=== PATIENT | female | born 1980 | race Caucasian/White ===

== ENCOUNTER 2016-12-28 05:33 | Inpatient (IN) | payer MEDICARE ==
[~2016-12-28] VITALS: Ht 167.6 cm; Wt 65.8 kg
[~2016-12-28 05:33] MED LIST: AMOX500C2 PO; ATOR10TA66 PO; ATOR40TA70 PO; B12 SC; B12 SQ; CINN500C7 PO; FENO134C PO; FENO134C2 PO; FERR-57 PO; FERR-65 PO; FURO40TA4 PO; GMFB600T PO; HDR4T PO; INSU100I14 SC; INSU100I17 SQ; INSU100V SQ; INSU100V16 SQ; INSU100V5 SQ; KCL20TCR PO; LEVE1U SQ; LEVO500T69 PO; LEVO750T6 PO; LIPA1CAP2 PO; LISI10TA2 PO; LISI5TAB PO; MAGN400C PO; MAGN400T6 PO; METF-478 PO; METF-479 PO; METF500T4 PO; METF500T8 PO; METR500T PO; MTF500T PO; OMG1KC PO; ONDA-42 SL; OXYC5TAB71 PO; PROM25SU10 PR; SULF1TAB35 PO; VITAMIN; [UNRECOGNIZED DRUG - CODE] MC; [UNRECOGNIZED DRUG - OTHER]
[2016-12-28] MEDS ORDERED: NS IV 1000 ML 1,000 ML IV ONE (05:36)
--- OUTSIDE RECORDS SUMMARY | 2016-12-28 05:38 | XMS REPORT | Continuity of Care Document ---
Author Author [facility] Organization [facility] Address Unknown Phone Unavailable Care Team Providers Care Parking Cashier Name Role Phone PCP Unavailable Source Comments Some departments are not documenting in the electronic medical record. If you do not see the information that you expected, contact Release of Information in the Health Information Management department at [phone] for further assistance in locating additional records.[facility] Active Allergies and Adverse Reactions Not on File Current Medications Not on file Active Problems Not on file Social History Tobacco Use Types Packs/Day Years Used Date Never Assessed Plan of Care Health Maintenance Due Date Last Done Comments Physical (Comprehensive) 1988 Exam Pertussis Vaccine 1992 Tetanus Vaccine 1998 Cervical Cancer Screening 2002 Influenza Vaccine 07/31/2016 Results from Last 3 Months Not on file
[2016-12-28] MEDS ORDERED: fentaNYL INJECTION 100 MCG/2 ML AMP IVP ONE ×2 (05:45→06:15)
[2016-12-28] MEDS ORDERED: ONDANSETRON 4 MG/2 ML (SDV) Z0FRAN IVP ONE (05:45)
[2016-12-28] MEDS ORDERED: FAMOTIDINE 20MG/2ML IV (PEPCID) IVP ONE (05:45)
[2016-12-28] MEDS ORDERED: inSUlin (REGULAR) HUMAN 1 UNIT/0.01 ML (CHARGE PER UNIT) IV ONE ×2 (05:45→08:15)
[2016-12-28 05:51] LABS: BASOPHILS % (AUTO) 0 % (0-10); EOSINOPHILS # (AUTO) 0.1 10^3/uL (0.0-0.3); EOSINOPHILS % (AUTO) 1 % (0-10); LYMPHOCYTES # (AUTO) 0.9 X 10^3 (1.0-4.0); LYMPHOCYTES % (AUTO) 14 % (12-44); MEAN CORPUSCULAR HEMOGLOBIN 31 PG (25-34); MEAN CORPUSCULAR HGB CONC 38 G/DL (32-36); MEAN CORPUSCULAR VOLUME 82 FL (80-99); MEAN PLATELET VOLUME 10.6 FL (7.4-10.4); MONOCYTES # (AUTO) 1.8 X 10^3 (0.0-1.0); MONOCYTES % (AUTO) 28 % (0-12); NEUTROPHILS # (AUTO) 3.6 X 10^3 (1.8-7.8); NEUTROPHILS % (AUTO) 57 % (42-75); PLATELET COUNT 262 10^3/uL (130-400); RED BLOOD COUNT 4.24 10^6/uL (4.35-5.85); RED CELL DISTRIBUTION WIDTH 14.5 % (10.0-14.5); WHITE BLOOD COUNT 6.4 10^3/uL (4.3-11.0)
--- NOTE | 2016-12-28 06:03 | ED Abdominal Pain ---
General Chief Complaint: Abdominal/GI Problems Stated Complaint: ABD PAIN, N/V Nursing Triage Note: Patient reports having epigastric pain starting about 0430 with N/V starting at 0500. patient reports pain is similar to previous pancreatitis Sepsis Screen: Possible Sepsis Risk Source of Information: Patient, Old Records Exam Limitations: No Limitations (SUZANNA HUNT MD) History of Present Illness Time Seen By Provider: 05:38 Initial Comments This 36-year-old woman presents to the emergency room with complaints of fairly abrupt onset of upper abdominal pain, nausea, and vomiting starting about one hour prior to arrival. She has extensive history of numerous admissions for abdominal pain and pancreatitis. She has insulin-dependent diabetes and has not taken her insulin in the last 24 hours citing reasons of social problems related to her mother's and family arguments. Fingerstick blood sugar was 402. (SUZANNA HUNT MD) Allergies and Home Medications Allergies Coded Allergies: hydromorphone (Unverified Allergy, Intermediate, 08/18/16) Itching Home Medications Insulin Aspart 100 Unit/1 Ml Susp #1 15 UNIT SQ TIDAC Prescribed by: GREER JOHN on 09/30/16 1437 Insulin Determir 1,000 Units/10 Ml Soln #1 25 UNITS SQ BID Prescribed by: GREER JOHN on 09/30/16 1437 Review of Systems Constitutional: no symptoms reported EENTM: No Symptoms Reported Respiratory: No Symptoms Reported Cardiovascular: No Symptoms Reported Gastrointestinal: See HPI Genitourinary: No Symptoms Reported Musculoskeletal: no symptoms reported Skin: no symptoms reported Psychiatric/Neurological: No Symptoms Reported Endocrine: See HPI Hematologic/Lymphatic: No Symptoms Reported (SUZANNA HUNT MD) Past Uqydiih-Ottxcm-Anbjfw Hx Patient Social History Alcohol Use: Denies Use Recreational Drug Use: No Smoking Status: Never a Smoker Recent Foreign Travel: No Contact w/Someone Who Travel: No Recent Infectious Disease Expo: No Recent Hopitalizations: No Physical Abuse Screen: No Sexual Abuse: No (SUZANNA HUNT MD) Immunizations Up To Date Tetanus Booster (TDap): Unknown PED Vaccines UTD: No Date of Pneumonia Vaccine: Oct 21, 2013 Date of Influenza Vaccine: Aug 30, 2016 (SUZANNA HUNT MD) Seasonal Allergies Seasonal Allergies: No (SUZANNA HUNT MD) Surgeries HX Surgeries: Yes (DENTAL SURGERY) Surgeries: Tubal Ligation (SUZANNA HUNT MD) Respiratory Hx Respiratory Disorders: No (SUZANNA HUNT MD) Cardiovascular Hx Cardiac Disorders: Yes Cardiac Disorders: High Cholesterol (SUZANNA HUNT MD) Neurological Hx Neurological Disorders: No (SUZANNA HUNT MD) 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 System Hx 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 Disorders: No Sexually Transmitted Disease: No HIV/AIDS: No Female 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 Disorders: Denies MANAGER UNDERWRITING History: Tubal Ligation (SUZANNA HUNT MD) Genitourinary Hx Genitourinary Disorders: Yes Genitourinary Disorders: Bladder Infection (SUZANNA HUNT MD) Gastrointestinal Hx Gastrointestinal Disorders: Yes Gastrointestinal Disorders: Pancreatitis (SUZANNA HUNT MD) Musculoskeletal Hx Musculoskeletal Disorders: No (SUZANNA HUNT MD) Endocrine Hx Endocrine Disorders: Yes Endocrine Disorders: Diabetes, Insulin dep (SUZANNA HUNT MD) HEENT HX ENT Disorders: No Loss of Vision: Denies Hearing Impairment: Denies (SUZANNA HUNT MD) Cancer Hx Cancer: No (SUZANNA HUNT MD) Psychosocial Hx Psychiatric Problems: No (SUZANNA HUNT MD) Integumentary HX Skin/Integumentary Disorder: Yes (rash/warts to elbows, knees, feet) Skin/Integumentary Disorders: Recent Skin Changes (SUZANNA HUNT MD) Blood Transfusions Hx Blood Disorders: No Adverse Reaction to a Blood Tr: No (SUZANNA HUNT MD) Family Medical History Significant Family History: Heart Disease, CAD Under 55 Years Old, Diabetes, GI Disease, Hypertension Family Medial History: Cancer 03 MOTHER 09 BROTHER GRANDMOTHER Family history: Arthritis 03 MOTHER Family history: Breast disease 03 MOTHER Family history: Cardiovascular disease 03 MOTHER Family history: Diabetes mellitus 03 MOTHER 09 BROTHER GRANDMOTHER (SUZANNA HUNT MD) Family Medial History: Cancer 03 MOTHER 09 BROTHER GRANDMOTHER Family history: Arthritis 03 MOTHER Family history: Breast disease 03 MOTHER Family history: Cardiovascular disease 03 MOTHER Family history: Diabetes mellitus 03 MOTHER 09 BROTHER GRANDMOTHER (KIAN AKERS MD) Physical Exam Vital Signs VS - Last 72 Hours, by Label 12/28/16 12/28/16 05:39 05:49 Temp 97.3 97.3 Pulse 117 Resp 24 B/P 162/103 Pulse Ox 99 (KIAN AKERS MD) Vital Signs Capillary Refill : Less Than 3 Seconds (SUZANNA HUNT MD) General Appearance: moderate distress HEENT: PERRL/EOMI normal ENT inspection pharynx normal Neck: normal inspection Respiratory: lungs clear normal breath sounds no respiratory distress no accessory muscle use Cardiovascular: no edema no murmur tachycardia Gastrointestinal: normal bowel sounds soft tenderness (diffuse but more concentrated in the epigastrium) Extremities: normal inspection no pedal edema 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 no motor/sensory deficits alert normal mood/affect oriented x 3 Skin: normal color warm/dry (SUZANNA HUNT MD) Progress/Results/Core Measures Results/Orders Lab Results Laboratory Tests Test 12/28/16 05:44 12/28/16 05:45 12/28/16 06:37 12/28/16 07:01 Range/Units Glucometer 402 *H 285 H 70-110 MG/DL Alanine Aminotransferase (ALT/SGPT) 0-55 U/L Albumin 4.1 3.2-4.5 G/DL Alkaline Phosphatase 57 40-136 U/L Anion Gap 27 H 5-14 MMOL/L Aspartate Amino Transf (AST/SGOT) 5-34 U/L BUN/Creatinine Ratio 8 Basophils # (Auto) 0.0 0.0-0.1 10^3/uL Basophils (%) (Auto) 0 0-10 % Blood Urea Nitrogen 7 7-18 MG/DL Calcium Level 9.4 8.5-10.1 MG/DL Carbon Dioxide Level < 10 *L 21-32 MMOL/L Chloride Level 88 L 98-107 MMOL/L Creatinine 0.87 0.60-1.30 MG/DL Eosinophils # (Auto) 0.1 0.0-0.3 10^3/uL Eosinophils (%) (Auto) 1 0-10 % Estimat Glomerular Filtration Rate > 60 Glucose Level 352 H 70-105 MG/DL Hematocrit 35 35-52 % Hemoglobin 13.1 11.5-16.0 G/DL Lipase 320 H 8-78 U/L Lymphocytes # (Auto) 0.9 L 1.0-4.0 X 10^3 Lymphocytes (%) (Auto) 14 12-44 % Mean Corpuscular Hemoglobin 31 25-34 PG Mean Corpuscular Hemoglobin Concent 38 H 32-36 G/DL Mean Corpuscular Volume 82 80-99 FL Mean Platelet Volume 10.6 H 7.4-10.4 FL Monocytes # (Auto) 1.8 H 0.0-1.0 X 10^3 Monocytes (%) (Auto) 28 H 0-12 % Neutrophils # (Auto) 3.6 1.8-7.8 X 10^3 Neutrophils (%) (Auto) 57 42-75 % Platelet Count 262 130-400 10^3/uL Potassium Level 3.2 L 3.6-5.0 MMOL/L Red Blood Count 4.24 L 4.35-5.85 10^6/uL Red Cell Distribution Width 14.5 10.0-14.5 % Sodium Level 125 *L 135-145 MMOL/L Total Bilirubin 0.2 0.1-1.0 MG/DL Total Protein 12.2 H 6.4-8.2 G/DL Triglycerides Level 7540 H <150 MG/DL White Blood Count 6.4 4.3-11.0 10^3/uL Urine Bacteria NEGATIVE /HPF Urine Bilirubin NEGATIVE NEGATIVE Urine Casts NONE /LPF Urine Clarity CLEAR Urine Color YELLOW Urine Crystals NONE /LPF Urine Culture Indicated NO Urine Glucose (UA) 4+ H NEGATIVE Urine Ketones 4+ H NEGATIVE Urine Leukocyte Esterase NEGATIVE NEGATIVE Urine Mucus NEGATIVE /LPF Urine Nitrite NEGATIVE NEGATIVE Urine Protein 3+ H NEGATIVE Urine RBC NONE /HPF Urine RBC (Auto) 1+ H NEGATIVE Urine Specific [place] 1.020 1.016-1.022 Urine Squamous Epithelial Cells 10-25 H /HPF Urine Urobilinogen NORMAL NORMAL MG/DL Urine WBC 0-2 /HPF Urine pH 6 5-9 (KIAN AKERS MD) My Orders Orders-KIAN AKERS MD Triglycerides (12/28/16 06:55) (KIAN AKERS MD) Medications Given in ED Current Medications Medications Dose Ordered Sig/Faheem Route Start Time Stop Time Status Last Admin Dose Admin Famotidine 20 mg ONCE ONCE IVP 12/28/16 05:45 12/28/16 05:46 DC 12/28/16 05:48 20 MG Fentanyl Citrate 100 mcg ONCE ONCE IVP 12/28/16 05:45 12/28/16 05:46 DC 12/28/16 05:49 100 MCG Fentanyl Citrate 100 mcg ONCE ONCE IVP 12/28/16 06:15 12/28/16 06:16 DC 12/28/16 06:09 100 MCG Insulin Human Regular 10 unit ONCE ONCE IV 12/28/16 05:45 12/28/16 05:46 DC 12/28/16 05:49 10 UNIT Ondansetron HCl 8 mg ONCE ONCE IVP 12/28/16 05:45 12/28/16 05:46 DC 12/28/16 05:48 8 MG Sodium Chloride 1,000 ml @ 0 mls/hr Q0M ONCE IV 12/28/16 05:36 12/28/16 05:39 DC 12/28/16 05:48 0 MLS/HR (KIAN AKERS MD) Vital Signs/I&O Vital Sign - Last 12Hours 12/28/16 12/28/16 05:39 05:49 Temp 97.3 97.3 Pulse 117 Resp 24 B/P 162/103 Pulse Ox 99 (KIAN AKERS MD) Blood Pressure Mean: 122 Progress Note : Time: 06:03 Progress Note Labs were ordered. Patient was given fentanyl, Pepcid, and Zofran for initial treatment of symptoms. IV fluids were initiated. Fingerstick blood sugar was found to be 402. 10 units of insulin was added to her liter of normal saline. (SUZANNA HUNT MD) Departure Communication Progress Notes Patient care was transferred [place] by Dr. Sanchez at 0600 hours. The patient is a 36-year-old white female diabetic who has had multiple ER contacts and admissions for pancreatitis, hypertriglyceridemia, and on occasion diabetic ketoacidosis. Her compliance with medical regimen has been poor. She reports that she didn't take her insulin yesterday because of stress. Physical exam: She has been very whiny and tearful. She has taken goodly amounts of fentanyl and frequently requests more. Lungs are clear to auscultation. CV is regular without murmur. The abdomen is tender to palpation. The patient was discussed with Dr. Chan and will be admitted and placed on the diabetic/ hypertriglyceridemia insulin drip protocol. (KIAN AKERS MD) Impression Impression: Primary Impression: pancreatitis Disposition: ADMITTED INPATIENT Condition: Improved Decision to Admit Reason: Admit from ER (General) Decision to Admit/Date: Dec 28, 2016 Time/Decision to Admit Time: 07:29 (KIAN AKERS MD) Departure-Patient Inst. Referrals: [facility] ROSS MD (PCP/Family) Primary Care Physician SUZANNA HUNT MD Dec 28, 2016 06:03 KIAN AKERS MD Dec 28, 2016 07:29
[2016-12-28 06:10] LABS: ALBUMIN 4.1 G/DL (3.2-4.5); BILIRUBIN,TOTAL 0.2 MG/DL (0.1-1.0); BLOOD UREA NITROGEN 7 MG/DL (7-18); BUN/CREATININE RATIO 8; CALCIUM 9.4 MG/DL (8.5-10.1); CHLORIDE 88 MMOL/L (98-107); CREATININE SERUM 0.87 MG/DL (0.60-1.30); GFR ESTIMATED > 60; LIPASE 320 U/L (8-78); POTASSIUM 3.2 MMOL/L (3.6-5.0); TOTAL PROTEIN 12.2 G/DL (6.4-8.2)
[2016-12-28 06:16] LABS: SODIUM 125 MMOL/L (135-145)
[2016-12-28 06:33] LABS: GLUCOSE 352 MG/DL (70-105)
[2016-12-28 06:36] LABS: ANION GAP 27 MMOL/L (5-14)
[2016-12-28 06:37] LABS: CARBON DIOXIDE < 10 MMOL/L (21-32)
[2016-12-28 07:06] LABS: BILIRUBIN,URINE NEGATIVE (NEGATIVE); KETONES,URINE 4+ (NEGATIVE); LEUKOCYTE ESTERASE ,URINE NEGATIVE (NEGATIVE); NITRITE,URINE NEGATIVE (NEGATIVE); PH,URINE 6 (5-9); PROTEIN,URINE 3+ (NEGATIVE); UROBILINOGEN,URINE NORMAL (NORMAL)
[2016-12-28 07:18] LABS: WBC,URINE 0-2 /HPF
[2016-12-28] MEDS ORDERED: NS IV 1000 ML 1,000 ML IV SCH (07:30)
[2016-12-28 08:00] VITALS: BP 141/99
[2016-12-28] MEDS: fentaNYL INJECTION 100 MCG/2 ML AMP IVP PRN ×7 (08:24→22:32)
[2016-12-28] MEDS ORDERED: CATHETER FLUSH 10 ML SYR IV PRN (08:30)
[2016-12-28] MEDS ORDERED: ONDANSETRON 4 MG/2 ML (SDV) Z0FRAN IVP PRN (08:30)
[2016-12-28 08:55] LABS: MAGNESIUM 2.8 MG/DL (1.8-2.4)
[2016-12-28] MEDS: NS IV 1000 ML 1,000 ML IV SCH ×4 (09:02→22:20)
[2016-12-28] MEDS: inSUlin REGULAR TPN/DRIP ONLY 250 UNITS in NORMAL SALINE 250 ML IV SCH (09:06)
[2016-12-28] MEDS: D5 NS 1000 ML IV SOLUTION 1,000 ML IV SCH ×5 (09:07→23:35)
[2016-12-28 11:21] VITALS: BP 134/84
[2016-12-28 12:31] VITALS: BP 134/84
[2016-12-28 15:16] VITALS: BP 133/88
--- NOTE | 2016-12-28 17:20 | History & Physicial (CHS) ---
HPI History of Present Illness: This is a 36 yo female well know to this service with hx of multiple recurrent admissions for severe hypertriglyceridemia resulting in pancreatitis. Pt reports Dr. Sandhu as her PCP however she has no showed her appointments in Sep , Aug and Dec and has not been seen in the clinic since 12/2014. She has not been filling meds through [facility] and per her VC ext med hx the only prescriptions she has filled was 1 vial each of Levemir and Novolog from her last hospitalization 09/30/16. Pt reports she has been taking Levemir 80 units daily and Novolog 44 units with meals and reports she was taking this until 2 days ago but her refill history does substantiate this. Pt reports she has been under severe stress due to the recent of her mother. She reports over the past day she began having abdominal pain and nausea c/w with her prior episodes of pancreatitis. Pt has been hospitalized multiple times requiring insulin drip to bring down her triglycerides. Pt has been non-compliant with medications, follow-up appointments and recommendation for referral to for her severe hypertriglyceridemia. Source: patient Exam Limitations: no limitations Date seen by provider: Dec 28, 2016 Time seen by provider: 10:30 Attending Physician Mariluz Chan DO PCP Aguila Sandhu MD Consult Date of Admission Dec 28, 2016 at 07:24 Home Medications Home Medications Reviewed patient Home Medication Reconciliation Form Allergies Coded Allergies: hydromorphone (Unverified Allergy, Intermediate, 08/18/16) Itching YEK-Kmtwzq-Ydsgmh Hx Patient Social History Alcohol Use: Denies Use Recreational Drug Use: No Smoking Status: Never a Smoker Recent Foreign Travel: No Contact w/other who traveled: No Recent Hopitalizations: No Recent Infectious Disease Expo: No Physical Abuse Screen: No Sexual Abuse: No Immunizations Up To Date Tetanus Booster (TDap): Unknown Date of Pneumonia Vaccine: Oct 21, 2013 Date of Influenza Vaccine: Aug 30, 2016 Past Medical History Past Medical History 1. 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 Acute on Chronic Pancreatitis (admitted >10 times ) 3. HTG- suggestive of familial hypertriglyceridemia- requires IV insulin drip with NPO during admisison to decrease with non-compliance with medications and diet 4. Poly Cystic Ovarian Syndrome 5. Iron Deficiency Anemia 6. Vit B12 Deficiency 7. Anemia requiring transfusions 8. Pseudohyponatremia due to severe hypertriglyceridemia. 9. Non-compliance with medicaitons and diet Past Surgical History 1. Tubal Ligation Family Medical History Significant Family History: Heart Disease, CAD Under 55 Years Old, Diabetes, GI Disease, Hypertension Family History: Cancer 03 MOTHER 09 BROTHER GRANDMOTHER Family history: Arthritis 03 MOTHER Family history: Breast disease 03 MOTHER Family history: Cardiovascular disease 03 MOTHER Family history: Diabetes mellitus 03 MOTHER 09 BROTHER GRANDMOTHER Review of Systems (CHC) Constitutional: see HPI All Other Systems Reviewed Negative Unless Noted: Yes Reviewed Test Results Reviewed Test Results Lab Laboratory Tests 12/28/16 05:44: Glucometer 402*H 12/28/16 05:45: Alanine Aminotransferase (ALT/SGPT) , Albumin 4.1, Alkaline Phosphatase 57, Anion Gap 27H, Aspartate Amino Transf (AST/SGOT) , BUN/Creatinine Ratio 8, Basophils # (Auto) 0.0, Basophils (%) (Auto) 0, Blood Urea Nitrogen 7, Calcium Level 9.4, Carbon Dioxide Level < 10*L, Chloride Level 88L, Creatinine 0.87, Eosinophils # (Auto) 0.1, Eosinophils (%) (Auto) 1, Estimat Glomerular Filtration Rate > 60, Glucose Level 352H, Hematocrit 35, Hemoglobin 13.1, Lipase 320H, Lymphocytes # (Auto) 0.9L, Lymphocytes (%) (Auto) 14, Mean Corpuscular Hemoglobin 31, Mean Corpuscular Hemoglobin Concent 38H, Mean Corpuscular Volume 82, Mean Platelet Volume 10.6H, Monocytes # (Auto) 1.8H, Monocytes (%) (Auto) 28H, Neutrophils # (Auto) 3.6, Neutrophils (%) (Auto) 57, Platelet Count 262, Potassium Level 3.2L, Red Blood Count 4.24L, Red Cell Distribution Width 14.5, Sodium Level 125*L, Total Bilirubin 0.2, Total Protein 12.2H, Triglycerides Level 7540H, White Blood Count 6.4 12/28/16 06:37: Glucometer 285H 12/28/16 07:01: Urine Bacteria NEGATIVE, Urine Bilirubin NEGATIVE, Urine Casts NONE, Urine Clarity CLEAR, Urine Color YELLOW, Urine Crystals NONE, Urine Culture Indicated NO, Urine Glucose (UA) 4+H, Urine Ketones 4+H, Urine Leukocyte Esterase NEGATIVE , Urine Mucus NEGATIVE, Urine Nitrite NEGATIVE, Urine Protein 3+H, Urine RBC NONE, Urine RBC (Auto) 1+H, Urine Specific [place] 1.020, Urine Squamous Epithelial Cells 10-25H, Urine Urobilinogen NORMAL, Urine WBC 0-2, Urine pH 6 12/28/16 08:23: Glucometer 341H 12/28/16 08:25: Lipase 282H, Magnesium Level 2.8H 12/28/16 10:20: Glucometer 281H 12/28/16 11:19: Glucometer 256H 12/28/16 12:16: Glucometer 213H 12/28/16 13:27: Glucometer 198H 12/28/16 14:24: Glucometer 173H 12/28/16 15:18: Glucometer 151H 12/28/16 16:30: Glucometer 130H Physical Exam-(CHC) Physical Exam Vital Signs VS - Last 72 Hours, by Label 12/28/16 12/28/16 12/28/16 12/28/16 05:39 05:49 07:25 08:00 Temp 97.3 97.3 Pulse 117 101 Resp 24 18 B/P 162/103 Pulse Ox 99 98 97 O2 Delivery Room Air Room Air 12/28/16 12/28/16 12/28/16 12/28/16 08:00 11:21 12:31 13:00 Temp 96.6 97.7 97.7 Pulse 102 93 93 120 Resp 20 20 20 B/P 141/99 134/84 134/84 Pulse Ox 96 97 97 O2 Delivery Room Air Room Air Room Air 12/28/16 15:16 Temp 97.3 Pulse 112 Resp 18 B/P 133/88 Pulse Ox 95 O2 Delivery Room Air Capillary Refill : Less Than 3 Seconds General Appearance: WD/WN no apparent distress HEENT: PERRL/EOMI Respiratory: lungs clear normal breath sounds no respiratory distress Cardiovascular: regular rate, rhythm Gastrointestinal: soft Neurologic/Psychiatric: alert normal mood/affect oriented x 3 Skin: normal color warm/dry Assessment/Plan Assessment/Plan Admission Dx 1. Severe hypertriglyceridemia 2. Pancreatitis secondary to #1 3. DM Type 2, uncontrolled w/ hyperglycemia 4. Pseudohyponatremia 5. Non-compliance with medical therapy Plan 1. Severe hypertriglyceridemia ADM 12/28 - admitted to ICU for insulin drip per severe hypertriglyceridemia order set. - will keep npo/ice chips only and insulin drip until Trig decrease significantly 2. Pancreatitis secondary to #1 ADM - keep npo, control pain/nausea 3. DM Type 2, uncontrolled w/ hyperglycemia ADM - CO2 <10 w/ AG 27 and urine ketone - metabolic acidosis likely secondary to ketosis but also has been felt to be inaccurate secondary to severe hypertriglyceridemia which improves but historically does not complete resolve until trig normalize 4. Pseudohyponatremia secondary to severe hypertriglyceridemia 5. Non-compliance with medical therapy ADM - Program Associate consulted but has been extensively involved in patients case in the past due to ongoing non-compliance leading to preventable hospitalizations. - Pt does not keep appointments and has not been seen at [facility] since 12/2014; not obtaining prescriptions other than at hospital discharge. Diagnosis/Problems: Clinical Quality Measures DVT/VTE Risk/Contraindication: Risk Factor Score Per Nursin RFS Level Per Nursing on Admit: 3=High Risk Score Comment: MARILUZ Delaney DO Dec 28, 2016 17:20
[2016-12-28 20:00] VITALS: BP 108/78
[2016-12-28] MEDS: ENOXAPARIN 40 MG/0.4 ML (LOVENOX) SYR SQ SCH (22:21)
[2016-12-29] VITALS: BP 98/68
[2016-12-29] MEDS: NS IV 1000 ML 1,000 ML IV SCH ×4 (00:05→12:00)
[2016-12-29] MEDS: fentaNYL INJECTION 100 MCG/2 ML AMP IVP PRN ×5 (00:32→08:43)
[2016-12-29] MEDS: D5 NS 1000 ML IV SOLUTION 1,000 ML IV SCH ×2 (03:40→07:45)
[2016-12-29 04:00] VITALS: BP 95/63
[2016-12-29 04:49] LABS: ALANINE AMINOTRANSFERASE 11 U/L (0-55); ALBUMIN 3.2 G/DL (3.2-4.5); ANION GAP 11 MMOL/L (5-14); ASPARTATE AMINO TRANSFERASE 36 U/L (5-34); BILIRUBIN,TOTAL 0.2 MG/DL (0.1-1.0); BLOOD UREA NITROGEN 3 MG/DL (7-18); BUN/CREATININE RATIO 5; CALCIUM 7.6 MG/DL (8.5-10.1); CARBON DIOXIDE 19 MMOL/L (21-32); CHLORIDE 109 MMOL/L (98-107); CREATININE SERUM 0.57 MG/DL (0.60-1.30); GFR ESTIMATED > 60; GLUCOSE 71 MG/DL (70-105); LIPASE 232 U/L (8-78); POTASSIUM 3.9 MMOL/L (3.6-5.0); SODIUM 139 MMOL/L (135-145); TRIGLYCERIDES 1476 MG/DL (<150)
[2016-12-29 08:00] VITALS: BP 88/57
[2016-12-29] MEDS: inSUlin REGULAR TPN/DRIP ONLY 250 UNITS in NORMAL SALINE 250 ML IV SCH (08:14)
--- NOTE | 2016-12-29 11:24 | Progress Note (SOAP) ---
Subjective Subjective/Events-last exam States that her pain is much improved and she would like to try and eat. Denies any nausea or vomiting overnight. Denies any bowel movements overnight. No chest pain or shortness of breath Date seen by provider: Dec 29, 2016 Objective Exam Last Set of Vital Signs Vital Signs Date Time Temp Pulse Resp B/P Pulse Ox O2 Delivery O2 Flow Rate FiO2 12/29/16 08:09 97 Room Air 12/29/16 08:00 96.7 92 20 88/57 Capillary Refill : Less Than 3 Seconds I&O Bad tableGeneral: Alert, Oriented X3, Cooperative, No Acute Distress Lungs: Clear to Auscultation, Normal Air Movement Heart: Regular Rate, Normal S1, Normal S2, No Murmurs Abdomen: Normal Bowel Sounds, Soft, Other (Mild epigastric ttp) Extremities: No Edema, No Tenderness/Swelling Neuro: Normal Speech Psych/Mental Status: Mental Status NL, Mood NL Results/Procedures Lab Laboratory Tests 12/28/16 12:16: Glucometer 213H 12/28/16 13:27: Glucometer 198H 12/28/16 14:24: Glucometer 173H 12/28/16 15:18: Glucometer 151H 12/28/16 16:30: Glucometer 130H 12/28/16 17:28: Glucometer 117H 12/28/16 18:31: Glucometer 95 12/28/16 19:34: Glucometer 88 12/28/16 20:26: Glucometer 121H 12/28/16 21:37: Glucometer 134H 12/28/16 22:35: Glucometer 136H 12/28/16 23:33: Glucometer 139H 12/29/16 00:29: Glucometer 133H 12/29/16 01:37: Glucometer 130H 12/29/16 02:33: Glucometer 121H 12/29/16 03:43: Glucometer 104 12/29/16 04:00: Alanine Aminotransferase (ALT/SGPT) 11, Albumin 3.2, Alkaline Phosphatase 34L, Anion Gap 11, Aspartate Amino Transf (AST/SGOT) 36H, BUN/Creatinine Ratio 5, Blood Urea Nitrogen 3L, Calcium Level 7.6L, Carbon Dioxide Level 19L, Chloride Level 109H, Creatinine 0.57L, Estimat Glomerular Filtration Rate > 60, Glucose Level 71, Lipase 232H, Potassium Level 3.9, Sodium Level 139, Total Bilirubin 0.2, Total Protein 7.0, Triglycerides Level 1476H 12/29/16 05:30: Glucometer 91 12/29/16 06:35: Glucometer 87 12/29/16 07:41: Glucometer 86 12/29/16 08:38: Glucometer 88 12/29/16 09:38: Glucometer 87 12/29/16 10:35: Glucometer 87 Assessment/Plan Assessment/Plan Admission Dx 1. Severe hypertriglyceridemia 2. Pancreatitis secondary to #1 3. DM Type 2, uncontrolled w/ hyperglycemia 4. Pseudohyponatremia 5. Non-compliance with medical therapy Plan 1. Severe hypertriglyceridemia ADM 12/28 - admitted to ICU for insulin drip per severe hypertriglyceridemia order set. 12/29- TG improved, advance diet as tolerated 2. Pancreatitis secondary to #1 ADM - keep npo, control pain/nausea 12/29 Advance diet 3. DM Type 2, uncontrolled w/ hyperglycemia ADM - CO2 <10 w/ AG 27 and urine ketone - metabolic acidosis likely secondary to ketosis but also has been felt to be inaccurate secondary to severe hypertriglyceridemia which improves but historically does not complete resolve until trig normalize 12/29- Transition to Sub Cut Insulin, A1c/TSH pending 4. Pseudohyponatremia secondary to severe hypertriglyceridemia 12/29- Resolved 5. Non-compliance with medical therapy ADM - Document Coordinator consulted but has been extensively involved in patients case in the past due to ongoing non-compliance leading to preventable hospitalizations. - Pt does not keep appointments and has not been seen at [facility] since 12/2014; not obtaining prescriptions other than at hospital discharge. 12/29- Discussed the importance of follow up with primary care doctor Diagnosis/Problems: Clinical Quality Measures DVT/VTE Risk/Contraindication: Risk Factor Score Per Nursin RFS Level Per Nursing on Admit: 3=High Risk Score Comment: MONICA Sam MD Dec 29, 2016 11:24
[2016-12-29] MEDS: HYDROcodone/APAP 5 MG/325 MG (LORTAB) TAB PO PRN ×2 (12:00→21:08)
[2016-12-29] MEDS: inSUlin ASPART (NovoLOG) 1 UNIT/0.01 ML (CHARGE PER UNIT) SC SCH ×3 (12:03→21:03)
[2016-12-29 12:23] VITALS: BP 103/66
[2016-12-29] MEDS: ENOXAPARIN 40 MG/0.4 ML (LOVENOX) SYR SQ SCH (16:55)
[2016-12-29 20:52] VITALS: BP 113/66
[2016-12-29] MEDS ORDERED: inSUlin DETERMIR 1 UNIT/0.01 ML (LEVEMIR) CHARGE PER UNIT SQ SCH (21:00)
[2016-12-30 00:20] VITALS: BP 111/61
[2016-12-30] MEDS: HYDROcodone/APAP 5 MG/325 MG (LORTAB) TAB PO PRN (03:39)
[2016-12-30 04:00] VITALS: BP 124/64
[2016-12-30] MEDS: inSUlin ASPART (NovoLOG) 1 UNIT/0.01 ML (CHARGE PER UNIT) SC SCH (06:13)
[2016-12-30 07:07] LABS: ALANINE AMINOTRANSFERASE 58 U/L (0-55); ANION GAP 9 MMOL/L (5-14); ASPARTATE AMINO TRANSFERASE 80 U/L (5-34); BILIRUBIN,TOTAL 0.2 MG/DL (0.1-1.0); BLOOD UREA NITROGEN 6 MG/DL (7-18); BUN/CREATININE RATIO 10; CALCIUM 7.9 MG/DL (8.5-10.1); CARBON DIOXIDE 21 MMOL/L (21-32); CHLORIDE 107 MMOL/L (98-107); CREATININE SERUM 0.59 MG/DL (0.60-1.30); GFR ESTIMATED > 60; GLUCOSE 203 MG/DL (70-105); LIPASE 123 U/L (8-78); POTASSIUM 3.4 MMOL/L (3.6-5.0); SODIUM 137 MMOL/L (135-145); TOTAL PROTEIN 6.2 G/DL (6.4-8.2); TRIGLYCERIDES 1399 MG/DL (<150)
[2016-12-30 07:27] LABS: THYROID STIMULATING HORMONE 0.89 UIU/ML (0.35-4.94)
[2016-12-30 08:00] VITALS: BP 108/62
[2016-12-30] MEDS ORDERED: INSU100I14 SQ (08:13)
[2016-12-30] MEDS ORDERED: INSU100V5 SQ (08:13)
[2016-12-30] MEDS ORDERED: KCL 20 MEQ TAB (K-DUR) PO NR (08:15)
--- NOTE | 2016-12-30 08:28 | Discharge Instructions ---
Discharge Inst-[facility] Discharge Medications New, Converted or Re-Newed RX: Other ([facility]) New Medications: Insulin Aspart (Novolog Flexpen) 300 Units/3 Ml Solution 20 UNITS SQ AC Days 30 EA Insulin Determir (Levemir) 1,000 Units/10 Ml Soln 40 UNIT SQ HS Days 30 EA Patient Instructions Goal/Follow Up Appt: You have a follow up appt at [facility] on Jan 06 @ 2pm Patient Instructions: - Your diabetes is very uncontrolled, it is very important that you take your insulin everyday and make your follow up appts at [facility] Return to The Hospital For: Increased abdominal pain Uncontrolled blood sugars Unable to tolerate food Activity & Diet Discharge Diet: ADA Diet Activity as Tolerated: Yes Copy Copies To 1: [facility] ROSS MD, HOLLY R MD Dec 30, 2016 08:28
--- NOTE | 2016-12-30 08:29 | Discharge Summary ---
Diagnosis/Chief Complaint Date of Admission Dec 28, 2016 at 07:24 Date of Discharge 12/30/2016 Admission Diagnosis Admission Diagnosis 1. Severe hypertriglyceridemia 2. Pancreatitis secondary to #1 3. DM Type 2, uncontrolled w/ hyperglycemia 4. Pseudohyponatremia 5. Non-compliance with medical therapy Discharge Diagnosis See Above Chief Complaint/HPI Chief Complaint/HPI This is a 36 yo female well know to this service with hx of multiple recurrent admissions for severe hypertriglyceridemia resulting in pancreatitis. Pt reports Dr. Ross as her PCP however she has no showed her appointments in Sep , Aug and Dec of 2015 and has not been seen in the clinic since 12/2014. She has not been filling meds through [facility] and per her VC ext med hx the only prescriptions she has filled was 1 vial each of Levemir and Novolog from her last hospitalization 09/30/16. Pt reports she has been taking Levemir 80 units daily and Novolog 44 units with meals and reports she was taking this until 2 days ago but her refill history does substantiate this. Pt reports she has been under severe stress due to the recent of her mother. She reports over the past day she began having abdominal pain and nausea c/w with her prior episodes of pancreatitis. Pt has been hospitalized multiple times requiring insulin drip to bring down her triglycerides. Pt has been non-compliant with medications, follow-up appointments and recommendation for referral to for her severe hypertriglyceridemia. Discharge Summary-Simple/Stand Procedures None Consultations None Discharge Physical Examination Allergies: Coded Allergies: hydromorphone (Unverified Allergy, Intermediate, 08/18/16) Itching Vitals & I&Os Vital Sign - Last 12Hours Date Time Temp Pulse Resp B/P Pulse Ox O2 Delivery O2 Flow Rate FiO2 12/30/16 07:00 89 12/30/16 04:00 98.4 20 124/64 97 Nasal Cannula 2.00 Intake and Output 12/30/16 00:00 Intake Total 1370 ml Output Total 1100 ml Balance 270 ml General Appearance: Alert, Oriented X3, Cooperative, No Acute Distress HEENT: Atraumatic, PERRLA, EOMI, Mucous Memb Moist/[employer] Respiratory: Clear to Auscultation, Normal Air Movement Cardiovascular: Regular Rate, Normal S1, Normal S2, No Murmurs Abdominal: Normal Bowel Sounds, Soft, No Hepatosplenomegaly, No Masses, Other ( mild ttp epigastric region, much improved since admission) Extremities: No Clubbing, No Cyanosis, No Edema, Normal Pulses, No Tenderness/ Swelling Skin: No Rashes, No Breakdown, No Significant Lesion Neuro: Normal Gait, Normal Speech, Strength at 5/5 X4 Ext, Sensation Intact, Cranial Nerves 3-12 NL Psych/Mental Status: Mental Status NL, Mood NL Hospital Course See final discharge diagnosis. Labs A1c 10.4 Pending Labs None pending Discussion & Recommendations 36 yo with multiple admissions for similar complaints of abdominal pain with pancreatitis elevated triglycerides and uncontrolled sugars. Patient states that she has been taking insulin however there is no record of any recent fills on her insulin. Pain much improved during admission and she was able to tolerate PO diet. Triglyceride and lipase trended down. Patient was restarted on home insulin and Novolog samples were set up for patient to machine records units supervisor from clinic. Levemir was set up to be vouchered for patient to machine records units supervisor from [facility]. Close follow up with Dr Ross the patients PCP was set up. Discharge Condition at discharge Stable Instructions to patient/family Please see electonic discharge instructions given to patient. Discharge Medications Reviewed and agree with Discharge Medication list on patient's Discharge Instruction sheet Clinical Quality Measures DVT/VTE Risk/Contraindication: Risk Factor Score Per Nursin RFS Level Per Nursing on Admit: 3=High Risk Score Comment: Ladarius ordered Copy Copies To 1: MC ROSS MD, HOLLY R MD Dec 30, 2016 08:29
== END 2016-12-30 09:20 | disposition home or self-care (01) | DRG 642 ==
LOC: EDUNIT# 05:33 → ER 05:35 → ICU 07:24 → 4TH 12-29 14:44
PROVIDERS: ADMIT Family Medicine; ATTEND Family Medicine
DX: E78.1 Pure hyperglyceridemia (principal); K85.90 Acute pancreatitis without necrosis or infection, unspecified; E87.1 Hypo-osmolality and hyponatremia; E87.2 Acidosis; E11.65 Type 2 diabetes mellitus with hyperglycemia; Z79.4 Long term (current) use of insulin; Z91.11 Patient's noncompliance with dietary regimen; Z91.14 Patient's other noncompliance with medication regimen
CPT/HCPCS: 36415; 80053; 81000; 82962; 83036; 83690; 83735; 84443; 84478; 85025; 96361; 96374; 96375

== ENCOUNTER 2017-01-27 14:34 | Inpatient (IN) | payer MEDICARE ==
[~2017-01-27] VITALS: Ht 165.1 cm; Wt 74.0 kg
[~2017-01-27 14:34] MED LIST changes: +INSU100I14 SQ
[2017-01-27] MEDS ORDERED: fentaNYL INJECTION 100 MCG/2 ML AMP IVP ONE ×2 (15:00→16:15)
[2017-01-27] MEDS ORDERED: NS IV 1000 ML 1,000 ML IV SCH (15:00)
[2017-01-27] MEDS ORDERED: ONDANSETRON 4 MG/2 ML (SDV) Z0FRAN IVP ONE (15:00)
--- NOTE | 2017-01-27 15:01 | ED Abdominal Pain ---
General Chief Complaint: Abdominal/GI Problems Stated Complaint: ABD PAIN, NAUSEA Source of Information: Patient Exam Limitations: No Limitations History of Present Illness Time Seen By Provider: 14:59 Initial Comments To ER with reports of abdominal pain and nausea. She has a history of pancreatitis secondary to elevated triglycerides. She also is a diabetic. She states that she has not taken her insulin since Thursday, 01/24 because she ran out of it. She also states that she has not been taking her cholesterol medications and has instead been "watching her diet". Abdominal pain started this morning, nausea started last night. Timing/Duration: 1-2 Days Severity/Quality: Moderate Location: Epigastric Radiation: No Radiation Activities at Onset: None Associated Symptoms: Nausea/Vomiting Allergies and Home Medications Allergies Coded Allergies: hydromorphone (Unverified Allergy, Intermediate, 08/18/16) Itching Home Medications Insulin Aspart 300 Units/3 Ml Solution 30Days 20 UNITS SQ AC Prescribed by: MONICA ZHENG on 12/30/16812 Insulin Determir 1,000 Units/10 Ml Soln 30Days 40 UNIT SQ HS Prescribed by: MONICA ZHENG on 12/30/16812 Review of Systems Constitutional: see HPI EENTM: No Symptoms Reported Respiratory: No Symptoms Reported Cardiovascular: No Symptoms Reported Gastrointestinal: See HPI Abdominal PainDenies Constipated, Denies Diarrhea, NauseaDenies Vomiting Genitourinary: No Symptoms Reported Musculoskeletal: no symptoms reported Skin: no symptoms reported Psychiatric/Neurological: No Symptoms Reported Endocrine: No Symptoms Reported Hematologic/Lymphatic: No Symptoms Reported Past Kxpnhbf-Exwzil-Hxafut Hx Patient Social History Recent Foreign Travel: No Contact w/Someone Who Travel: No Recent Hopitalizations: No Immunizations Up To Date Tetanus Booster (TDap): Unknown PED Vaccines UTD: No Date of Pneumonia Vaccine: Oct 21, 2013 Date of Influenza Vaccine: Aug 30, 2016 Seasonal Allergies Seasonal Allergies: No Surgeries HX Surgeries: Yes (DENTAL SURGERY) Surgeries: Tubal Ligation Respiratory Hx Respiratory Disorders: No Cardiovascular Hx Cardiac Disorders: Yes Cardiac Disorders: High Cholesterol Neurological Hx Neurological Disorders: No 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 System Hx 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 Disorders: No Sexually Transmitted Disease: No HIV/AIDS: No Female 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 Disorders: Denies 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: Tubal 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 Genitourinary Hx Genitourinary Disorders: Yes Genitourinary Disorders: Bladder Infection Gastrointestinal Hx Gastrointestinal Disorders: Yes Gastrointestinal Disorders: Pancreatitis Musculoskeletal Hx Musculoskeletal Disorders: No Endocrine Hx Endocrine Disorders: Yes Endocrine Disorders: Diabetes, Insulin dep HEENT HX ENT Disorders: No Loss of Vision: Denies Hearing Impairment: Denies Cancer Hx Cancer: No Psychosocial Hx Psychiatric Problems: No Integumentary HX Skin/Integumentary Disorder: Yes (rash/warts to elbows, knees, feet) Skin/Integumentary Disorders: Recent Skin Changes Blood Transfusions Hx Blood Disorders: No Adverse Reaction to a Blood Tr: No Family Medical History Significant Family History: Heart Disease, CAD Under 55 Years Old, Diabetes, GI Disease, Hypertension Family Medial History: Cancer 03 MOTHER 09 BROTHER GRANDMOTHER Family history: Arthritis 03 MOTHER Family history: Breast disease 03 MOTHER Family history: Cardiovascular disease 03 MOTHER Family history: Diabetes mellitus 03 MOTHER 09 BROTHER GRANDMOTHER Physical Exam Vital Signs VS - Last 72 Hours, by Label 01/27/17 01/27/17 01/27/17 14:53 15:15 16:25 Temp 98.1 98.1 98.1 Pulse 115 Resp 20 B/P 146/98 Pulse Ox 98 O2 Delivery Room Air Capillary Refill : General Appearance: WD/WN no apparent distress HEENT: PERRL/EOMI normal ENT inspection Neck: non-tender full range of motion Respiratory: no respiratory distress no accessory muscle use Cardiovascular: regular rate, rhythm no murmur Gastrointestinal: normal bowel sounds soft tenderness Extremities: normal range of motion non-tender Neurologic/Psychiatric: alert normal mood/affect oriented x 3 Skin: normal color warm/dry Progress/Results/Core Measures Results/Orders Lab Results Laboratory Tests Test 01/27/17 15:00 01/27/17 15:03 01/27/17 15:50 01/27/17 15:55 Range/Units Alanine Aminotransferase (ALT/SGPT) < 60 H 0-55 U/L Albumin 4.0 3.2-4.5 G/DL Alkaline Phosphatase < 50 40-136 U/L Amylase Level 48 25-125 U/L Anion Gap -17 L 5-14 MMOL/L Aspartate Amino Transf (AST/SGOT) < 30 5-34 U/L BUN/Creatinine Ratio 10 Band Neutrophils 2 % Basophils # (Auto) 0.0 0.0-0.1 10^3/uL Basophils % (Manual) 0 % Basophils (%) (Auto) 0 0-10 % Blood Morphology Comment NORMAL Blood Urea Nitrogen < 20 H 7-18 MG/DL Calcium Level 9.3 8.5-10.1 MG/DL Carbon Dioxide Level < 50 *H 21-32 MMOL/L Chloride Level 88 L 98-107 MMOL/L Cholesterol Level 1152 H < 200 MG/DL Creatinine < 2.00 H 0.60-1.30 MG/DL Eosinophils # (Auto) 0.0 0.0-0.3 10^3/uL Eosinophils % (Manual) 0 % Eosinophils (%) (Auto) 0 0-10 % Estimat Glomerular Filtration Rate 28 Glucose Level 361 H 70-105 MG/DL HDL Cholesterol 21 L 40-60 MG/DL Hematocrit 32 L 35-52 % Hemoglobin 14.1 11.5-16.0 G/DL LDL Cholesterol Direct 261 H 1-129 MG/DL Lipase 110 H 8-78 U/L Lymphocytes # (Auto) 0.7 L 1.0-4.0 X 10^3 Lymphocytes % (Manual) 22 % Lymphocytes (%) (Auto) 9 L 12-44 % Mean Corpuscular Hemoglobin 36 H 25-34 PG Mean Corpuscular Hemoglobin Concent 44 H 32-36 G/DL Mean Corpuscular Volume 81 80-99 FL Mean Platelet Volume 11.2 H 7.4-10.4 FL Monocytes # (Auto) 1.7 H 0.0-1.0 X 10^3 Monocytes % (Manual) 2 % Monocytes (%) (Auto) 22 H 0-12 % Neutrophils # (Auto) 5.2 1.8-7.8 X 10^3 Neutrophils % (Manual) 74 % Neutrophils (%) (Auto) 69 42-75 % Platelet Count 208 130-400 10^3/uL Potassium Level 3.7 3.6-5.0 MMOL/L Red Blood Count 3.92 L 4.35-5.85 10^6/uL Red Cell Distribution Width 14.9 H 10.0-14.5 % Sodium Level 121 *L 135-145 MMOL/L Total Bilirubin 0.2 0.1-1.0 MG/DL Total Protein 14.2 H 6.4-8.2 G/DL Triglycerides Level 9346 H <150 MG/DL VLDL Cholesterol 1869 H 5-40 MG/DL White Blood Count 7.6 4.3-11.0 10^3/uL Glucometer 398 H 70-110 MG/DL Urine Bacteria NONE /HPF Urine Bilirubin NEGATIVE NEGATIVE Urine Casts NONE /LPF Urine Clarity CLEAR Urine Color YELLOW Urine Crystals NONE /LPF Urine Culture Indicated NO Urine Glucose (UA) 4+ H NEGATIVE Urine Ketones 3+ H NEGATIVE Urine Leukocyte Esterase 1+ H NEGATIVE Urine Mucus NEGATIVE /LPF Urine Nitrite NEGATIVE NEGATIVE Urine Protein 3+ H NEGATIVE Urine RBC 2-5 H /HPF Urine RBC (Auto) 3+ H NEGATIVE Urine Specific [place] 1.010 L 1.016-1.022 Urine Squamous Epithelial Cells 10-25 H /HPF Urine Urobilinogen NORMAL NORMAL MG/DL Urine WBC 0-2 /HPF Urine pH 6 5-9 Urine Test NEGATIVE NEGATIVE My Orders Orders-COURTNEY NUÑEZ APRN Accucheck Stat ONCE (01/27/17 14:57) Ondansetron Injection (Zofran Injectio (01/27/17 15:00) Fentanyl Injection (Sublimaze Injection (01/27/17 15:00) Ns Iv 1000 Ml (Sodium Chloride 0.9%) (01/27/17 15:00) Hcg,Qualitative Urine (01/27/17 15:57) Fentanyl Injection (Sublimaze Injection (01/27/17 16:15) Insulin (Regular) Human (Humulin R (Per (01/27/17 16:30) Medications Given in ED Current Medications Medications Dose Ordered Sig/Faheem Route Start Time Stop Time Status Last Admin Dose Admin Fentanyl Citrate 50 mcg ONCE ONCE IVP 01/27/17 15:00 01/27/17 15:01 DC 01/27/17 15:15 50 MCG Fentanyl Citrate 50 mcg ONCE ONCE IVP 01/27/17 16:15 01/27/17 16:16 DC 01/27/17 16:25 50 MCG Ondansetron HCl 4 mg ONCE ONCE IVP 01/27/17 15:00 01/27/17 15:01 DC 01/27/17 15:15 4 MG Vital Signs/I&O Vital Sign - Last 12Hours 01/27/17 01/27/17 01/27/17 14:53 15:15 16:25 Temp 98.1 98.1 98.1 Pulse 115 Resp 20 B/P 146/98 Pulse Ox 98 O2 Delivery Room Air Departure Communication Time/Spoke to Admitting Phy: 16:34 Communication Discussed the case with Dr. Zheng. We will admit for subcutaneous insulin, IV fluids, clear liquids, pain control. Impression Impression: Primary Impression: Acute pancreatitis Additional Impressions: pseudohyponatremia Diabetes mellitus Disposition: ADMITTED INPATIENT Condition: Stable Decision to Admit Reason: Admit from ER (General) Departure-Patient Inst. Referrals: MC ROSS MD (PCP/Family) Primary Care Physician COURTNEY NUÑEZ APRN Jan 27, 2017 15:01
[2017-01-27 15:12] LABS: BASOPHILS % (AUTO) 0 % (0-10); EOSINOPHILS % (AUTO) 0 % (0-10); LYMPHOCYTES # (AUTO) 0.7 X 10^3 (1.0-4.0); LYMPHOCYTES % (AUTO) 9 % (12-44); MEAN CORPUSCULAR HEMOGLOBIN 36 PG (25-34); MEAN CORPUSCULAR HGB CONC 44 G/DL (32-36); MEAN CORPUSCULAR VOLUME 81 FL (80-99); MEAN PLATELET VOLUME 11.2 FL (7.4-10.4); MONOCYTES # (AUTO) 1.7 X 10^3 (0.0-1.0); MONOCYTES % (AUTO) 22 % (0-12); NEUTROPHILS # (AUTO) 5.2 X 10^3 (1.8-7.8); NEUTROPHILS % (AUTO) 69 % (42-75); PLATELET COUNT 208 10^3/uL (130-400); RED BLOOD COUNT 3.92 10^6/uL (4.35-5.85); RED CELL DISTRIBUTION WIDTH 14.9 % (10.0-14.5); WHITE BLOOD COUNT 7.6 10^3/uL (4.3-11.0)
[2017-01-27 15:28] LABS: BAND NEUTROPHILS 2 %; BASOPHILS % (MANUAL) 0 %; EOSINOPHILS % (MANUAL) 0 %; LYMPHOCYTES % (MANUAL) 22 %; NEUTROPHILS % (MANUAL) 74 %
[2017-01-27 15:45] LABS: AMYLASE 48 U/L (25-125); BILIRUBIN,TOTAL 0.2 MG/DL (0.1-1.0); CALCIUM 9.3 MG/DL (8.5-10.1); CHLORIDE 88 MMOL/L (98-107); CHOLESTEROL 1152 MG/DL (< 200); DIRECT LDL 261 MG/DL (1-129); LIPASE 110 U/L (8-78); POTASSIUM 3.7 MMOL/L (3.6-5.0); TOTAL PROTEIN 14.2 G/DL (6.4-8.2)
[2017-01-27 16:12] LABS: BILIRUBIN,URINE NEGATIVE (NEGATIVE); KETONES,URINE 3+ (NEGATIVE); LEUKOCYTE ESTERASE ,URINE 1+ (NEGATIVE); NITRITE,URINE NEGATIVE (NEGATIVE); PH,URINE 6 (5-9); PROTEIN,URINE 3+ (NEGATIVE); UROBILINOGEN,URINE NORMAL (NORMAL)
[2017-01-27 16:18] LABS: WBC,URINE 0-2 /HPF
[2017-01-27 16:21] LABS: SODIUM 121 MMOL/L (135-145)
[2017-01-27 16:22] LABS: ALANINE AMINOTRANSFERASE < 60 U/L (0-55); ASPARTATE AMINO TRANSFERASE < 30 U/L (5-34); BLOOD UREA NITROGEN < 20 MG/DL (7-18); BUN/CREATININE RATIO 10; CREATININE SERUM < 2.00 MG/DL (0.60-1.30); GFR ESTIMATED 28; GLUCOSE 361 MG/DL (70-105)
--- OUTSIDE RECORDS SUMMARY | 2017-01-27 16:25 | XMS REPORT | Continuity of Care Document ---
Author Author [facility] Organization [facility] Address Unknown Phone Unavailable Care Team Providers Care Boiler Assistant Operator Name Role Phone PCP Unavailable Source Comments Some departments are not documenting in the electronic medical record. If you do not see the information that you expected, contact Release of Information in the Health Information Management department at [phone] for further assistance in locating additional records.[facility] Active Allergies and Adverse Reactions Not on [...]
[2017-01-27 16:28] LABS: ANION GAP -17 MMOL/L (5-14); CARBON DIOXIDE < 50 MMOL/L (21-32); TRIGLYCERIDES 9346 MG/DL (<150); VLDL CHOLESTEROL 1869 MG/DL (5-40)
[2017-01-27] MEDS ORDERED: inSUlin (REGULAR) HUMAN 1 UNIT/0.01 ML (CHARGE PER UNIT) IV ONE (16:30)
[2017-01-27 19:00] VITALS: BP 131/90
[2017-01-27] MEDS: NS IV 1000 ML 1,000 ML IV SCH (19:29)
[2017-01-27] MEDS: fentaNYL INJECTION 100 MCG/2 ML AMP IV PRN ×3 (19:29→23:47)
[2017-01-27] MEDS ORDERED: CATHETER FLUSH 10 ML SYR IV PRN (19:30)
[2017-01-27] MEDS: inSUlin (REGULAR) HUMAN 1 UNIT/0.01 ML (CHARGE PER UNIT) SC SCH (21:15)
[2017-01-27] MEDS: ONDANSETRON 4 MG/2 ML (SDV) Z0FRAN IV PRN (22:37)
[2017-01-28] VITALS: BP 130/85
[2017-01-28] MEDS: fentaNYL INJECTION 100 MCG/2 ML AMP IV PRN ×4 (01:53→08:40)
[2017-01-28] MEDS: NS IV 1000 ML 1,000 ML IV SCH ×4 (01:53→21:08)
[2017-01-28 04:00] VITALS: BP 132/89
[2017-01-28 05:19] LABS: BASOPHILS % (AUTO) 0 % (0-10); EOSINOPHILS # (AUTO) 0.1 10^3/uL (0.0-0.3); EOSINOPHILS % (AUTO) 1 % (0-10); LYMPHOCYTES # (AUTO) 0.8 X 10^3 (1.0-4.0); LYMPHOCYTES % (AUTO) 12 % (12-44); MEAN CORPUSCULAR HEMOGLOBIN 35 PG (25-34); MEAN CORPUSCULAR HGB CONC 42 G/DL (32-36); MEAN CORPUSCULAR VOLUME 82 FL (80-99); MONOCYTES # (AUTO) 1.7 X 10^3 (0.0-1.0); MONOCYTES % (AUTO) 26 % (0-12); NEUTROPHILS % (AUTO) 61 % (42-75); PLATELET COUNT 187 10^3/uL (130-400); RED BLOOD COUNT 3.55 10^6/uL (4.35-5.85); RED CELL DISTRIBUTION WIDTH 15.2 % (10.0-14.5); WHITE BLOOD COUNT 6.6 10^3/uL (4.3-11.0)
[2017-01-28 05:44] LABS: ALBUMIN 3.5 G/DL (3.2-4.5); ANION GAP 19 MMOL/L (5-14); BILIRUBIN,TOTAL < 0.1 MG/DL (0.1-1.0); CALCIUM 8.5 MG/DL (8.5-10.1); CHLORIDE 96 MMOL/L (98-107); CREATININE SERUM 0.68 MG/DL (0.60-1.30); GFR ESTIMATED > 60; GLUCOSE 210 MG/DL (70-105); LIPASE 284 U/L (8-78); POTASSIUM 3.5 MMOL/L (3.6-5.0); TOTAL PROTEIN 11.6 G/DL (6.4-8.2)
[2017-01-28] MEDS: inSUlin (REGULAR) HUMAN 1 UNIT/0.01 ML (CHARGE PER UNIT) SC SCH ×2 (05:57→11:14)
[2017-01-28 06:16] LABS: SODIUM 125 MMOL/L (135-145)
[2017-01-28 06:17] LABS: ASPARTATE AMINO TRANSFERASE 30 U/L (5-34); BLOOD UREA NITROGEN < 2 MG/DL (7-18); BUN/CREATININE RATIO 3; CARBON DIOXIDE < 10 MMOL/L (21-32)
[2017-01-28 06:18] LABS: ALANINE AMINOTRANSFERASE < 6 U/L (0-55)
[2017-01-28 08:19] VITALS: BP 122/69
[2017-01-28] MEDS ORDERED: INSU100I14 SQ (08:45)
[2017-01-28] MEDS ORDERED: INSU100I29 SQ (08:45)
[2017-01-28] MEDS ORDERED: fentaNYL INJECTION 100 MCG/2 ML AMP IVP PRN (11:15)
--- NOTE | 2017-01-28 11:40 | History & Physicial (CHS) ---
HPI History of Present Illness: 36 yo F that presents with abdominal pain and N/V with a known history of chronic pancreatitis and severely uncontrolled diabetes. Patient has had multiple admissions this year for similar symptoms. Her labs show that her triglyceride and lipase levels are higher then they have been in a long time. She states that she ran out of her insulin on Thursday and had not yet called the clinic to get refills. She missed her last hospital followup appointment in Dec. Patient is having increasing epigastric pain. She has decreased appetite. Denies any vomiting but is having nausea. Source: patient, RN/MD, old records Exam Limitations: no limitations Date seen by provider: Jan 28, 2017 Attending Physician Flory Zheng MD PCP Aguila Ross MD Consult Date of Admission Jan 27, 2017 at 16:37 Home Medications Home Medications Reviewed patient Home Medication Reconciliation Form Allergies Coded Allergies: hydromorphone (Unverified Allergy, Intermediate, PT HAS TAKEN LORTAB & OXYCODONE IN THE PAST, 01/28/17) Itching CXJ-Lrhugt-Cmdllj Hx Patient Social History Living Status: Living alone Alcohol Use: Occasionally Uses Recreational Drug Use: No Smoking Status: Never a Smoker Recent Foreign Travel: No Contact w/other who traveled: No Recent Hopitalizations: No Recent Infectious Disease Expo: No Physical Abuse Screen: No Sexual Abuse: No Immunizations Up To Date Tetanus Booster (TDap): Unknown Date of Pneumonia Vaccine: Oct 21, 2013 Date of Influenza Vaccine: Aug 30, 2016 Past Medical History Past Medical History 1. 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 Acute on Chronic Pancreatitis (admitted >10 times ) 3. HTG- suggestive of familial hypertriglyceridemia- requires IV insulin drip with NPO during admisison to decrease with non-compliance with medications and diet 4. Poly Cystic Ovarian Syndrome 5. Iron Deficiency Anemia 6. Vit B12 Deficiency 7. Anemia requiring transfusions 8. Pseudohyponatremia due to severe hypertriglyceridemia. 9. Non-compliance with medicaitons and diet Past Surgical History 1. Tubal Ligation Family Medical History Significant Family History: Heart Disease, CAD Under 55 Years Old, Diabetes, GI Disease, Hypertension Family History: Cancer 03 MOTHER 09 BROTHER GRANDMOTHER Family history: Arthritis 03 MOTHER Family history: Breast disease 03 MOTHER Family history: Cardiovascular disease 03 MOTHER Family history: Diabetes mellitus 03 MOTHER 09 BROTHER GRANDMOTHER Review of Systems (CHC) Constitutional: No chills, No fever, malaise Respiratory: no symptoms reportedNo cough, No dyspnea on exertion, No hemoptysis, No short of breath Cardiovascular: no symptoms reportedNo chest pain, No edema, No palpitations Gastrointestinal: abdominal pain (epigastric pain)No hematemesis, nauseaNo vomiting Genitourinary: No dysuria, frequencyNo hematuria : No Musculoskeletal: no symptoms reported Skin: no symptoms reported Psychiatric/Neurological: No Symptoms Reported Reviewed Test Results Reviewed Test Results Lab Laboratory Tests Test 01/27/17 15:00 01/27/17 15:03 01/27/17 15:50 01/27/17 15:55 Range/Units Alanine Aminotransferase (ALT/SGPT) < 60 H 0-55 U/L Albumin 4.0 3.2-4.5 G/DL Alkaline Phosphatase < 50 40-136 U/L Amylase Level 48 25-125 U/L Anion Gap -17 L 5-14 MMOL/L Aspartate Amino Transf (AST/SGOT) < 30 5-34 U/L BUN/Creatinine Ratio 10 Band Neutrophils 2 % Basophils # (Auto) 0.0 0.0-0.1 10^3/uL Basophils % (Manual) 0 % Basophils (%) (Auto) 0 0-10 % Blood Morphology Comment NORMAL Blood Urea Nitrogen < 20 H 7-18 MG/DL Calcium Level 9.3 8.5-10.1 MG/DL Carbon Dioxide Level < 50 *H 21-32 MMOL/L Chloride Level 88 L 98-107 MMOL/L Cholesterol Level 1152 H < 200 MG/DL Creatinine < 2.00 H 0.60-1.30 MG/DL Eosinophils # (Auto) 0.0 0.0-0.3 10^3/uL Eosinophils % (Manual) 0 % Eosinophils (%) (Auto) 0 0-10 % Estimat Glomerular Filtration Rate 28 Glucose Level 361 H 70-105 MG/DL HDL Cholesterol 21 L 40-60 MG/DL Hematocrit 32 L 35-52 % Hemoglobin 14.1 11.5-16.0 G/DL LDL Cholesterol Direct 261 H 1-129 MG/DL Lipase 110 H 8-78 U/L Lymphocytes # (Auto) 0.7 L 1.0-4.0 X 10^3 Lymphocytes % (Manual) 22 % Lymphocytes (%) (Auto) 9 L 12-44 % Mean Corpuscular Hemoglobin 36 H 25-34 PG Mean Corpuscular Hemoglobin Concent 44 H 32-36 G/DL Mean Corpuscular Volume 81 80-99 FL Mean Platelet Volume 11.2 H 7.4-10.4 FL Monocytes # (Auto) 1.7 H 0.0-1.0 X 10^3 Monocytes % (Manual) 2 % Monocytes (%) (Auto) 22 H 0-12 % Neutrophils # (Auto) 5.2 1.8-7.8 X 10^3 Neutrophils % (Manual) 74 % Neutrophils (%) (Auto) 69 42-75 % Platelet Count 208 130-400 10^3/uL Potassium Level 3.7 3.6-5.0 MMOL/L Red Blood Count 3.92 L 4.35-5.85 10^6/uL Red Cell Distribution Width 14.9 H 10.0-14.5 % Sodium Level 121 *L 135-145 MMOL/L Total Bilirubin 0.2 0.1-1.0 MG/DL Total Protein 14.2 H 6.4-8.2 G/DL Triglycerides Level 9346 H <150 MG/DL VLDL Cholesterol 1869 H 5-40 MG/DL White Blood Count 7.6 4.3-11.0 10^3/uL Glucometer 398 H 70-110 MG/DL Urine Bacteria NONE /HPF Urine Bilirubin NEGATIVE NEGATIVE Urine Casts NONE /LPF Urine Clarity CLEAR Urine Color YELLOW Urine Crystals NONE /LPF Urine Culture Indicated NO Urine Glucose (UA) 4+ H NEGATIVE Urine Ketones 3+ H NEGATIVE Urine Leukocyte Esterase 1+ H NEGATIVE Urine Mucus NEGATIVE /LPF Urine Nitrite NEGATIVE NEGATIVE Urine Protein 3+ H NEGATIVE Urine RBC 2-5 H /HPF Urine RBC (Auto) 3+ H NEGATIVE Urine Specific [place] 1.010 L 1.016-1.022 Urine Squamous Epithelial Cells 10-25 H /HPF Urine Urobilinogen NORMAL NORMAL MG/DL Urine WBC 0-2 /HPF Urine pH 6 5-9 Urine Test NEGATIVE NEGATIVE Test 01/27/17 20:46 01/28/17 04:55 01/28/17 05:19 01/28/17 10:38 Range/Units Glucometer 258 H 265 H 199 H 70-110 MG/DL Alanine Aminotransferase (ALT/SGPT) < 6 0-55 U/L Albumin 3.5 3.2-4.5 G/DL Alkaline Phosphatase 35 L 40-136 U/L Anion Gap 19 H 5-14 MMOL/L Aspartate Amino Transf (AST/SGOT) 30 5-34 U/L BUN/Creatinine Ratio 3 Basophils # (Auto) 0.0 0.0-0.1 10^3/uL Basophils (%) (Auto) 0 0-10 % Blood Urea Nitrogen < 2 L 7-18 MG/DL Calcium Level 8.5 8.5-10.1 MG/DL Carbon Dioxide Level < 10 *L 21-32 MMOL/L Chloride Level 96 L 98-107 MMOL/L Creatinine 0.68 0.60-1.30 MG/DL Eosinophils # (Auto) 0.1 0.0-0.3 10^3/uL Eosinophils (%) (Auto) 1 0-10 % Estimat Glomerular Filtration Rate > 60 Glucose Level 210 H 70-105 MG/DL Hematocrit 29 L 35-52 % Hemoglobin 12.3 11.5-16.0 G/DL Lipase 284 H 8-78 U/L Lymphocytes # (Auto) 0.8 L 1.0-4.0 X 10^3 Lymphocytes (%) (Auto) 12 12-44 % Mean Corpuscular Hemoglobin 35 H 25-34 PG Mean Corpuscular Hemoglobin Concent 42 H 32-36 G/DL Mean Corpuscular Volume 82 80-99 FL Mean Platelet Volume 11.0 H 7.4-10.4 FL Monocytes # (Auto) 1.7 H 0.0-1.0 X 10^3 Monocytes (%) (Auto) 26 H 0-12 % Neutrophils # (Auto) 4.0 1.8-7.8 X 10^3 Neutrophils (%) (Auto) 61 42-75 % Platelet Count 187 130-400 10^3/uL Potassium Level 3.5 L 3.6-5.0 MMOL/L Red Blood Count 3.55 L 4.35-5.85 10^6/uL Red Cell Distribution Width 15.2 H 10.0-14.5 % Sodium Level 125 *L 135-145 MMOL/L Total Bilirubin < 0.1 L 0.1-1.0 MG/DL Total Protein 11.6 H 6.4-8.2 G/DL White Blood Count 6.6 4.3-11.0 10^3/uL Physical Exam-(CHC) Physical Exam Vital Signs VS - Last 72 Hours, by Label 01/27/17 01/27/17 01/27/17 01/27/17 14:53 15:15 16:25 18:48 Temp 98.1 98.1 98.1 98.1 Pulse 115 90 Resp 20 18 B/P 146/98 Pulse Ox 98 98 O2 Delivery Room Air 01/27/17 01/27/17 01/28/17 01/28/17 19:00 19:00 00:00 04:00 Temp 98.5 97.1 98.0 Pulse 104 99 93 Resp 18 20 20 B/P 131/90 130/85 132/89 Pulse Ox 97 96 95 O2 Delivery Room Air Room Air Room Air Room Air 01/28/17 01/28/17 08:19 12:26 Temp 98.3 96.8 Pulse 98 105 Resp 12 20 B/P 122/69 132/80 Pulse Ox 95 97 O2 Delivery Room Air Room Air Capillary Refill : Less Than 3 Seconds General Appearance: WD/WN no apparent distress HEENT: PERRL/EOMI Neck: non-tender full range of motion supple normal inspection Respiratory: chest non-tender lungs clear normal breath sounds no respiratory distress no accessory muscle use Cardiovascular: normal peripheral pulses regular rate, rhythm no edema no gallop no JVD no murmur Gastrointestinal: normal bowel sounds soft no organomegaly tenderness ( epigastric pain) Extremities: normal range of motion non-tender normal inspection no pedal edema no calf tenderness Neurologic/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 no motor/sensory deficits alert normal mood/affect oriented x 3 Skin: normal color warm/dry Lymphatic: no adenopathy Assessment/Plan Assessment/Plan Plan 36 yo with known chronic pancreatitis and uncontrolled IDDM Plan Acute Pancreatitis on Chronic - CLD with IV fluid hydration, Will advance as tolerated - Change to PO pain controlled with IV for breakthrough - Discussed the importance of taking her medication for her cholesterol, She would like to think about it Uncontrolled Type II IDDM - Patient ran out of insulin and did not call to get refill - Started patient on home insulin - Accuchecks AC/HS Hypertriglyceridemia - Discussed importance of restarting cholesterol medication, Patient states that she was trying to improve it with diet, discussed with patient that her elevated TG is likely due to familial problem and likely will not improve to goal with diet alone FEN: CLD advance as tolerated DVT PPX: Lovenox Dispo: Admit to Med Surg, plan to discharge home tomorrow if labs improve Diagnosis/Problems: Clinical Quality Measures DVT/VTE Risk/Contraindication: RFS Level Per Nursing on Admit: 1=Low/No VTE PPX Copy Copies To 1: AGUILA ROSS MD, HOLLY R MD Jan 28, 2017 11:40
[2017-01-28] MEDS ORDERED: inSUlin ASPART (NovoLOG) 1 UNIT/0.01 ML (CHARGE PER UNIT) SC SCH (11:45)
[2017-01-28 12:26] VITALS: BP 132/80
[2017-01-28] MEDS: oxyCODONE/APAP 5/325MG (PERCOCET 5) TABLET PO PRN ×2 (12:29→18:49)
[2017-01-28] MEDS: ENOXAPARIN 40 MG/0.4 ML (LOVENOX) SYR SC SCH (12:29)
[2017-01-28 16:00] VITALS: BP 126/78
[2017-01-28] MEDS: inSUlin ASPART (NovoLOG) 1 UNIT/0.01 ML (CHARGE PER UNIT) SC SCH ×2 (16:43→21:08)
[2017-01-28 20:00] VITALS: BP 130/84
[2017-01-28] MEDS ORDERED: inSUlin DETERMIR 1 UNIT/0.01 ML (LEVEMIR) CHARGE PER UNIT SQ SCH (21:00)
[2017-01-28] MEDS: inSUlin DETERMIR 1 UNIT/0.01 ML (LEVEMIR) CHARGE PER UNIT SQ SCH (21:08)
[2017-01-29] VITALS: BP 135/86
[2017-01-29] MEDS: oxyCODONE/APAP 5/325MG (PERCOCET 5) TABLET PO PRN ×5 (00:52→20:58)
[2017-01-29 04:00] VITALS: BP 120/78
[2017-01-29] MEDS: inSUlin ASPART (NovoLOG) 1 UNIT/0.01 ML (CHARGE PER UNIT) SC SCH ×4 (05:10→20:59)
[2017-01-29] MEDS: NS IV 1000 ML 1,000 ML IV SCH ×3 (05:10→17:28)
[2017-01-29] MEDS: ONDANSETRON 4 MG/2 ML (SDV) Z0FRAN IV PRN ×2 (05:53→13:41)
[2017-01-29 07:26] LABS: ALBUMIN 3.2 G/DL (3.2-4.5); BILIRUBIN,TOTAL 0.2 MG/DL (0.1-1.0); BLOOD UREA NITROGEN 2 MG/DL (7-18); BUN/CREATININE RATIO 4; CALCIUM 8.2 MG/DL (8.5-10.1); CHLORIDE 101 MMOL/L (98-107); CHOLESTEROL 769 MG/DL (< 200); CREATININE SERUM 0.52 MG/DL (0.60-1.30); DIRECT LDL 50 MG/DL (1-129); GFR ESTIMATED > 60; GLUCOSE 167 MG/DL (70-105); POTASSIUM 4.1 MMOL/L (3.6-5.0); SODIUM 131 MMOL/L (135-145)
[2017-01-29 07:27] LABS: ANION GAP 24 MMOL/L (5-14)
[2017-01-29 07:28] LABS: CARBON DIOXIDE 6 MMOL/L (21-32)
[2017-01-29 07:30] LABS: BASOPHILS % (AUTO) 0 % (0-10); EOSINOPHILS # (AUTO) 0.1 10^3/uL (0.0-0.3); EOSINOPHILS % (AUTO) 2 % (0-10); LYMPHOCYTES # (AUTO) 1.3 X 10^3 (1.0-4.0); LYMPHOCYTES % (AUTO) 33 % (12-44); MEAN CORPUSCULAR HEMOGLOBIN 26 PG (25-34); MEAN CORPUSCULAR HGB CONC 31 G/DL (32-36); MEAN CORPUSCULAR VOLUME 83 FL (80-99); MEAN PLATELET VOLUME 11.3 FL (7.4-10.4); MONOCYTES # (AUTO) 0.3 X 10^3 (0.0-1.0); MONOCYTES % (AUTO) 8 % (0-12); NEUTROPHILS # (AUTO) 2.2 X 10^3 (1.8-7.8); NEUTROPHILS % (AUTO) 57 % (42-75); PLATELET COUNT 137 10^3/uL (130-400); RED BLOOD COUNT 2.99 10^6/uL (4.35-5.85); RED CELL DISTRIBUTION WIDTH 15.4 % (10.0-14.5); WHITE BLOOD COUNT 3.9 10^3/uL (4.3-11.0)
[2017-01-29 07:51] LABS: ALANINE AMINOTRANSFERASE 12 U/L (0-55); ASPARTATE AMINO TRANSFERASE 64 U/L (5-34); LIPASE 300 U/L (8-78); TRIGLYCERIDES 4366 MG/DL (<150); VLDL CHOLESTEROL 873 MG/DL (5-40)
[2017-01-29 08:11] VITALS: BP 105/71
[2017-01-29] MEDS: ENOXAPARIN 40 MG/0.4 ML (LOVENOX) SYR SC SCH (11:51)
--- NOTE | 2017-01-29 11:58 | Progress Note (SOAP) ---
Subjective Subjective/Events-last exam Patient states that she is feeling better this AM and would like to try and advance her diet. + BM last night. Tolerating CLD. Pain well controlled on PO medications. Ambulating without difficulty. Patient has significant drop in Hgb overnight. She denies any bleeding symptoms. Concerned that it is a lab error. Repeat is pending. Date seen by provider: Jan 29, 2017 Objective Exam Last Set of Vital Signs Vital Signs Date Time Temp Pulse Resp B/P Pulse Ox O2 Delivery O2 Flow Rate FiO2 01/29/17 08:11 97.4 80 12 105/71 96 Room Air Capillary Refill : Less Than 3 Seconds I&O Intake and Output 01/29/17 00:00 Intake Total 3190 ml Output Total 3700 ml Balance -510 ml Intake Oral 2190 ml IV Total 1000 ml Output Urine Total 3700 ml General: Alert, Oriented X3, Cooperative, No Acute Distress Lungs: Clear to Auscultation, Normal Air Movement Heart: Regular Rate, Normal S1, Normal S2, No Murmurs Abdomen: Normal Bowel Sounds, Soft, No Hepatosplenomegaly, No Masses, Other ( mild ttp in epigastric region, improving) Extremities: No Clubbing, No Edema, No Tenderness/Swelling Skin: No Rashes, No Breakdown Neuro: Normal Speech, Strength at 5/5 X4 Ext, Cranial Nerves 3-12 NL Psych/Mental Status: Mental Status NL, Mood NL Results/Procedures Lab Laboratory Tests 01/28/17 16:22: Glucometer 256H 01/28/17 20:41: Glucometer 214H 01/29/17 05:00: Glucometer 156H 01/29/17 06:40: Alanine Aminotransferase (ALT/SGPT) 12, Albumin 3.2, Alkaline Phosphatase 33L, Anion Gap 24H, Aspartate Amino Transf (AST/SGOT) 64H, BUN/Creatinine Ratio 4, Blood Urea Nitrogen 2L, Calcium Level 8.2L, Carbon Dioxide Level 6*L, Chloride Level 101, Cholesterol Level 769H, Creatinine 0.52L, Estimat Glomerular Filtration Rate > 60, Glucose Level 167H, HDL Cholesterol 23L, LDL Cholesterol Direct 50, Lipase 300H, Potassium Level 4.1, Sodium Level 131L, Total Bilirubin 0.2, Total Protein 9.0H, Triglycerides Level 4366H, VLDL Cholesterol 873H 01/29/17 06:46: Basophils # (Auto) 0.0, Basophils (%) (Auto) 0, Eosinophils # (Auto) 0.1, Eosinophils (%) (Auto) 2, Hematocrit 25L, Hemoglobin 7.7#L, Lymphocytes # (Auto ) 1.3, Lymphocytes (%) (Auto) 33, Mean Corpuscular Hemoglobin 26, Mean Corpuscular Hemoglobin Concent 31L, Mean Corpuscular Volume 83, Mean Platelet Volume 11.3H, Monocytes # (Auto) 0.3, Monocytes (%) (Auto) 8, Neutrophils # ( Auto) 2.2, Neutrophils (%) (Auto) 57, Platelet Count 137, Red Blood Count 2.99L , Red Cell Distribution Width 15.4H, White Blood Count 3.9L 01/29/17 10:47: Glucometer 148H Assessment/Plan Assessment/Plan Plan 36 yo with known chronic pancreatitis and uncontrolled IDDM Plan Metabolic Acidosis: Improving - Continue IVFs and Insulin Acute Pancreatitis on Chronic - Advance diet to ADA today - Pain is controlled on PO medication - Discussed the importance of taking her medication for her cholesterol, She agrees to restart it Uncontrolled Type II IDDM - Patient ran out of insulin and did not call to get refill - Started patient on home insulin - Accuchecks AC/HS, Sugars improving Hypertriglyceridemia - Restart Statin Anemia - No signs of bleeding, repeat pending as it was a large drop DVT PPX: Lovenox Dispo: Continue admission to Med/Surg until Anion gap is closed Diagnosis/Problems: Clinical Quality Measures DVT/VTE Risk/Contraindication: RFS Level Per Nursing on Admit: 1=Low/No VTE PPX MONICA WORRELL MD Jan 29, 2017 11:58
[2017-01-29 12:30] VITALS: BP 127/84
[2017-01-29 12:31] LABS: BASOPHILS % (AUTO) 0 % (0-10); EOSINOPHILS # (AUTO) 0.1 10^3/uL (0.0-0.3); EOSINOPHILS % (AUTO) 1 % (0-10); LYMPHOCYTES # (AUTO) 0.9 X 10^3 (1.0-4.0); LYMPHOCYTES % (AUTO) 20 % (12-44); MEAN CORPUSCULAR HGB CONC 35 G/DL (32-36); MEAN CORPUSCULAR VOLUME 83 FL (80-99); MEAN PLATELET VOLUME 11.3 FL (7.4-10.4); MONOCYTES # (AUTO) 0.8 X 10^3 (0.0-1.0); MONOCYTES % (AUTO) 17 % (0-12); NEUTROPHILS # (AUTO) 2.9 X 10^3 (1.8-7.8); NEUTROPHILS % (AUTO) 61 % (42-75); PLATELET COUNT 177 10^3/uL (130-400); RED BLOOD COUNT 3.36 10^6/uL (4.35-5.85); RED CELL DISTRIBUTION WIDTH 15.6 % (10.0-14.5); WHITE BLOOD COUNT 4.7 10^3/uL (4.3-11.0)
[2017-01-29 12:32] LABS: MEAN CORPUSCULAR HEMOGLOBIN 29 PG (25-34)
[2017-01-29 16:25] VITALS: BP 136/88
[2017-01-29 19:16] VITALS: BP 138/90
[2017-01-29] MEDS: inSUlin DETERMIR 1 UNIT/0.01 ML (LEVEMIR) CHARGE PER UNIT SQ SCH (20:59)
[2017-01-30] VITALS: BP 137/89
[2017-01-30] MEDS: oxyCODONE/APAP 5/325MG (PERCOCET 5) TABLET PO PRN ×3 (02:54→14:40)
[2017-01-30 04:00] VITALS: BP 137/94
[2017-01-30] MEDS: NS IV 1000 ML 1,000 ML IV SCH (04:39)
[2017-01-30 06:46] LABS: BASOPHILS % (AUTO) 0 % (0-10); EOSINOPHILS # (AUTO) 0.1 10^3/uL (0.0-0.3); EOSINOPHILS % (AUTO) 2 % (0-10); LYMPHOCYTES # (AUTO) 1.2 X 10^3 (1.0-4.0); LYMPHOCYTES % (AUTO) 27 % (12-44); MEAN CORPUSCULAR HEMOGLOBIN 29 PG (25-34); MEAN CORPUSCULAR HGB CONC 35 G/DL (32-36); MEAN CORPUSCULAR VOLUME 83 FL (80-99); MEAN PLATELET VOLUME 11.8 FL (7.4-10.4); MONOCYTES # (AUTO) 0.8 X 10^3 (0.0-1.0); MONOCYTES % (AUTO) 17 % (0-12); NEUTROPHILS # (AUTO) 2.5 X 10^3 (1.8-7.8); NEUTROPHILS % (AUTO) 55 % (42-75); PLATELET COUNT 198 10^3/uL (130-400); RED BLOOD COUNT 3.39 10^6/uL (4.35-5.85); RED CELL DISTRIBUTION WIDTH 15.7 % (10.0-14.5); WHITE BLOOD COUNT 4.6 10^3/uL (4.3-11.0)
[2017-01-30] MEDS: inSUlin ASPART (NovoLOG) 1 UNIT/0.01 ML (CHARGE PER UNIT) SC SCH ×3 (06:48→16:39)
[2017-01-30 07:27] LABS: ALANINE AMINOTRANSFERASE 9 U/L (0-55); ALBUMIN 3.4 G/DL (3.2-4.5); ANION GAP 19 MMOL/L (5-14); ASPARTATE AMINO TRANSFERASE 26 U/L (5-34); BILIRUBIN,TOTAL 0.2 MG/DL (0.1-1.0); BLOOD UREA NITROGEN 4 MG/DL (7-18); BUN/CREATININE RATIO 7; CARBON DIOXIDE 13 MMOL/L (21-32); CHLORIDE 102 MMOL/L (98-107); CHOLESTEROL 686 MG/DL (< 200); CREATININE SERUM 0.57 MG/DL (0.60-1.30); DIRECT LDL 68 MG/DL (1-129); GFR ESTIMATED > 60; GLUCOSE 231 MG/DL (70-105); LIPASE 204 U/L (8-78); POTASSIUM 3.7 MMOL/L (3.6-5.0); SODIUM 134 MMOL/L (135-145); TOTAL PROTEIN 8.7 G/DL (6.4-8.2)
[2017-01-30 08:00] VITALS: BP 133/79
[2017-01-30 08:14] LABS: TRIGLYCERIDES 3330 MG/DL (<150); VLDL CHOLESTEROL 666 MG/DL (5-40)
[2017-01-30] MEDS ORDERED: inSUlin DETERMIR 1 UNIT/0.01 ML (LEVEMIR) CHARGE PER UNIT SQ NR (09:49)
[2017-01-30] MEDS: ENOXAPARIN 40 MG/0.4 ML (LOVENOX) SYR SC SCH (11:23)
[2017-01-30] MEDS ORDERED: INSU100I14 SQ (11:23)
[2017-01-30] MEDS ORDERED: INSU100I29 SQ (11:23)
--- NOTE | 2017-01-30 11:28 | Discharge Instructions ---
Discharge Inst-[facility] Discharge Medications New, Converted or Re-Newed RX: Other (Insulin is available at [facility] as voucher) Changed Medications: Insulin Aspart (Novolog Flexpen) 300 Units/3 Ml Solution 20 UNITS SQ AC Days 30 EA (Changed from: 45 UNITS) Insulin Detemir (Levemir Flextouch) 100 Unit/1 Ml Insuln.pen 40 UNITS SQ HS Days 30 (Changed from: 80 UNITS) Patient Instructions Goal/Follow Up Appt: You have an appointment with your PCP Dr Ross on February 05 @ 4pm Patient Instructions: - It is important that you come to clinic and get insulin prior to running out, You should call the clinic several days prior to running out - You need to stay on a strict low fat diet [facility]: - Unable to tolerate food - chest pain - Shortness of breath Activity & Diet Discharge Diet: Eat Small Frequent Meals, ADA Diet Activity as Tolerated: Yes Copy Copies To 1: MC ROSS MD, HOLLY R MD Jan 30, 2017 11:28
[2017-01-30 15:28] LABS: ANION GAP 15 MMOL/L (5-14); BLOOD UREA NITROGEN 4 MG/DL (7-18); BUN/CREATININE RATIO 7; CALCIUM 8.7 MG/DL (8.5-10.1); CARBON DIOXIDE 17 MMOL/L (21-32); CHLORIDE 103 MMOL/L (98-107); CREATININE SERUM 0.58 MG/DL (0.60-1.30); GFR ESTIMATED > 60; GLUCOSE 243 MG/DL (70-105); POTASSIUM 3.4 MMOL/L (3.6-5.0); SODIUM 135 MMOL/L (135-145)
[2017-01-30 16:00] VITALS: BP 135/94
[2017-01-30 17:30] VITALS: BP 128/88
--- NOTE | 2017-02-01 19:40 | Discharge Summary ---
Diagnosis/Chief Complaint Date of Admission Jan 27, 2017 at 16:37 Date of Discharge Jan 30, 2017 at 17:30 Admission Diagnosis Admission Diagnosis Metabolic Acidosis Acute on Chronic Pancreatitis Hypertriglyceridemia Uncontrolled Insulin Dependent DM II Anemia of Chronic disease Discharge Diagnosis same as above Chief Complaint/HPI Chief Complaint/HPI 36 yo F that presents with abdominal pain and N/V with a known history of chronic pancreatitis and severely uncontrolled diabetes. Patient has had multiple admissions this year for similar symptoms. Her labs show that her triglyceride and lipase levels are higher then they have been in a long time. She states that she ran out of her insulin on Thursday and had not yet called the clinic to get refills. She missed her last hospital followup appointment in Dec. Patient is having increasing epigastric pain. She has decreased appetite. Denies any vomiting but is having nausea. Discharge Summary-Simple/Stand Consultations none Discharge Physical Examination Allergies: Coded Allergies: hydromorphone (Unverified Allergy, Intermediate, PT HAS TAKEN LORTAB & OXYCODONE IN THE PAST, 01/28/17) Itching Vitals & I&Os Vital Sign - Last 12Hours Date Time Temp Pulse Resp B/P Pulse Ox O2 Delivery O2 Flow Rate FiO2 01/30/17 17:30 88 22 128/88 95 01/30/17 16:00 97.1 Room Air General Appearance: Alert, Oriented X3, Cooperative, No Acute Distress HEENT: Atraumatic, PERRLA, EOMI, Mucous Memb Moist/[place] Respiratory: Clear to Auscultation, Normal Air Movement Cardiovascular: Regular Rate, Normal S1, Normal S2, No Murmurs Abdominal: Normal Bowel Sounds, Soft, No Hepatosplenomegaly, No Masses, Other ( mild epigastric pain) Extremities: No Clubbing, No Cyanosis, No Edema, No Tenderness/Swelling Skin: No Rashes, No Breakdown Neuro: Normal Gait, Normal Speech, Strength at 5/5 X4 Ext, Normal Tone, Sensation Intact, Cranial Nerves 3-12 NL Psych/Mental Status: Mental Status NL, Mood NL Hospital Course See final discharge diagnosis. Pending Labs None Discussion & Recommendations 36 yo F with chronic pancreatitis and uncontrolled IDDM that presented with similar symptoms as prior admissions after running out of her insulin Metabolic Acidosis - Improved daily with IVF hydration and restarting insulin Acute on Chronic Pancreatitis - Patient placed on CLD with IV pain and antiemetics and switched to oral as tolerated. Diet was advanced and pain was well controlled. Hypertriglyceridemia - Trended down during admission. Patient had stopped Statin because she wanted to try diet and exercise. Discussed with patient that she likely has familial component because of extremely high levels and will likely need medication her whole life. She would like to discuss with her PCP. Uncontrolled Insulin Dependent DM II - Restarted home insulin when she was taking full diet. Blood sugars better controlled. Insulin was vouchered at [facility] pharmacy. Discussed the importance of her calling the clinic a week prior to running out of insulin. Patient would likely benefit from Seren[facility] Matthews DM nurse to have 1 more contact in clinic to help with management of DM. Anemia of Chronic disease - Levels stable at discharge Discharge Condition at discharge Improved Instructions to patient/family Please see electonic discharge instructions given to patient. Discharge Medications Reviewed and agree with Discharge Medication list on patient's Discharge Instruction sheet Clinical Quality Measures DVT/VTE Risk/Contraindication: RFS Level Per Nursing on Admit: 1=Low/No VTE PPX Copy Copies To 1: MC ROSS MD, HOLLY R MD Feb 01, 2017 19:40
--- NOTE | 2017-02-02 09:59 | Physician Query ---
PQ-Intro New Diagnosis Admission/Discharge Admission Date: Jan 27, 2017 at 16:37 Discharge Date: Jan 30, 2017 at 17:30 The medical record reflects the following clinical scenario: History/Risk Factors: Uncontrolled diabetes, metabolic acidosis Clinical Findings: 3+ ketones in urine, glucose 361, glucometer 398 Treatment: sliding scale insulin, IV insulin, IV fluids Question: What condition best reflects the above clinical scenario? Please document below. 1. Type 2 diabetic ketoacidosis 2. Metabolic acidosis and uncontrolled diabetes 3. Other, with explanation of the clinical findings. 4. Clinically undetermined, no explanation for the clinical findings. PHYSICIAN RESPONSE What condition reflects above: 2 Please remember a lack of response to the above will prompt a phone page by CDI/ coding staff. In responding to this query, please exercise your independent professional judgment. The purpose of this communication is to more accurately reflect the complexity of your patients condition. The fact that a question is asked does not imply that any particular answer is desired or expected. Thank you for your timely response to this clarification. Requestors name: Valeria THIS PHYSICIAN QUERY FORM IS A PERMANENT PART OF THE MEDICAL RECORD VALERIA PUCKETT Feb 02, 2017 09:59 MONICA WORRELL MD Feb 04, 2017 07:52
== END 2017-01-30 17:30 | disposition home or self-care (01) | DRG 439 ==
LOC: EDUNIT# 14:34 → ER 14:37 → UNDOADMIN 16:37 → 4TH 16:37
PROVIDERS: ADMIT Family Medicine; ATTEND Family Medicine
DX: K85.90 Acute pancreatitis without necrosis or infection, unspecified (principal); K86.1 Other chronic pancreatitis; E11.65 Type 2 diabetes mellitus with hyperglycemia; E87.1 Hypo-osmolality and hyponatremia; E87.2 Acidosis; D64.9 Anemia, unspecified; E78.1 Pure hyperglyceridemia; E28.2 Polycystic ovarian syndrome; Z91.14 Patient's other noncompliance with medication regimen; Z91.11 Patient's noncompliance with dietary regimen; Z79.4 Long term (current) use of insulin
CPT/HCPCS: 36415; 80048; 80053; 80061; 81000; 82150; 82728; 82962; 83540; 83690; 84703; 85007; 85025; 85027; 96361; 96374; 96375; 96376

== ENCOUNTER 2017-02-07 16:36 | Inpatient (IN) | payer MEDICARE ==
[~2017-02-07] VITALS: Ht 165.1 cm; Wt 74.0 kg
[~2017-02-07 16:36] MED LIST changes: +INSU100I29 SQ
--- OUTSIDE RECORDS SUMMARY | 2017-02-07 16:41 | XMS REPORT | Continuity of Care Document ---
Author Author [facility] Organization [facility] Address Unknown Phone Unavailable Care Team Providers Care Braze Operator Name Role Phone PCP Unavailable Source Comments Some departments are not documenting in the electronic medical record. If you do not see the information that you expected, contact Release of Information in the Health Information Management department at [phone] for further assistance in locating additional records.[facility] Active Allergies and Adverse Reactions Not [...]
--- NOTE | 2017-02-07 17:25 | ED Abdominal Pain ---
General Chief Complaint: Abdominal/GI Problems Stated Complaint: VOMITING, STOMACH PAIN Source of Information: Patient Exam Limitations: No Limitations History of Present Illness Time Seen By Provider: 17:25 Initial Comments To ER with vomiting and epigastric abdominal pain that began this morning. She was released from the hospital on April 01 following a bout of pancreatitis secondary to hypertriglyceridemia Timing/Duration: 4-6 Hours Severity/Quality: Severe Location: Epigastric, Periumbilical Radiation: No Radiation Activities at Onset: None Associated Symptoms: Nausea/Vomiting Allergies and Home Medications Allergies Coded Allergies: hydromorphone (Unverified Allergy, Intermediate, PT HAS TAKEN LORTAB & OXYCODONE IN THE PAST, 01/28/17) Itching Home Medications Insulin Aspart 300 Units/3 Ml Solution 30Days 20 UNITS SQ AC Prescribed by: MONICA WORRELL on 01/30/17 1123 Insulin Detemir 100 Unit/1 Ml Insuln.pen 30Days 40 UNITS SQ HS Prescribed by: MONICA WORRELL on 01/30/17 1123 Review of Systems Constitutional: see HPI EENTM: No Symptoms Reported Respiratory: No Symptoms Reported Cardiovascular: No Symptoms Reported Gastrointestinal: See HPI Abdominal Pain Nausea Vomiting Genitourinary: No Symptoms Reported Musculoskeletal: no symptoms reported Skin: no symptoms reported Psychiatric/Neurological: No Symptoms Reported Endocrine: No Symptoms Reported Past [id number] Hx Patient Social History Recent Foreign Travel: No Contact w/Someone Who Travel: No Recent Hopitalizations: No Immunizations Up To Date Tetanus Booster (TDap): Unknown PED Vaccines UTD: No Date of Pneumonia Vaccine: Oct 21, 2013 Date of Influenza Vaccine: Aug 30, 2016 Seasonal Allergies Seasonal Allergies: No Surgeries HX Surgeries: Yes (DENTAL SURGERY) Surgeries: Tubal Ligation Respiratory Hx Respiratory Disorders: No Cardiovascular Hx Cardiac Disorders: Yes Cardiac Disorders: High Cholesterol Neurological Hx Neurological Disorders: No 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 System Hx 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 Disorders: No Sexually Transmitted Disease: No HIV/AIDS: No Female 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 Disorders: Denies POWDERER History: Tubal Ligation Genitourinary Hx Genitourinary Disorders: Yes Genitourinary Disorders: Bladder Infection Gastrointestinal Hx Gastrointestinal Disorders: Yes Gastrointestinal Disorders: Pancreatitis Musculoskeletal Hx Musculoskeletal Disorders: No Endocrine Hx Endocrine Disorders: Yes Endocrine Disorders: Diabetes, Insulin dep HEENT HX ENT Disorders: No Loss of Vision: Denies Hearing Impairment: Denies Cancer Hx Cancer: No Psychosocial Hx Psychiatric Problems: No Integumentary HX Skin/Integumentary Disorder: Yes (rash/warts to elbows, knees, feet) Skin/Integumentary Disorders: Recent Skin Changes Blood Transfusions Hx Blood Disorders: No Adverse Reaction to a Blood Tr: No Family Medical History Significant Family History: Heart Disease, CAD Under 55 Years Old, Diabetes, GI Disease, Hypertension Family Medial History: Cancer 03 MOTHER 09 BROTHER GRANDMOTHER Family history: Arthritis 03 MOTHER Family history: Breast disease 03 MOTHER Family history: Cardiovascular disease 03 MOTHER Family history: Diabetes mellitus 03 MOTHER 09 BROTHER GRANDMOTHER Physical Exam Vital Signs VS - Last 72 Hours, by Label 02/07/17 02/07/17 02/07/17 02/07/17 17:30 17:39 18:21 18:55 Temp 98.5 98.5 98.5 98.5 Pulse 118 Resp 18 B/P 147/110 Pulse Ox 95 O2 Delivery Room Air 02/07/17 02/07/17 02/07/17 18:55 19:55 20:09 Temp 98.5 98.5 98.5 Capillary Refill : General Appearance: WD/WN no apparent distress HEENT: PERRL/EOMI normal ENT inspection TMs normal pharynx normal Neck: non-tender full range of motion Respiratory: normal breath sounds no respiratory distress no accessory muscle use Cardiovascular: no murmur tachycardia Gastrointestinal: normal bowel sounds soft tenderness Extremities: normal range of motion non-tender Neurologic/Psychiatric: alert normal mood/affect oriented x 3 Skin: normal color warm/dry Progress/Results/Core Measures Results/Orders Lab Results Laboratory Tests Test 02/07/17 17:30 02/07/17 18:10 02/07/17 19:35 Range/Units Alanine Aminotransferase (ALT/SGPT) 0-55 U/L Albumin 4.7 H 3.2-4.5 G/DL Alkaline Phosphatase 61 40-136 U/L Amylase Level 201 H 25-125 U/L Anion Gap 32 H 5-14 MMOL/L Aspartate Amino Transf (AST/SGOT) 48 H 5-34 U/L BUN/Creatinine Ratio 12 Basophils # (Auto) 0.0 0.0-0.1 10^3/uL Basophils (%) (Auto) 0 0-10 % Blood Urea Nitrogen 10 7-18 MG/DL Calcium Level 10.5 H 8.5-10.1 MG/DL Carbon Dioxide Level < 5 *L 21-32 MMOL/L Chloride Level 90 L 98-107 MMOL/L Cholesterol Level 672 H < 200 MG/DL Creatinine 0.84 0.60-1.30 MG/DL Eosinophils # (Auto) 0.0 0.0-0.3 10^3/uL Eosinophils (%) (Auto) 0 0-10 % Estimat Glomerular Filtration Rate > 60 Glucose Level 382 H 70-105 MG/DL HDL Cholesterol 23 L 40-60 MG/DL Hematocrit 37 35-52 % Hemoglobin 14.9 11.5-16.0 G/DL LDL Cholesterol Direct 90 1-129 MG/DL Lactate Dehydrogenase 281 H 125-220 U/L Lipase 616 H 8-78 U/L Lymphocytes # (Auto) 1.1 1.0-4.0 X 10^3 Lymphocytes (%) (Auto) 11 L 12-44 % Mean Corpuscular Hemoglobin 32 25-34 PG Mean Corpuscular Hemoglobin Concent 40 H 32-36 G/DL Mean Corpuscular Volume 80 80-99 FL Mean Platelet Volume 11.1 H 7.4-10.4 FL Monocytes # (Auto) 1.4 H 0.0-1.0 X 10^3 Monocytes (%) (Auto) 13 H 0-12 % Neutrophils # (Auto) 7.9 H 1.8-7.8 X 10^3 Neutrophils (%) (Auto) 76 H 42-75 % Platelet Count 385 130-400 10^3/uL Potassium Level 4.3 3.6-5.0 MMOL/L Red Blood Count 4.63 4.35-5.85 10^6/uL Red Cell Distribution Width 15.3 H 10.0-14.5 % Sodium Level 127 L 135-145 MMOL/L Total Bilirubin < 0.1 L 0.1-1.0 MG/DL Total Protein 15.1 H 6.4-8.2 G/DL Triglycerides Level 6432 H <150 MG/DL VLDL Cholesterol 1286 H 5-40 MG/DL White Blood Count 10.4 4.3-11.0 10^3/uL Urine Bacteria NEGATIVE /HPF Urine Bilirubin NEGATIVE NEGATIVE Urine Casts NONE /LPF Urine Clarity SLIGHTLY CLOUDY Urine Color YELLOW Urine Crystals NONE /LPF Urine Culture Indicated NO Urine Glucose (UA) 4+ H NEGATIVE Urine Ketones 4+ H NEGATIVE Urine Leukocyte Esterase NEGATIVE NEGATIVE Urine Mucus NEGATIVE /LPF Urine Nitrite NEGATIVE NEGATIVE Urine Protein 4+ NEGATIVE Urine RBC RARE /HPF Urine RBC (Auto) 3+ H NEGATIVE Urine Specific [place] 1.025 H 1.016-1.022 Urine Squamous Epithelial Cells 10-25 H /HPF Urine Urobilinogen NORMAL NORMAL MG/DL Urine WBC RARE /HPF Urine Yeast FEW H /HPF Urine pH 5 5-9 Bay Test YES-POS Arterial Blood Base Excess -6.9 L -2.5-2.5 MMOL/L Arterial Blood HCO3 18 L 23-27 MMOL/L Arterial Blood Oxygen Saturation 99 94-100 % Arterial Blood Partial Pressure CO2 36 35-45 MMHG Arterial Blood Partial Pressure O2 130 H 79-93 MMHG Arterial Blood Total CO2 19.3 L 21.0-31.0 MMOL/L Arterial Blood pH 7.32 *L 7.37-7.43 Blood Gas Inspired Oxygen 2L Blood Gas Patient Temperature 97.9 Blood Gas Puncture Site RIGHT RADIAL Blood Gas Ventilator Setting NO My Orders Orders-COURTNEY NUÑEZ APRN Cbc With Automated Diff (02/07/17 17:23) Comprehensive Metabolic Panel (02/07/17 17:23) Lipase (02/07/17 17:23) Amylase (02/07/17 17:23) LDH (02/07/17 17:23) Saline Lock/Iv-Start (02/07/17 17:23) Lipid Panel (02/07/17 17:23) Lactated Ringers (Lr 1000 Ml Iv Solution (02/07/17 17:30) Fentanyl Injection (Sublimaze Injection (02/07/17 17:30) Ondansetron Injection (Zofran Injectio (02/07/17 17:30) Ua Culture If Indicated (02/07/17 18:08) Ketorolac Injection (Toradol Injection) (02/07/17 19:00) Ketorolac Injection (Toradol Injection) (02/07/17 18:52) Ns Iv 1000 Ml (Sodium Chloride 0.9%) (02/07/17 19:15) Arterial Blood Gas (02/07/17 19:38) Ct Abdomen/Pelvis W (02/07/17 19:46) Morphine Injection (Morphine Injection (02/07/17 20:00) Iohexol Injection (Omnipaque 350 Mg/Ml 1 (02/07/17 20:00) Ns (Ivpb) (Sodium Chloride 0.9% Ivpb Bag (02/07/17 20:00) Medications Given in ED Current Medications Medications Dose Ordered Sig/Faheem Route Start Time Stop Time Status Last Admin Dose Admin Fentanyl Citrate 100 mcg ONCE PRN IVP 02/07/17 17:30 02/07/17 17:39 100 MCG Ketorolac Tromethamine 30 mg ONCE ONCE IVP 02/07/17 19:00 02/07/17 19:01 DC 02/07/17 18:55 30 MG Morphine Sulfate 4 mg ONCE ONCE IVP 02/07/17 20:00 02/07/17 20:01 DC 02/07/17 19:55 4 MG Ondansetron HCl 4 mg ONCE ONCE IVP 02/07/17 17:30 02/07/17 17:31 DC 02/07/17 17:39 4 MG Vital Signs/I&O Vital Sign - Last 12Hours 02/07/17 02/07/17 02/07/17 02/07/17 17:30 17:39 18:21 18:55 Temp 98.5 98.5 98.5 98.5 Pulse 118 Resp 18 B/P 147/110 Pulse Ox 95 O2 Delivery Room Air 02/07/17 02/07/17 02/07/17 18:55 19:55 20:09 Temp 98.5 98.5 98.5 Departure Communication Time/Spoke to Admitting Phy: 20:13 Communication I discussed the case with Dr. Noriega who is on-call for replaced by [facility]. We will admit Impression Impression: Primary Impression: Acute pancreatitis Qualified Code: K85.90 - Acute pancreatitis without necrosis or infection, unspecified Disposition: ADMITTED INPATIENT Condition: Stable/Unchanged Departure-Patient Inst. Referrals: MC ROSS MD (PCP/Family) Primary Care Physician COURTNEY NUÑEZ APRN Feb 07, 2017 17:25
[2017-02-07] MEDS ORDERED: fentaNYL INJECTION 100 MCG/2 ML AMP IVP PRN (17:30)
[2017-02-07] MEDS ORDERED: ONDANSETRON 4 MG/2 ML (SDV) Z0FRAN IVP ONE (17:30)
[2017-02-07] MEDS ORDERED: LACTATED RINGERS 1,000 ML IV SCH (17:30)
[2017-02-07 17:40] LABS: BASOPHILS % (AUTO) 0 % (0-10); EOSINOPHILS % (AUTO) 0 % (0-10); LYMPHOCYTES # (AUTO) 1.1 X 10^3 (1.0-4.0); LYMPHOCYTES % (AUTO) 11 % (12-44); MEAN CORPUSCULAR HEMOGLOBIN 32 PG (25-34); MEAN CORPUSCULAR HGB CONC 40 G/DL (32-36); MEAN CORPUSCULAR VOLUME 80 FL (80-99); MEAN PLATELET VOLUME 11.1 FL (7.4-10.4); MONOCYTES # (AUTO) 1.4 X 10^3 (0.0-1.0); MONOCYTES % (AUTO) 13 % (0-12); NEUTROPHILS # (AUTO) 7.9 X 10^3 (1.8-7.8); NEUTROPHILS % (AUTO) 76 % (42-75); PLATELET COUNT 385 10^3/uL (130-400); RED BLOOD COUNT 4.63 10^6/uL (4.35-5.85); RED CELL DISTRIBUTION WIDTH 15.3 % (10.0-14.5); WHITE BLOOD COUNT 10.4 10^3/uL (4.3-11.0)
[2017-02-07 18:19] LABS: BILIRUBIN,URINE NEGATIVE (NEGATIVE); KETONES,URINE 4+ (NEGATIVE); LEUKOCYTE ESTERASE ,URINE NEGATIVE (NEGATIVE); NITRITE,URINE NEGATIVE (NEGATIVE); PH,URINE 5 (5-9); PROTEIN,URINE 4+ (NEGATIVE); UROBILINOGEN,URINE NORMAL (NORMAL)
[2017-02-07 18:19] LABS: ALBUMIN 4.7 G/DL (3.2-4.5); AMYLASE 201 U/L (25-125); BILIRUBIN,TOTAL < 0.1 MG/DL (0.1-1.0); CALCIUM 10.5 MG/DL (8.5-10.1); CHLORIDE 90 MMOL/L (98-107); CHOLESTEROL 672 MG/DL (< 200); LACTATE DEHYDROGENASE 281 U/L (125-220); LIPASE 616 U/L (8-78); POTASSIUM 4.3 MMOL/L (3.6-5.0); SODIUM 127 MMOL/L (135-145); TOTAL PROTEIN 15.1 G/DL (6.4-8.2)
[2017-02-07 18:28] LABS: WBC,URINE RARE /HPF; YEAST,URINE FEW /HPF
[2017-02-07] MEDS ORDERED: KETOROLAC 30 MG/ML VIAL ONE (18:52)
[2017-02-07] MEDS ORDERED: KETOROLAC 30 MG/ML VIAL IVP ONE (19:00)
[2017-02-07 19:12] LABS: BLOOD UREA NITROGEN 10 MG/DL (7-18); BUN/CREATININE RATIO 12; CREATININE SERUM 0.84 MG/DL (0.60-1.30); GFR ESTIMATED > 60; GLUCOSE 382 MG/DL (70-105)
[2017-02-07 19:13] LABS: DIRECT LDL 90 MG/DL (1-129)
[2017-02-07] MEDS ORDERED: NS IV 1000 ML 1,000 ML IV SCH (19:15)
[2017-02-07 19:19] LABS: ANION GAP 32 MMOL/L (5-14); ASPARTATE AMINO TRANSFERASE 48 U/L (5-34); CARBON DIOXIDE < 5 MMOL/L (21-32)
[2017-02-07 19:20] LABS: TRIGLYCERIDES 6432 MG/DL (<150); VLDL CHOLESTEROL 1286 MG/DL (5-40)
[2017-02-07 19:43] LABS: ABG BASE EXCESS -6.9 MMOL/L (-2.5-2.5); ABG HCO3 18 MMOL/L (23-27); ABG OXYGEN SATURATION 99 % (94-100); ABG PCO2 36 MMHG (35-45); ABG PO2 130 MMHG (79-93); ABG TCO2 19.3 MMOL/L (21.0-31.0)
[2017-02-07 19:48] LABS: ABG PH 7.32 (7.37-7.43); ALLENS TEST YES-POS; PATIENT TEMP 97.9
[2017-02-07] MEDS ORDERED: morphine INJ 10 MG/ML 1ML (SYR OR VIAL) IVP ONE (20:00)
[2017-02-07] MEDS ORDERED: IOHEXOL 350 MG/ML 100 ML (OMNIPAQUE 350) VIAL IV ONE (20:00)
[2017-02-07] MEDS ORDERED: NS 100 ML (IVPB) BAG IV ONE (20:00)
[2017-02-07] MEDS ORDERED: PROCHLORPERAZINE 10 MG/2ML INJ (COMPAZINE) IV ONE (20:15)
[2017-02-07] MEDS ORDERED: PROCHLORPERAZINE 10 MG/2ML INJ (COMPAZINE) ONE (20:15)
[2017-02-07] MEDS ORDERED: diphenhydrAMINE 50 MG/ML INJ (BENADRYL) ONE (20:15)
[2017-02-07] MEDS ORDERED: diphenhydrAMINE 50 MG/ML INJ (BENADRYL) IVP ONE (20:15)
--- NOTE | 2017-02-07 20:52 | Diagnostic Imaging Report ---
PROCEDURE: CT abdomen and pelvis with contrast. TECHNIQUE: Multiple contiguous axial images were obtained through the abdomen and pelvis after administration of intravenous contrast. Indication: Upper abdominal pain with vomiting. Comparison: 08/18/2016. Discussion: The visualized lung bases are well-aerated. Normal heart size. No pleural or pericardial fluid. Fatty hepatomegaly is stable. The gallbladder, stomach, and adrenal glands are unremarkable. The spleen is enlarged. Inflammatory changes are noted along the pancreatic head and body which is concerning for acute pancreatitis. Recommend clinical correlation with lipase levels. No abscess or pseudocyst formation identified at this time. The large and small bowel loops are unremarkable. No obstruction, pneumatosis, pneumoperitoneum. Follicular activity is noted within the bilateral ovaries. Uterus and urinary bladder are unremarkable. No ascites or pathologically enlarged lymph nodes identified. No acute osseous abnormality. Impression: 1. Inflammatory changes noted along the pancreatic head and body, consistent with acute pancreatitis. 2. Fatty hepatomegaly. 3. Splenomegaly. Dictated by: Dictated on workstation # [id number]
[2017-02-07] MEDS: NS IV 1000 ML 1,000 ML IV SCH (21:10)
[2017-02-07 21:20] VITALS: BP 129/79
[2017-02-07] MEDS ORDERED: ONDANSETRON 4 MG/2 ML (SDV) Z0FRAN IV PRN (22:00)
[2017-02-07] MEDS: morphine INJ 4 MG/ML 1 ML (VIAL/SYRINGE) IV PRN (23:27)
[2017-02-08] VITALS: BP 119/59
[2017-02-08] MEDS: morphine INJ 4 MG/ML 1 ML (VIAL/SYRINGE) IV PRN ×6 (03:25→21:23)
[2017-02-08 04:00] VITALS: BP 112/65
[2017-02-08 05:41] LABS: BASOPHILS % (AUTO) 0 % (0-10); EOSINOPHILS % (AUTO) 0 % (0-10); LYMPHOCYTES # (AUTO) 1.6 X 10^3 (1.0-4.0); LYMPHOCYTES % (AUTO) 14 % (12-44); MEAN CORPUSCULAR HEMOGLOBIN 29 PG (25-34); MEAN CORPUSCULAR HGB CONC 36 G/DL (32-36); MEAN CORPUSCULAR VOLUME 82 FL (80-99); MEAN PLATELET VOLUME 11.2 FL (7.4-10.4); MONOCYTES # (AUTO) 1.3 X 10^3 (0.0-1.0); MONOCYTES % (AUTO) 11 % (0-12); NEUTROPHILS # (AUTO) 8.6 X 10^3 (1.8-7.8); NEUTROPHILS % (AUTO) 75 % (42-75); PLATELET COUNT 305 10^3/uL (130-400); RED BLOOD COUNT 4.07 10^6/uL (4.35-5.85); WHITE BLOOD COUNT 11.5 10^3/uL (4.3-11.0)
[2017-02-08 06:00] LABS: ALBUMIN 3.7 G/DL (3.2-4.5); AMYLASE 200 U/L (25-125); BILIRUBIN,TOTAL < 0.1 MG/DL (0.1-1.0); BLOOD UREA NITROGEN 6 MG/DL (7-18); BUN/CREATININE RATIO 7; CALCIUM 8.7 MG/DL (8.5-10.1); CHLORIDE 101 MMOL/L (98-107); CREATININE SERUM 0.82 MG/DL (0.60-1.30); GFR ESTIMATED > 60; GLUCOSE 295 MG/DL (70-105); LIPASE 461 U/L (8-78); POTASSIUM 5.7 MMOL/L (3.6-5.0); SODIUM 132 MMOL/L (135-145); TOTAL PROTEIN 9.9 G/DL (6.4-8.2)
[2017-02-08 06:02] LABS: ANION GAP 24 MMOL/L (5-14)
[2017-02-08] MEDS: NS IV 1000 ML 1,000 ML IV SCH ×3 (06:05→17:43)
[2017-02-08] MEDS: inSUlin (REGULAR) HUMAN 1 UNIT/0.01 ML (CHARGE PER UNIT) SC SCH ×4 (06:34→21:23)
--- NOTE | 2017-02-08 07:42 | History & Physicial (CHS) ---
HPI History of Present Illness: 36-year-old female presents to [facility] emergency department during the late afternoon of February 07, 2017 with complaints of epigastric pain. Apparently the pain started up in the morning of February 07. According to records she was released from the hospital a few weeks ago secondary to pancreatitis brought on by hypertriglyceridemia. Patient admitted she was a little confused and why the triglycerides are still elevated. She reports he's been very good about avoiding any fatty foods. Source: patient Exam Limitations: clinical condition Date seen by provider: Feb 08, 2017 Attending Physician Lalito Castellanos MD PCP Mc Sandhu MD Consult Date of Admission Feb 07, 2017 at 20:21 Home Medications Home Medications Reviewed patient Home Medication Reconciliation Form Allergies Coded Allergies: hydromorphone (Unverified Allergy, Intermediate, PT HAS TAKEN LORTAB & OXYCODONE IN THE PAST, 01/28/17) Itching NYO-Hzllhg-Cccohy Hx Patient Social History Alcohol Use: Denies Use Recreational Drug Use: No Smoking Status: Never a Smoker 2nd Hand Smoke Exposure: No Recent Foreign Travel: No Contact w/other who traveled: No Recent Hopitalizations: No Recent Infectious Disease Expo: No Physical Abuse Screen: No Sexual Abuse: No Immunizations Up To Date Tetanus Booster (TDap): Unknown Date of Pneumonia Vaccine: Oct 21, 2013 Date of Influenza Vaccine: Aug 30, 2016 Past Medical History Past Medical History 1. 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 Acute on Chronic Pancreatitis (admitted >10 times ) 3. HTG- suggestive of familial hypertriglyceridemia- requires IV insulin drip with NPO during admisison to decrease with non-compliance with medications and diet 4. Poly Cystic Ovarian Syndrome 5. Iron Deficiency Anemia 6. Vit B12 Deficiency 7. Anemia requiring transfusions 8. Pseudohyponatremia due to severe hypertriglyceridemia. 9. Non-compliance with medicaitons and diet Past Surgical History 1. Tubal Ligation Family Medical History Significant Family History: Heart Disease, CAD Under 55 Years Old, Diabetes, GI Disease, Hypertension Family History: Cancer 03 MOTHER 09 BROTHER GRANDMOTHER Family history: Arthritis 03 MOTHER Family history: Breast disease 03 MOTHER Family history: Cardiovascular disease 03 MOTHER Family history: Diabetes mellitus 03 MOTHER 09 BROTHER GRANDMOTHER Review of Systems (CHC) Constitutional: see HPI Reviewed Test Results Reviewed Test Results Lab Laboratory Tests Test 02/07/17 17:30 02/07/17 18:10 02/07/17 19:35 02/08/17 05:20 Range/Units Alanine Aminotransferase (ALT/SGPT) 0-55 U/L Albumin 4.7 H 3.7 3.2-4.5 G/DL Alkaline Phosphatase 61 42 40-136 U/L Amylase Level 201 H 200 H 25-125 U/L Anion Gap 32 H 24 H 5-14 MMOL/L Aspartate Amino Transf (AST/SGOT) 48 H 5-34 U/L BUN/Creatinine Ratio 12 7 Basophils # (Auto) 0.0 0.0 0.0-0.1 10^3/uL Basophils (%) (Auto) 0 0 0-10 % Blood Urea Nitrogen 10 6 L 7-18 MG/DL Calcium Level 10.5 H 8.7 8.5-10.1 MG/DL Carbon Dioxide Level < 5 *L 21-32 MMOL/L Chloride Level 90 L 101 98-107 MMOL/L Cholesterol Level 672 H < 200 MG/DL Creatinine 0.84 0.82 0.60-1.30 MG/DL Eosinophils # (Auto) 0.0 0.0 0.0-0.3 10^3/uL Eosinophils (%) (Auto) 0 0 0-10 % Estimat Glomerular Filtration Rate > 60 > 60 Glucose Level 382 H 295 H 70-105 MG/DL HDL Cholesterol 23 L 40-60 MG/DL Hematocrit 37 33 L 35-52 % Hemoglobin 14.9 11.9 # 11.5-16.0 G/DL LDL Cholesterol Direct 90 1-129 MG/DL Lactate Dehydrogenase 281 H 125-220 U/L Lipase 616 H 461 H 8-78 U/L Lymphocytes # (Auto) 1.1 1.6 1.0-4.0 X 10^3 Lymphocytes (%) (Auto) 11 L 14 12-44 % Mean Corpuscular Hemoglobin 32 29 25-34 PG Mean Corpuscular Hemoglobin Concent 40 H 36 32-36 G/DL Mean Corpuscular Volume 80 82 80-99 FL Mean Platelet Volume 11.1 H 11.2 H 7.4-10.4 FL Monocytes # (Auto) 1.4 H 1.3 H 0.0-1.0 X 10^3 Monocytes (%) (Auto) 13 H 11 0-12 % Neutrophils # (Auto) 7.9 H 8.6 H 1.8-7.8 X 10^3 Neutrophils (%) (Auto) 76 H 75 42-75 % Platelet Count 385 305 130-400 10^3/uL Potassium Level 4.3 5.7 H 3.6-5.0 MMOL/L Red Blood Count 4.63 4.07 L 4.35-5.85 10^6/uL Red Cell Distribution Width 15.3 H 16.0 H 10.0-14.5 % Sodium Level 127 L 132 L 135-145 MMOL/L Total Bilirubin < 0.1 L < 0.1 L 0.1-1.0 MG/DL Total Protein 15.1 H 9.9 H 6.4-8.2 G/DL Triglycerides Level 6432 H <150 MG/DL VLDL Cholesterol 1286 H 5-40 MG/DL White Blood Count 10.4 11.5 H 4.3-11.0 10^3/uL Urine Bacteria NEGATIVE /HPF Urine Bilirubin NEGATIVE NEGATIVE Urine Casts NONE /LPF Urine Clarity SLIGHTLY CLOUDY Urine Color YELLOW Urine Crystals NONE /LPF Urine Culture Indicated NO Urine Glucose (UA) 4+ H NEGATIVE Urine Ketones 4+ H NEGATIVE Urine Leukocyte Esterase NEGATIVE NEGATIVE Urine Mucus NEGATIVE /LPF Urine Nitrite NEGATIVE NEGATIVE Urine Protein 4+ NEGATIVE Urine RBC RARE /HPF Urine RBC (Auto) 3+ H NEGATIVE Urine Specific [place] 1.025 H 1.016-1.022 Urine Squamous Epithelial Cells 10-25 H /HPF Urine Urobilinogen NORMAL NORMAL MG/DL Urine WBC RARE /HPF Urine Yeast FEW H /HPF Urine pH 5 5-9 Bay Test YES-POS Arterial Blood Base Excess -6.9 L -2.5-2.5 MMOL/L Arterial Blood HCO3 18 L 23-27 MMOL/L Arterial Blood Oxygen Saturation 99 94-100 % Arterial Blood Partial Pressure CO2 36 35-45 MMHG Arterial Blood Partial Pressure O2 130 H 79-93 MMHG Arterial Blood Total CO2 19.3 L 21.0-31.0 MMOL/L Arterial Blood pH 7.32 *L 7.37-7.43 Blood Gas Inspired Oxygen 2L Blood Gas Patient Temperature 97.9 Blood Gas Puncture Site RIGHT RADIAL Blood Gas Ventilator Setting NO Test 02/08/17 06:01 Range/Units Glucometer 284 H 70-110 MG/DL Radiology NAME: DEENA THOMAS MED REC#: [id number] PT STATUS: ADM IN : 1980 PHYSICIAN: COURTNEY NUÑEZ APRN ADMIT DATE: 02/07/17 Signed Date of Exam: 02/07/17 CT ABDOMEN/PELVIS W PROCEDURE: CT abdomen and pelvis with contrast. TECHNIQUE: Multiple contiguous axial images were obtained through the abdomen and pelvis after administration of intravenous contrast. Indication: Upper abdominal pain with vomiting. Comparison: 08/18/2016. Discussion: The visualized lung bases are well-aerated. Normal heart size. No pleural or pericardial fluid. Fatty hepatomegaly is stable. The gallbladder, stomach, and adrenal glands are unremarkable. The spleen is enlarged. Inflammatory changes are noted along the pancreatic head and body which is concerning for acute pancreatitis. Recommend clinical correlation with lipase levels. No abscess or pseudocyst formation identified at this time. The large and small bowel loops are unremarkable. No obstruction, pneumatosis, pneumoperitoneum. Follicular activity is noted within the bilateral ovaries. Uterus and urinary bladder are unremarkable. No ascites or pathologically enlarged lymph nodes identified. No acute osseous abnormality. Impression: 1. Inflammatory changes noted along the pancreatic head and body, consistent with acute pancreatitis. 2. Fatty hepatomegaly. 3. Splenomegaly. Dictated by: Dictated on workstation # [id number] Dict: 02/07/172047 Trans: 02/07/172149 [facility] [id number] Interpreted by: MC SARKAR MD Electronically signed by:MC SARKAR MD 02/07/172151 Physical Exam-(CHC) Physical Exam Vital Signs VS - Last 72 Hours, by Label 02/07/17 02/07/17 02/07/17 02/07/17 17:30 17:39 18:21 18:55 Temp 98.5 98.5 98.5 98.5 Pulse 118 Resp 18 B/P 147/110 Pulse Ox 95 O2 Delivery Room Air 02/07/17 02/07/17 02/07/17 02/07/17 18:55 19:55 20:09 21:05 Temp 98.5 98.5 98.5 98.5 Pulse 108 Resp 18 Pulse Ox 99 02/07/17 02/07/17 02/08/17 02/08/17 21:20 21:24 00:00 03:10 Temp 98.1 98.5 Pulse 122 103 Resp 20 18 B/P 129/79 119/59 Pulse Ox 98 97 95 95 O2 Delivery Room Air Room Air 02/08/17 02/08/17 02/08/17 02/08/17 04:00 07:30 08:11 09:32 Temp 98.5 98.5 98.5 Pulse 102 Resp 18 B/P 112/65 Pulse Ox 96 98 O2 Delivery Room Air Room Air Capillary Refill : Less Than 3 Seconds General Appearance: mild distress HEENT: pharynx normal Neck: non-tender full range of motion Respiratory: lungs clear Cardiovascular: regular rate, rhythm Gastrointestinal: tenderness (in the epigastric area primarily but also diffuse lower quadrants as well) Rectal: deferred Assessment/Plan Assessment/Plan Admission Dx 1. Acute pancreatitis--secondary to hypertriglyceridemia Plan 1. Acute pancreatitis -Patient to be admitted to [facility] for gastrointestinal rest as well as pain control. -clear liquid diet -check amylase lipase, CBC and chemistries in a.m. 2. Diabetes mellitus -Sliding scale insulin currently -She'll be restarted on Levemir and NovoLog as she improves Diagnosis/Problems: Clinical Quality Measures DVT/VTE Risk/Contraindication: Risk Factor Score Per Nursin RFS Level Per Nursing on Admit: 3=High LALITO CASTELLANOS MD Feb 08, 2017 07:41
[2017-02-08 16:00] VITALS: BP 101/55
[2017-02-08 20:00] VITALS: BP 91/54
[2017-02-09 00:08] VITALS: BP 99/54
[2017-02-09] MEDS: morphine INJ 4 MG/ML 1 ML (VIAL/SYRINGE) IV PRN ×3 (01:40→12:50)
[2017-02-09] MEDS: NS IV 1000 ML 1,000 ML IV SCH ×2 (01:41→06:57)
[2017-02-09 05:42] VITALS: BP 98/56
[2017-02-09 06:16] LABS: BASOPHILS % (AUTO) 0 % (0-10); EOSINOPHILS # (AUTO) 0.1 10^3/uL (0.0-0.3); EOSINOPHILS % (AUTO) 2 % (0-10); LYMPHOCYTES % (AUTO) 45 % (12-44); MEAN CORPUSCULAR HEMOGLOBIN 27 PG (25-34); MEAN CORPUSCULAR HGB CONC 32 G/DL (32-36); MEAN CORPUSCULAR VOLUME 83 FL (80-99); MEAN PLATELET VOLUME 11.2 FL (7.4-10.4); MONOCYTES # (AUTO) 0.5 X 10^3 (0.0-1.0); MONOCYTES % (AUTO) 10 % (0-12); NEUTROPHILS # (AUTO) 1.9 X 10^3 (1.8-7.8); NEUTROPHILS % (AUTO) 43 % (42-75); PLATELET COUNT 202 10^3/uL (130-400); RED BLOOD COUNT 3.16 10^6/uL (4.35-5.85); RED CELL DISTRIBUTION WIDTH 15.5 % (10.0-14.5); WHITE BLOOD COUNT 4.5 10^3/uL (4.3-11.0)
[2017-02-09 06:47] LABS: ALANINE AMINOTRANSFERASE 6 U/L (0-55); AMYLASE 84 U/L (25-125); ANION GAP 12 MMOL/L (5-14); ASPARTATE AMINO TRANSFERASE 9 U/L (5-34); BILIRUBIN,TOTAL 0.2 MG/DL (0.1-1.0); BLOOD UREA NITROGEN 2 MG/DL (7-18); BUN/CREATININE RATIO 4; CALCIUM 7.9 MG/DL (8.5-10.1); CARBON DIOXIDE 18 MMOL/L (21-32); CHLORIDE 106 MMOL/L (98-107); CREATININE SERUM 0.51 MG/DL (0.60-1.30); GFR ESTIMATED > 60; GLUCOSE 169 MG/DL (70-105); LIPASE 144 U/L (8-78); POTASSIUM 3.7 MMOL/L (3.6-5.0); SODIUM 136 MMOL/L (135-145); TOTAL PROTEIN 6.1 G/DL (6.4-8.2)
[2017-02-09] MEDS: inSUlin (REGULAR) HUMAN 1 UNIT/0.01 ML (CHARGE PER UNIT) SC SCH ×2 (07:12→12:03)
[2017-02-09 08:27] VITALS: BP 107/66
[2017-02-09] MEDS ORDERED: inSUlin ASPART (NovoLOG) 1 UNIT/0.01 ML (CHARGE PER UNIT) SC SCH (11:00)
[2017-02-09 11:32] VITALS: BP 102/65
--- NOTE | 2017-02-09 12:40 | Discharge Instructions ---
Discharge [facility] Discharge Medications Continued Medications: Insulin Aspart (Novolog Flexpen) 300 Units/3 Ml Solution 20 UNITS SQ AC Days 30 EA Insulin Detemir (Levemir Flextouch) 100 Unit/1 Ml Insuln.pen 40 UNITS SQ HS Days 30 Patient Instructions Goal/Follow Up Appt: Follow up with Dr. Ross on 02/10 at 4 pm. Return to The Hospital For: Worsening abdominal pain, inability to keep down liquids Activity & Diet Discharge Diet: Avoid Fatty Foods, Low Fat/Low Cholesterol Activity as Tolerated: Yes Copy Copies To 1: MC ROSS MDOCH,SUNNY Nam MD Feb 09, 2017 12:39 pm
--- NOTE | 2017-02-09 12:41 | Discharge Summary ---
Diagnosis/Chief Complaint Date of Admission Feb 07, 2017 at 8:21 pm Date of Discharge Feb 09, 2017 Admission Diagnosis Admission Diagnosis 1. Acute pancreatitis--secondary to hypertriglyceridemia Discharge Diagnosis 1. Acute pancreatitis secondary to hypertriglyceridemia- lipase down significantly and tolerating liquids with marked improvement in pain on day of d /c -Discussed importance of taking all of her medications- was on cholesterol meds and ACEI in past, but is currently only taking insulin and has not seen a physician outpatient since 2014, she states she didn't know she could be seen after she lost her medical card. Reassured her that she can still be seen and needs to be seen manuel to resume medications 2. 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 Apparently the pain started up in the morning of February 07. According to records she was released from the hospital a few weeks ago secondary to pancreatitis brought on by hypertriglyceridemia. Patient admitted she was a little confused and why the triglycerides are still elevated. She reports he's been very good about avoiding any fatty foods. Discharge Summary-Simple/Stand Consultations Discharge Physical Examination Allergies: Coded Allergies: hydromorphone (Unverified Allergy, Intermediate, PT HAS TAKEN LORTAB & OXYCODONE IN THE PAST, 01/28/17) Itching Vitals & I&Os Vital Sign - Last 12Hours Date Time Temp Pulse Resp B/P Pulse Ox O2 Delivery O2 Flow Rate FiO2 02/09/17 11:32 96.1 84 20 102/65 100 Room Air Intake and Output 02/08/17 23:59 Intake Total 3490 ml Output Total 3140 ml Balance 350 ml General Appearance: Alert, No Acute Distress Respiratory: Clear to Auscultation, Normal Air Movement Cardiovascular: Regular Rate, No Murmurs Abdominal: Normal Bowel Sounds, Soft, Other (mild epigastric ttp) Neuro: Normal Speech Psych/Mental Status: Mental Status NL Hospital Course See final discharge diagnosis. Labs Laboratory Tests Test 02/07/17 17:30 02/07/17 18:10 02/07/17 19:35 02/08/17 05:20 Range/Units Alanine Aminotransferase (ALT/SGPT) 0-55 U/L Albumin 4.7 H 3.7 3.2-4.5 G/DL Alkaline Phosphatase 61 42 40-136 U/L Amylase Level 201 H 200 H 25-125 U/L Anion Gap 32 H 24 H 5-14 MMOL/L Aspartate Amino Transf (AST/SGOT) 48 H 5-34 U/L BUN/Creatinine Ratio 12 7 Basophils # (Auto) 0.0 0.0 0.0-0.1 10^3/uL Basophils (%) (Auto) 0 0 0-10 % Blood Urea Nitrogen 10 6 L 7-18 MG/DL Calcium Level 10.5 H 8.7 8.5-10.1 MG/DL Carbon Dioxide Level < 5 *L 21-32 MMOL/L Chloride Level 90 L 101 98-107 MMOL/L Cholesterol Level 672 H < 200 MG/DL Creatinine 0.84 0.82 0.60-1.30 MG/DL Eosinophils # (Auto) 0.0 0.0 0.0-0.3 10^3/uL Eosinophils (%) (Auto) 0 0 0-10 % Estimat Glomerular Filtration Rate > 60 > 60 Glucose Level 382 H 295 H 70-105 MG/DL HDL Cholesterol 23 L 40-60 MG/DL Hematocrit 37 33 L 35-52 % Hemoglobin 14.9 11.9 # 11.5-16.0 G/DL LDL Cholesterol Direct 90 1-129 MG/DL Lactate Dehydrogenase 281 H 125-220 U/L Lipase 616 H 461 H 8-78 U/L Lymphocytes # (Auto) 1.1 1.6 1.0-4.0 X 10^3 Lymphocytes (%) (Auto) 11 L 14 12-44 % Mean Corpuscular Hemoglobin 32 29 25-34 PG Mean Corpuscular Hemoglobin Concent 40 H 36 32-36 G/DL Mean Corpuscular Volume 80 82 80-99 FL Mean Platelet Volume 11.1 H 11.2 H 7.4-10.4 FL Monocytes # (Auto) 1.4 H 1.3 H 0.0-1.0 X 10^3 Monocytes (%) (Auto) 13 H 11 0-12 % Neutrophils # (Auto) 7.9 H 8.6 H 1.8-7.8 X 10^3 Neutrophils (%) (Auto) 76 H 75 42-75 % Platelet Count 385 305 130-400 10^3/uL Potassium Level 4.3 5.7 H 3.6-5.0 MMOL/L Red Blood Count 4.63 4.07 L 4.35-5.85 10^6/uL Red Cell Distribution Width 15.3 H 16.0 H 10.0-14.5 % Sodium Level 127 L 132 L 135-145 MMOL/L Total Bilirubin < 0.1 L < 0.1 L 0.1-1.0 MG/DL Total Protein 15.1 H 9.9 H 6.4-8.2 G/DL Triglycerides Level 6432 H <150 MG/DL VLDL Cholesterol 1286 H 5-40 MG/DL White Blood Count 10.4 11.5 H 4.3-11.0 10^3/uL Urine Bacteria NEGATIVE /HPF Urine Bilirubin NEGATIVE NEGATIVE Urine Casts NONE /LPF Urine Clarity SLIGHTLY CLOUDY Urine Color YELLOW Urine Crystals NONE /LPF Urine Culture Indicated NO Urine Glucose (UA) 4+ H NEGATIVE Urine Ketones 4+ H NEGATIVE Urine Leukocyte Esterase NEGATIVE NEGATIVE Urine Mucus NEGATIVE /LPF Urine Nitrite NEGATIVE NEGATIVE Urine Protein 4+ NEGATIVE Urine RBC RARE /HPF Urine RBC (Auto) 3+ H NEGATIVE Urine Specific [place] 1.025 H 1.016-1.022 Urine Squamous Epithelial Cells 10-25 H /HPF Urine Urobilinogen NORMAL NORMAL MG/DL Urine WBC RARE /HPF Urine Yeast FEW H /HPF Urine pH 5 5-9 Bay Test YES-POS Arterial Blood Base Excess -6.9 L -2.5-2.5 MMOL/L Arterial Blood HCO3 18 L 23-27 MMOL/L Arterial Blood Oxygen Saturation 99 94-100 % Arterial Blood Partial Pressure CO2 36 35-45 MMHG Arterial Blood Partial Pressure O2 130 H 79-93 MMHG Arterial Blood Total CO2 19.3 L 21.0-31.0 MMOL/L Arterial Blood pH 7.32 *L 7.37-7.43 Blood Gas Inspired Oxygen 2L Blood Gas Patient Temperature 97.9 Blood Gas Puncture Site RIGHT RADIAL Blood Gas Ventilator Setting NO Test 02/08/17 06:01 02/08/17 11:37 02/08/17 16:00 02/08/17 20:50 Range/Units Glucometer 284 H 290 H 211 H 189 H 70-110 MG/DL Test 02/09/17 05:35 02/09/17 11:34 Range/Units Alanine Aminotransferase (ALT/SGPT) 6 0-55 U/L Albumin 3.0 L 3.2-4.5 G/DL Alkaline Phosphatase 37 L 40-136 U/L Amylase Level 84 25-125 U/L Anion Gap 12 5-14 MMOL/L Aspartate Amino Transf (AST/SGOT) 9 5-34 U/L BUN/Creatinine Ratio 4 Basophils # (Auto) 0.0 0.0-0.1 10^3/uL Basophils (%) (Auto) 0 0-10 % Blood Urea Nitrogen 2 L 7-18 MG/DL Calcium Level 7.9 L 8.5-10.1 MG/DL Carbon Dioxide Level 18 L 21-32 MMOL/L Chloride Level 106 98-107 MMOL/L Creatinine 0.51 L 0.60-1.30 MG/DL Eosinophils # (Auto) 0.1 0.0-0.3 10^3/uL Eosinophils (%) (Auto) 2 0-10 % Estimat Glomerular Filtration Rate > 60 Glucose Level 169 H 70-105 MG/DL Hematocrit 26 L 35-52 % Hemoglobin 8.4 #L 11.5-16.0 G/DL Lipase 144 H 8-78 U/L Lymphocytes # (Auto) 2.0 1.0-4.0 X 10^3 Lymphocytes (%) (Auto) 45 H 12-44 % Mean Corpuscular Hemoglobin 27 25-34 PG Mean Corpuscular Hemoglobin Concent 32 32-36 G/DL Mean Corpuscular Volume 83 80-99 FL Mean Platelet Volume 11.2 H 7.4-10.4 FL Monocytes # (Auto) 0.5 0.0-1.0 X 10^3 Monocytes (%) (Auto) 10 0-12 % Neutrophils # (Auto) 1.9 1.8-7.8 X 10^3 Neutrophils (%) (Auto) 43 42-75 % Platelet Count 202 130-400 10^3/uL Potassium Level 3.7 3.6-5.0 MMOL/L Red Blood Count 3.16 L 4.35-5.85 10^6/uL Red Cell Distribution Width 15.5 H 10.0-14.5 % Sodium Level 136 135-145 MMOL/L Total Bilirubin 0.2 0.1-1.0 MG/DL Total Protein 6.1 L 6.4-8.2 G/DL White Blood Count 4.5 4.3-11.0 10^3/uL Glucometer 223 H 70-110 MG/DL Radiology Reviewed NAME: DEENA THOMAS MED REC#: [id number] PT STATUS: ADM IN : 1980 PHYSICIAN: COURTNEY NUÑEZ APRN ADMIT DATE: 02/07/17 Signed Date of Exam: 02/07/17 CT ABDOMEN/PELVIS W PROCEDURE: CT abdomen and pelvis with contrast. TECHNIQUE: Multiple contiguous axial images were obtained through the abdomen and pelvis after administration of intravenous contrast. Indication: Upper abdominal pain with vomiting. Comparison: 08/18/2016. Discussion: The visualized lung bases are well-aerated. Normal heart size. No pleural or pericardial fluid. Fatty hepatomegaly is stable. The gallbladder, stomach, and adrenal glands are unremarkable. The spleen is enlarged. Inflammatory changes are noted along the pancreatic head and body which is concerning for acute pancreatitis. Recommend clinical correlation with lipase levels. No abscess or pseudocyst formation identified at this time. The large and small bowel loops are unremarkable. No obstruction, pneumatosis, pneumoperitoneum. Follicular activity is noted within the bilateral ovaries. Uterus and urinary bladder are unremarkable. No ascites or pathologically enlarged lymph nodes identified. No acute osseous abnormality. Impression: 1. Inflammatory changes noted along the pancreatic head and body, consistent with acute pancreatitis. 2. Fatty hepatomegaly. 3. Splenomegaly. Dictated by: Dictated on workstation # [id number] Dict: 02/07/172047 Trans: 02/07/172149 [facility] [id number] Interpreted by: MC SARKAR MD Electronically signed by:MC SARKAR MD 02/07/172151 Discharge Instructions to patient/family Please see electonic discharge instructions given to patient. Discharge Medications Reviewed and agree with Discharge Medication list on patient's Discharge Instruction sheet Clinical Quality Measures DVT/VTE Risk/Contraindication: Risk Factor Score Per Nursin RFS Level Per Nursing on Admit: 3=High Copy Copies To 1: MC ROSS MD, BETHANY N MD Feb 09, 2017 12:41
[2017-02-09 13:30] VITALS: BP 102/65
[2017-02-09] MEDS ORDERED: inSUlin DETERMIR 1 UNIT/0.01 ML (LEVEMIR) CHARGE PER UNIT SQ SCH (21:00)
== END 2017-02-09 13:30 | disposition home or self-care (01) | DRG 440 ==
LOC: EDUNIT# 16:36 → ER 16:38 → 4TH 20:21
PROVIDERS: ADMIT Family Medicine; ATTEND Family Medicine
DX: K85.90 Acute pancreatitis without necrosis or infection, unspecified (principal); E78.1 Pure hyperglyceridemia; E11.9 Type 2 diabetes mellitus without complications; D50.9 Iron deficiency anemia, unspecified; E53.8 Deficiency of other specified B group vitamins; Z79.4 Long term (current) use of insulin
CPT/HCPCS: 36415; 74177; 80053; 80061; 81000; 82150; 82805; 82962; 83615; 83690; 85025; 94760; 96361; 96374; 96375

== ENCOUNTER 2017-02-27 15:05 | Inpatient (IN) | payer MEDICARE ==
[~2017-02-27] VITALS: Ht 165.1 cm; Wt 66.8 kg
[2017-02-27] MEDS ORDERED: fentaNYL INJECTION 100 MCG/2 ML AMP IVP ONE ×2 (16:45→18:30)
[2017-02-27] MEDS ORDERED: NS IV 1000 ML 1,000 ML IV SCH (17:00)
--- NOTE | 2017-02-27 17:14 | ED Abdominal Pain ---
General Chief Complaint: Abdominal/GI Problems Stated Complaint: ABD PAIN Nursing Triage Note: c/o abd pain. Onset today. Hx of pancreatitis and hyperglycemia. Sepsis Screen: No Definite Risk Source of Information: Patient Exam Limitations: No Limitations History of Present Illness Time Seen By Provider: 17:13 Initial Comments To ER with reports of epigastric abdominal pain that began this morning. Patient was recently released from this hospital for a history of pancreatitis. She has multiple admissions to the hospital for pancreatitis secondary to hypertriglyceridemia. Patient states that she was started on Lipitor after her last hospital visit and she has been taking that and she has also been taking her insulin. Timing/Duration: 1-2 Days Severity/Quality: Moderate Location: Epigastric Radiation: No Radiation Activities at Onset: None Associated Symptoms: Nausea/Vomiting Allergies and Home Medications Allergies Coded Allergies: hydromorphone (Unverified Allergy, Intermediate, PT HAS TAKEN LORTAB & OXYCODONE IN THE PAST, 01/28/17) Itching Home Medications Insulin Aspart 300 Units/3 Ml Solution, 20 UNITS SQ AC for 30 Days Prescribed by: MONICA ZHENG on 01/30/17 1123 Insulin Detemir 100 Unit/1 Ml Insuln.pen, 40 UNITS SQ HS for 30 Days Prescribed by: MONICA ZHENG on 01/30/17 1123 Review of Systems Constitutional: see HPI EENTM: No Symptoms Reported Respiratory: No Symptoms Reported Cardiovascular: No Symptoms Reported Gastrointestinal: See HPI, Abdominal Pain Genitourinary: No Symptoms Reported Musculoskeletal: no symptoms reported Skin: no symptoms reported Psychiatric/Neurological: No Symptoms Reported Endocrine: No Symptoms Reported Past Qtidzxi-Ezzdbp-Rcbnvy Hx Patient Social History Alcohol Use: Denies Use Recreational Drug Use: No Smoking Status: Never a Smoker 2nd Hand Smoke Exposure: No Recent Foreign Travel: No Contact w/Someone Who Travel: No Recent Infectious Disease Expo: No Recent Hopitalizations: No Immunizations Up To Date Tetanus Booster (TDap): Unknown PED Vaccines UTD: No Date of Pneumonia Vaccine: Oct 21, 2013 Date of Influenza Vaccine: Aug 30, 2016 Seasonal Allergies Seasonal Allergies: No Surgeries HX Surgeries: Yes (DENTAL SURGERY) Surgeries: Tubal Ligation Respiratory Hx Respiratory Disorders: No Cardiovascular Hx Cardiac Disorders: Yes Cardiac Disorders: High Cholesterol Neurological Hx Neurological Disorders: No 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 System : No Hx 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 Disorders: No Sexually Transmitted Disease: No HIV/AIDS: No Female 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 Disorders: Denies [employer] REPA[employer]ER History: Tubal Ligation Genitourinary Hx Genitourinary Disorders: Yes Genitourinary Disorders: Bladder Infection Gastrointestinal Hx Gastrointestinal Disorders: Yes Gastrointestinal Disorders: Pancreatitis Musculoskeletal Hx Musculoskeletal Disorders: No Endocrine Hx Endocrine Disorders: Yes Endocrine Disorders: Diabetes, Insulin dep HEENT HX ENT Disorders: No Loss of Vision: Denies Hearing Impairment: Denies Cancer Hx Cancer: No Psychosocial Hx Psychiatric Problems: No Integumentary HX Skin/Integumentary Disorder: Yes (rash/warts to elbows, knees, feet) Skin/Integumentary Disorders: Recent Skin Changes Blood Transfusions Hx Blood Disorders: No Adverse Reaction to a Blood Tr: No Family Medical History Significant Family History: Heart Disease, CAD Under 55 Years Old, Diabetes, GI Disease, Hypertension Family Medial History: Cancer 03 MOTHER 09 BROTHER GRANDMOTHER Family history: Arthritis 03 MOTHER Family history: Breast disease 03 MOTHER Family history: Cardiovascular disease 03 MOTHER Family history: Diabetes mellitus 03 MOTHER 09 BROTHER GRANDMOTHER Physical Exam Vital Signs VS - Last 72 Hours, by Label 02/27/17 02/27/17 16:00 17:34 Temp 98.4 98.4 Pulse 120 Resp 18 B/P (MAP) 134/94 O2 Delivery Room Air Capillary Refill : Less Than 3 Seconds General Appearance: WD/WN, no apparent distress HEENT: PERRL/EOMI, normal ENT inspection Neck: non-tender, full range of motion Respiratory: no respiratory distress, no accessory muscle use Gastrointestinal: normal bowel sounds, soft, tenderness (epigastric) Extremities: normal range of motion, non-tender Neurologic/Psychiatric: alert, normal mood/affect, oriented x 3 Skin: normal color, warm/dry Progress/Results/Core Measures Results/Orders Lab Results Laboratory Tests Test 02/27/17 17:15 02/27/17 18:29 Range/Units White Blood Count 11.5 H 4.3-11.0 10^3/uL Red Blood Count 4.19 L 4.35-5.85 10^6/uL Hemoglobin 12.6 11.5-16.0 G/DL Hematocrit 34 L 35-52 % Mean Corpuscular Volume 82 80-99 FL Mean Corpuscular Hemoglobin 30 25-34 PG Mean Corpuscular Hemoglobin Concent 37 H 32-36 G/DL Red Cell Distribution Width 15.2 H 10.0-14.5 % Platelet Count 312 130-400 10^3/uL Mean Platelet Volume 10.3 7.4-10.4 FL Neutrophils (%) (Auto) 79 H 42-75 % Lymphocytes (%) (Auto) 9 L 12-44 % Monocytes (%) (Auto) 13 H 0-12 % Eosinophils (%) (Auto) 0 0-10 % Basophils (%) (Auto) 0 0-10 % Neutrophils # (Auto) 9.0 H 1.8-7.8 X 10^3 Lymphocytes # (Auto) 1.0 1.0-4.0 X 10^3 Monocytes # (Auto) 1.4 H 0.0-1.0 X 10^3 Eosinophils # (Auto) 0.0 0.0-0.3 10^3/uL Basophils # (Auto) 0.0 0.0-0.1 10^3/uL Sodium Level 127 L 135-145 MMOL/L Potassium Level 4.5 3.6-5.0 MMOL/L Chloride Level 97 L 98-107 MMOL/L Carbon Dioxide Level 13 L 21-32 MMOL/L Anion Gap 17 H 5-14 MMOL/L Blood Urea Nitrogen 6 L 7-18 MG/DL Creatinine 0.79 0.60-1.30 MG/DL Estimat Glomerular Filtration Rate > 60 BUN/Creatinine Ratio 8 Glucose Level 294 H 70-105 MG/DL Calcium Level 9.3 8.5-10.1 MG/DL Total Bilirubin 0.5 0.1-1.0 MG/DL Aspartate Amino Transf (AST/SGOT) 19 5-34 U/L Alanine Aminotransferase (ALT/SGPT) < 6 0-55 U/L Alkaline Phosphatase 59 40-136 U/L Total Protein 10.6 H 6.4-8.2 G/DL Albumin 4.0 3.2-4.5 G/DL Triglycerides Level 5269 H <150 MG/DL Cholesterol Level 780 H < 200 MG/DL LDL Cholesterol Direct 33 1-129 MG/DL VLDL Cholesterol 1054 H 5-40 MG/DL HDL Cholesterol 24 L 40-60 MG/DL Lipase 377 H 8-78 U/L My Orders Orders - COURTNEY NUÑEZ GUEST ADVISOR Cbc With Automated Diff (02/27/17 15:44) Lipid Panel (02/27/17 15:44) Lipase (02/27/17 15:44) Comprehensive Metabolic Panel (02/27/17 15:44) Saline Lock/Iv-Start (02/27/17 15:44) Ua Culture If Indicated (02/27/17 15:44) Fentanyl Injection (Sublimaze Injection (02/27/17 16:45) Ns Iv 1000 Ml (Sodium Chloride 0.9%) (02/27/17 17:00) Fentanyl Injection (Sublimaze Injection (02/27/17 18:30) Medications Given in ED Current Medications Medications Dose Ordered Sig/Faheem Route Start Time Stop Time Status Last Admin Dose Admin Fentanyl Citrate 50 mcg ONCE ONCE IVP 02/27/17 16:45 02/27/17 16:46 DC 02/27/17 17:34 50 MCG Vital Signs/I&O Vital Sign - Last 12Hours 02/27/17 02/27/17 16:00 17:34 Temp 98.4 98.4 Pulse 120 Resp 18 B/P (MAP) 134/94 O2 Delivery Room Air Blood Pressure Mean: 107 Departure Communication Time/Spoke to Admitting Phy: 18:41 Communication I discussed the case with Dr. Zheng who is on-call for [facility]. We will admit the patient, IV fluids, insulin sliding scale after a bolus of insulin here. Impression Impression: Primary Impression: Acute pancreatitis Additional Impression: Diabetic ketoacidosis Disposition: ADMITTED INPATIENT Condition: Stable Decision to Admit Reason: Admit from ER (General) Decision to Admit/Date: Feb 27, 2017 Time/Decision to Admit Time: 18:41 Departure-Patient Inst. Referrals: [facility] ROSS MD (PCP/Family) Primary Care Physician COURTNEY NUÑEZ APRN Feb 27, 2017 17:14
[2017-02-27 17:29] LABS: BASOPHILS % (AUTO) 0 % (0-10); EOSINOPHILS % (AUTO) 0 % (0-10); LYMPHOCYTES % (AUTO) 9 % (12-44); MEAN CORPUSCULAR HEMOGLOBIN 30 PG (25-34); MEAN CORPUSCULAR HGB CONC 37 G/DL (32-36); MEAN CORPUSCULAR VOLUME 82 FL (80-99); MEAN PLATELET VOLUME 10.3 FL (7.4-10.4); MONOCYTES # (AUTO) 1.4 X 10^3 (0.0-1.0); MONOCYTES % (AUTO) 13 % (0-12); NEUTROPHILS % (AUTO) 79 % (42-75); PLATELET COUNT 312 10^3/uL (130-400); RED BLOOD COUNT 4.19 10^6/uL (4.35-5.85); RED CELL DISTRIBUTION WIDTH 15.2 % (10.0-14.5); WHITE BLOOD COUNT 11.5 10^3/uL (4.3-11.0)
[2017-02-27 18:01] LABS: ANION GAP 17 MMOL/L (5-14); BILIRUBIN,TOTAL 0.5 MG/DL (0.1-1.0); BLOOD UREA NITROGEN 6 MG/DL (7-18); BUN/CREATININE RATIO 8; CALCIUM 9.3 MG/DL (8.5-10.1); CARBON DIOXIDE 13 MMOL/L (21-32); CHLORIDE 97 MMOL/L (98-107); CHOLESTEROL 780 MG/DL (< 200); CREATININE SERUM 0.79 MG/DL (0.60-1.30); DIRECT LDL 33 MG/DL (1-129); GFR ESTIMATED > 60; GLUCOSE 294 MG/DL (70-105); LIPASE 377 U/L (8-78); POTASSIUM 4.5 MMOL/L (3.6-5.0); SODIUM 127 MMOL/L (135-145); TOTAL PROTEIN 10.6 G/DL (6.4-8.2); TRIGLYCERIDES 5269 MG/DL (<150); VLDL CHOLESTEROL 1054 MG/DL (5-40)
[2017-02-27 18:13] LABS: ASPARTATE AMINO TRANSFERASE 19 U/L (5-34)
[2017-02-27 18:35] LABS: ALANINE AMINOTRANSFERASE < 6 U/L (0-55)
[2017-02-27 18:41] LABS: BILIRUBIN,URINE NEGATIVE (NEGATIVE); KETONES,URINE 4+ (NEGATIVE); LEUKOCYTE ESTERASE ,URINE 1+ (NEGATIVE); NITRITE,URINE NEGATIVE (NEGATIVE); PH,URINE 5 (5-9); PROTEIN,URINE 3+ (NEGATIVE); UROBILINOGEN,URINE NORMAL (NORMAL)
[2017-02-27] MEDS ORDERED: inSUlin (REGULAR) HUMAN 1 UNIT/0.01 ML (CHARGE PER UNIT) IV ONE (18:45)
[2017-02-27 20:00] VITALS: BP 119/83
[2017-02-27] MEDS ORDERED: ONDANSETRON 4 MG/2 ML (SDV) Z0FRAN IV PRN (20:00)
[2017-02-27] MEDS: NS IV 1000 ML 1,000 ML IV SCH (20:11)
[2017-02-27] MEDS: fentaNYL INJECTION 100 MCG/2 ML AMP IV PRN ×2 (20:12→22:41)
[2017-02-27] MEDS ORDERED: CATHETER FLUSH 10 ML SYR IV PRN (20:15)
[2017-02-27] MEDS: inSUlin DETERMIR 1 UNIT/0.01 ML (LEVEMIR) CHARGE PER UNIT SQ SCH (20:39)
[2017-02-27] MEDS: inSUlin (REGULAR) HUMAN 1 UNIT/0.01 ML (CHARGE PER UNIT) SC SCH (20:40)
[2017-02-28] VITALS: BP 118/80
[2017-02-28] MEDS: fentaNYL INJECTION 100 MCG/2 ML AMP IV PRN ×11 (01:06→23:32)
[2017-02-28 04:00] VITALS: BP 115/77
[2017-02-28] MEDS: NS IV 1000 ML 1,000 ML IV SCH ×4 (04:37→23:32)
[2017-02-28 05:03] LABS: BASOPHILS % (AUTO) 0 % (0-10); EOSINOPHILS # (AUTO) 0.1 10^3/uL (0.0-0.3); EOSINOPHILS % (AUTO) 1 % (0-10); LYMPHOCYTES # (AUTO) 1.7 X 10^3 (1.0-4.0); LYMPHOCYTES % (AUTO) 23 % (12-44); MEAN CORPUSCULAR HEMOGLOBIN 29 PG (25-34); MEAN CORPUSCULAR HGB CONC 35 G/DL (32-36); MEAN CORPUSCULAR VOLUME 83 FL (80-99); MEAN PLATELET VOLUME 10.5 FL (7.4-10.4); MONOCYTES # (AUTO) 0.7 X 10^3 (0.0-1.0); MONOCYTES % (AUTO) 10 % (0-12); NEUTROPHILS # (AUTO) 5.1 X 10^3 (1.8-7.8); NEUTROPHILS % (AUTO) 67 % (42-75); PLATELET COUNT 258 10^3/uL (130-400); RED BLOOD COUNT 3.55 10^6/uL (4.35-5.85); RED CELL DISTRIBUTION WIDTH 15.5 % (10.0-14.5); WHITE BLOOD COUNT 7.5 10^3/uL (4.3-11.0)
[2017-02-28 05:16] LABS: ALANINE AMINOTRANSFERASE 8 U/L (0-55); ALBUMIN 3.3 G/DL (3.2-4.5); ASPARTATE AMINO TRANSFERASE 37 U/L (5-34); BILIRUBIN,TOTAL 0.2 MG/DL (0.1-1.0); BLOOD UREA NITROGEN 4 MG/DL (7-18); BUN/CREATININE RATIO 6; CALCIUM 8.3 MG/DL (8.5-10.1); CHLORIDE 106 MMOL/L (98-107); CREATININE SERUM 0.68 MG/DL (0.60-1.30); GFR ESTIMATED > 60; GLUCOSE 178 MG/DL (70-105); SODIUM 131 MMOL/L (135-145); TOTAL PROTEIN 8.6 G/DL (6.4-8.2)
[2017-02-28 06:00] LABS: ANION GAP 10 MMOL/L (5-14); CARBON DIOXIDE 15 MMOL/L (21-32)
[2017-02-28 06:04] LABS: POTASSIUM 5.1 MMOL/L (3.6-5.0)
[2017-02-28] MEDS: inSUlin (REGULAR) HUMAN 1 UNIT/0.01 ML (CHARGE PER UNIT) SC SCH ×4 (06:15→21:00)
[2017-02-28 08:00] VITALS: BP 109/69
[2017-02-28 12:00] VITALS: BP 101/66
[2017-02-28 16:10] VITALS: BP 109/72
--- NOTE | 2017-02-28 19:12 | History & Physicial (CHS) ---
HPI History of Present Illness: 36 yo F well known to me that was admitted for worsening abdominal pain. Patient has a known h/o chronic pancreatitis 2/2 to poor compliance with medications and uncontrolled DM. Patient states that she did not do anything different then her normal. States that she has been taking her insulin 80 units levemir at night only. Has not been taking her statin. Pain started 1 day prior to admission and was epigastric in region. Constant abdominal pain that is similar to her normal exacerbation pain. States that her blood sugars have been running 120-160 which is good for her. Denies any blood in stool. + Nausea, no vomiting. Source: patient, RN/MD, old records Exam Limitations: no limitations Date seen by provider: Feb 28, 2017 Attending Physician Flory Zheng MD PCP Aguila Ross MD Consult Date of Admission Feb 27, 2017 at 18:40 Home Medications Home Medications Reviewed patient Home Medication Reconciliation Form Allergies Coded Allergies: hydromorphone (Unverified Allergy, Intermediate, PT HAS TAKEN LORTAB & OXYCODONE IN THE PAST, 01/28/17) Itching PVU-Ioosoj-Qkbbwl Hx Patient Social History Living Status: Lives with Alcohol Use: Denies Use Recreational Drug Use: No Smoking Status: Never a Smoker 2nd Hand Smoke Exposure: No Recent Foreign Travel: No Contact w/other who traveled: No Recent Hopitalizations: No Recent Infectious Disease Expo: No Physical Abuse Screen: No Sexual Abuse: No Immunizations Up To Date Tetanus Booster (TDap): Unknown Date of Pneumonia Vaccine: Oct 21, 2013 Date of Influenza Vaccine: Aug 30, 2016 Past Medical History Past Medical History 1. 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 Acute on Chronic Pancreatitis (admitted >10 times ) 3. HTG- suggestive of familial hypertriglyceridemia- requires IV insulin drip with NPO during admisison to decrease with non-compliance with medications and diet 4. Poly Cystic Ovarian Syndrome 5. Iron Deficiency Anemia 6. Vit B12 Deficiency 7. Anemia requiring transfusions 8. Pseudohyponatremia due to severe hypertriglyceridemia. 9. Non-compliance with medicaitons and diet Past Surgical History 1. Tubal Ligation Family Medical History Significant Family History: Heart Disease, CAD Under 55 Years Old, Diabetes, GI Disease, Hypertension Family History: Cancer 03 MOTHER 09 BROTHER GRANDMOTHER Family history: Arthritis 03 MOTHER Family history: Breast disease 03 MOTHER Family history: Cardiovascular disease 03 MOTHER Family history: Diabetes mellitus 03 MOTHER 09 BROTHER GRANDMOTHER Review of Systems (CHC) Constitutional: No chills, No fever, malaise, weakness, No weight gain EENTM: no symptoms reported Respiratory: no symptoms reported, No dyspnea on exertion, No short of breath, No wheezing Cardiovascular: no symptoms reported, No chest pain, No edema, No palpitations Gastrointestinal: abdominal pain (RUQ), No constipation, No diarrhea, nausea, vomiting Genitourinary: no symptoms reported, No dysuria, No frequency, No hematuria : No Musculoskeletal: no symptoms reported, No back pain, No joint pain, No muscle pain Skin: no symptoms reported, No pruritus, No rash Psychiatric/Neurological: No Symptoms Reported, Denies Anxiety, Denies Depressed Reviewed Test Results Reviewed Test Results Lab Laboratory Tests Test 02/27/17 19:21 02/27/17 20:21 02/28/17 04:23 02/28/17 11:01 Range/Units Glucometer 269 H 266 H 155 H 70-110 MG/DL White Blood Count 7.5 4.3-11.0 10^3/uL Red Blood Count 3.55 L 4.35-5.85 10^6/uL Hemoglobin 10.2 L 11.5-16.0 G/DL Hematocrit 29 L 35-52 % Mean Corpuscular Volume 83 80-99 FL Mean Corpuscular Hemoglobin 29 25-34 PG Mean Corpuscular Hemoglobin Concent 35 32-36 G/DL Red Cell Distribution Width 15.5 H 10.0-14.5 % Platelet Count 258 130-400 10^3/uL Mean Platelet Volume 10.5 H 7.4-10.4 FL Neutrophils (%) (Auto) 67 42-75 % Lymphocytes (%) (Auto) 23 12-44 % Monocytes (%) (Auto) 10 0-12 % Eosinophils (%) (Auto) 1 0-10 % Basophils (%) (Auto) 0 0-10 % Neutrophils # (Auto) 5.1 1.8-7.8 X 10^3 Lymphocytes # (Auto) 1.7 1.0-4.0 X 10^3 Monocytes # (Auto) 0.7 0.0-1.0 X 10^3 Eosinophils # (Auto) 0.1 0.0-0.3 10^3/uL Basophils # (Auto) 0.0 0.0-0.1 10^3/uL Sodium Level 131 L 135-145 MMOL/L Potassium Level 5.1 H 3.6-5.0 MMOL/L Chloride Level 106 98-107 MMOL/L Carbon Dioxide Level 15 L 21-32 MMOL/L Anion Gap 10 5-14 MMOL/L Blood Urea Nitrogen 4 L 7-18 MG/DL Creatinine 0.68 0.60-1.30 MG/DL Estimat Glomerular Filtration Rate > 60 BUN/Creatinine Ratio 6 Glucose Level 178 H 70-105 MG/DL Calcium Level 8.3 L 8.5-10.1 MG/DL Total Bilirubin 0.2 0.1-1.0 MG/DL Aspartate Amino Transf (AST/SGOT) 37 H 5-34 U/L Alanine Aminotransferase (ALT/SGPT) 8 0-55 U/L Alkaline Phosphatase 42 40-136 U/L Total Protein 8.6 H 6.4-8.2 G/DL Albumin 3.3 3.2-4.5 G/DL Test 02/28/17 16:12 02/28/17 21:19 03/01/17 04:44 03/01/17 05:41 Range/Units Glucometer 233 H 116 H 145 H 70-110 MG/DL White Blood Count 4.1 L 4.3-11.0 10^3/uL Red Blood Count 3.00 L 4.35-5.85 10^6/uL Hemoglobin 8.4 L 11.5-16.0 G/DL Hematocrit 25 L 35-52 % Mean Corpuscular Volume 84 80-99 FL Mean Corpuscular Hemoglobin 28 25-34 PG Mean Corpuscular Hemoglobin Concent 33 32-36 G/DL Red Cell Distribution Width 15.3 H 10.0-14.5 % Platelet Count 209 130-400 10^3/uL Mean Platelet Volume 10.3 7.4-10.4 FL Neutrophils (%) (Auto) 43 42-75 % Lymphocytes (%) (Auto) 47 H 12-44 % Monocytes (%) (Auto) 9 0-12 % Eosinophils (%) (Auto) 2 0-10 % Basophils (%) (Auto) 0 0-10 % Neutrophils # (Auto) 1.8 1.8-7.8 X 10^3 Lymphocytes # (Auto) 1.9 1.0-4.0 X 10^3 Monocytes # (Auto) 0.4 0.0-1.0 X 10^3 Eosinophils # (Auto) 0.1 0.0-0.3 10^3/uL Basophils # (Auto) 0.0 0.0-0.1 10^3/uL Sodium Level 136 135-145 MMOL/L Potassium Level 3.5 L 3.6-5.0 MMOL/L Chloride Level 109 H 98-107 MMOL/L Carbon Dioxide Level 18 L 21-32 MMOL/L Anion Gap 9 5-14 MMOL/L Blood Urea Nitrogen 2 L 7-18 MG/DL Creatinine 0.50 L 0.60-1.30 MG/DL Estimat Glomerular Filtration Rate > 60 BUN/Creatinine Ratio 4 Glucose Level 148 H 70-105 MG/DL Calcium Level 8.0 L 8.5-10.1 MG/DL Total Bilirubin 0.1 0.1-1.0 MG/DL Aspartate Amino Transf (AST/SGOT) 16 5-34 U/L Alanine Aminotransferase (ALT/SGPT) 8 0-55 U/L Alkaline Phosphatase 43 40-136 U/L Total Protein 6.4 6.4-8.2 G/DL Albumin 2.8 L 3.2-4.5 G/DL Triglycerides Level 1810 H <150 MG/DL Lipase 116 H 8-78 U/L Test 03/01/17 11:37 03/01/17 16:33 Range/Units Glucometer 222 H 255 H 70-110 MG/DL Physical Exam-(CHC) Physical Exam Vital Signs VS - Last 72 Hours, by Label 02/27/17 02/27/17 02/27/17 02/27/17 16:00 17:34 18:42 19:26 Temp 98.4 98.4 98.4 98.7 Pulse 120 100 Resp 18 18 B/P (MAP) 134/94 Pulse Ox 97 O2 Delivery Room Air 02/27/17 02/27/17 02/28/17 02/28/17 19:55 20:00 00:00 04:00 Temp 97.2 98.8 97.8 Pulse 108 100 98 Resp 18 20 20 B/P (MAP) 119/83 118/80 115/77 Pulse Ox 98 98 98 O2 Delivery Room Air Room Air Room Air Room Air 02/28/17 02/28/17 02/28/17 02/28/17 08:00 12:00 16:10 20:01 Temp 97.3 97.2 97.1 96.9 Pulse 93 98 107 106 Resp 18 16 16 20 B/P (MAP) 109/69 101/66 109/72 98/66 Pulse Ox 98 98 100 98 O2 Delivery Room Air Room Air Room Air 02/28/17 03/01/17 03/01/17 03/01/17 21:00 01:00 04:00 08:00 Temp 97.5 97.6 99.1 Pulse 102 88 90 Resp 20 20 18 B/P (MAP) 97/59 100/68 97/64 Pulse Ox 97 98 99 O2 Delivery Room Air Room Air Room Air Room Air 03/01/17 03/01/17 12:00 16:00 Temp 97.3 99.2 Pulse 90 95 Resp 18 20 B/P (MAP) 99/66 110/71 Pulse Ox 100 96 O2 Delivery Room Air Room Air Capillary Refill : Less Than 3 Seconds General Appearance: WD/WN, no apparent distress HEENT: PERRL/EOMI Neck: non-tender, full range of motion, supple, normal inspection, No carotid bruit Respiratory: chest non-tender, lungs clear, normal breath sounds, no respiratory distress, no accessory muscle use Cardiovascular: normal peripheral pulses, regular rate, rhythm, no edema, no gallop, no JVD, no murmur Gastrointestinal: normal bowel sounds, soft, no organomegaly, tenderness ( Epigastric), No mass, No hepatomegaly, No spleenomegaly Extremities: normal range of motion, non-tender, normal inspection, no pedal edema, no calf tenderness, normal capillary refill Neurologic/Psychiatric: cognos II-XII nml as tested, no motor/sensory deficits, alert, normal mood/affect, oriented x 3 Skin: normal color, warm/dry Lymphatic: no adenopathy Assessment/Plan Assessment/Plan Plan 36 yo F admitted for uncontrolled DM and Triglyceridemia resulting in Acidosis Plan Metabolic Acidosis 2/2 Uncontrolled DM and Elevated TG - Aggressive fluid hydration - Continue home insulin - Daily labs Uncontrolled Insulin Dependent DM - Continue home insulin, Accuchecks AC/HS Acute on Chronic Pancreatitis - PO meds for pain, Will monitor lipase Hypertriglyceridemia - See above Microcytic Anemia of chronic disease with iron deficiency FEN: CLD, advance as tolerated DVT PPX: lovenox Dispo: Admit to medical floor Diagnosis/Problems: Clinical Quality Measures DVT/VTE Risk/Contraindication: Risk Factor Score Per Nursin RFS Level Per Nursing on Admit: 1=Low/No VTE PPX Copy Copies To 1: AGUILA ROSS MD, HOLLY R MD Feb 28, 2017 19:12
[2017-02-28 20:01] VITALS: BP 98/66
[2017-02-28] MEDS: ENOXAPARIN 40 MG/0.4 ML (LOVENOX) SYR SC SCH (21:29)
[2017-02-28] MEDS: ATORVASTATIN 40 MG (LIPITOR) TABLET PO SCH (21:30)
[2017-02-28] MEDS: inSUlin DETERMIR 1 UNIT/0.01 ML (LEVEMIR) CHARGE PER UNIT SQ SCH (21:30)
[2017-03-01] VITALS (7 sets, daily range): BP systolic 97–124; BP diastolic 59–86
[2017-03-01] MEDS: fentaNYL INJECTION 100 MCG/2 ML AMP IV PRN ×8 (01:36→18:11)
[2017-03-01 05:33] LABS: BASOPHILS % (AUTO) 0 % (0-10); EOSINOPHILS # (AUTO) 0.1 10^3/uL (0.0-0.3); EOSINOPHILS % (AUTO) 2 % (0-10); LYMPHOCYTES # (AUTO) 1.9 X 10^3 (1.0-4.0); LYMPHOCYTES % (AUTO) 47 % (12-44); MEAN CORPUSCULAR HEMOGLOBIN 28 PG (25-34); MEAN CORPUSCULAR HGB CONC 33 G/DL (32-36); MEAN CORPUSCULAR VOLUME 84 FL (80-99); MEAN PLATELET VOLUME 10.3 FL (7.4-10.4); MONOCYTES # (AUTO) 0.4 X 10^3 (0.0-1.0); MONOCYTES % (AUTO) 9 % (0-12); NEUTROPHILS # (AUTO) 1.8 X 10^3 (1.8-7.8); NEUTROPHILS % (AUTO) 43 % (42-75); PLATELET COUNT 209 10^3/uL (130-400); RED CELL DISTRIBUTION WIDTH 15.3 % (10.0-14.5); WHITE BLOOD COUNT 4.1 10^3/uL (4.3-11.0)
[2017-03-01 05:55] LABS: ALANINE AMINOTRANSFERASE 8 U/L (0-55); ALBUMIN 2.8 G/DL (3.2-4.5); ANION GAP 9 MMOL/L (5-14); ASPARTATE AMINO TRANSFERASE 16 U/L (5-34); BILIRUBIN,TOTAL 0.1 MG/DL (0.1-1.0); BLOOD UREA NITROGEN 2 MG/DL (7-18); BUN/CREATININE RATIO 4; CARBON DIOXIDE 18 MMOL/L (21-32); CHLORIDE 109 MMOL/L (98-107); GFR ESTIMATED > 60; GLUCOSE 148 MG/DL (70-105); LIPASE 116 U/L (8-78); POTASSIUM 3.5 MMOL/L (3.6-5.0); SODIUM 136 MMOL/L (135-145); TOTAL PROTEIN 6.4 G/DL (6.4-8.2)
[2017-03-01] MEDS ORDERED: NON-FORMULARY MEDICATION 1 EA EA (Insulin Aspart (Novolog Flexpen) 20 UNITS) SQ SCH (06:00)
[2017-03-01] MEDS: inSUlin (REGULAR) HUMAN 1 UNIT/0.01 ML (CHARGE PER UNIT) SC SCH ×4 (06:00→20:46)
[2017-03-01 06:01] LABS: TRIGLYCERIDES 1810 MG/DL (<150)
[2017-03-01] MEDS: NS IV 1000 ML 1,000 ML IV SCH ×2 (06:18→11:39)
[2017-03-01] MEDS: ENOXAPARIN 40 MG/0.4 ML (LOVENOX) SYR SC SCH (18:15)
--- NOTE | 2017-03-01 19:10 | Progress Note (SOAP) ---
Subjective Subjective/Events-last exam Patient states that she is feeling much better this AM and wants to try and eat. Denies any nausea with CLD last night. Pain has improved. Date seen by provider: Mar 01, 2017 Objective Exam Last Set of Vital Signs Vital Signs Date Time Temp Pulse Resp B/P (MAP) Pulse Ox O2 Delivery O2 Flow Rate FiO2 03/01/17 16:00 99.2 95 20 110/71 96 Room Air Capillary Refill : Less Than 3 Seconds I&O Intake and Output 03/01/17 00:00 Intake Total 5280 ml Output Total 1600 ml Balance 3680 ml Intake Oral 1280 ml IV Total 4000 ml Output Urine Total 1600 ml # Voids 1 # Bowel Movements 1 General: Alert, Oriented X3, Cooperative, No Acute Distress Lungs: Clear to Auscultation, Normal Air Movement Heart: Regular Rate, No Murmurs Abdomen: Normal Bowel Sounds, Soft, No Hepatosplenomegaly, Other (mild ttp epigastric region) Extremities: No Edema, No Tenderness/Swelling Psych/Mental Status: Mental Status NL, Mood NL Results/Procedures Lab Laboratory Tests 02/28/17 21:19: Glucometer 116H 03/01/17 04:44: White Blood Count 4.1L, Red Blood Count 3.00L, Hemoglobin 8.4L, Hematocrit 25L, Mean Corpuscular Volume 84, Mean Corpuscular Hemoglobin 28, Mean Corpuscular Hemoglobin Concent 33, Red Cell Distribution Width 15.3H, Platelet Count 209, Mean Platelet Volume 10.3, Neutrophils (%) (Auto) 43, Lymphocytes (%) (Auto) 47H , Monocytes (%) (Auto) 9, Eosinophils (%) (Auto) 2, Basophils (%) (Auto) 0, Neutrophils # (Auto) 1.8, Lymphocytes # (Auto) 1.9, Monocytes # (Auto) 0.4, Eosinophils # (Auto) 0.1, Basophils # (Auto) 0.0, Sodium Level 136, Potassium Level 3.5L, Chloride Level 109H, Carbon Dioxide Level 18L, Anion Gap 9, Blood Urea Nitrogen 2L, Creatinine 0.50L, Estimat Glomerular Filtration Rate > 60, BUN /Creatinine Ratio 4, Glucose Level 148H, Calcium Level 8.0L, Total Bilirubin 0.1 , Aspartate Amino Transf (AST/SGOT) 16, Alanine Aminotransferase (ALT/SGPT) 8, Alkaline Phosphatase 43, Total Protein 6.4, Albumin 2.8L, Triglycerides Level 1810H, Lipase 116H 03/01/17 05:41: Glucometer 145H 03/01/17 11:37: Glucometer 222H 03/01/17 16:33: Glucometer 255H Assessment/Plan Assessment/Plan Plan 36 yo F admitted for uncontrolled DM and Triglyceridemia resulting in Acidosis Plan Metabolic Acidosis 2/2 Uncontrolled DM and Elevated TG - Aggressive fluid hydration, will stop IV fluids today, encourage PO hydration - Continue home insulin - Daily labs Uncontrolled Insulin Dependent DM - Continue home insulin, Accuchecks AC/HS Acute on Chronic Pancreatitis - PO meds for pain, Will monitor lipase Hypertriglyceridemia - See above Microcytic Anemia of chronic disease with iron deficiency - Will get iron panel, if low with replace with IV iron replacement Venefer FEN: CHO diet DVT PPX: lovenox Dispo: Admit to medical floor Diagnosis/Problems: Clinical Quality Measures DVT/VTE Risk/Contraindication: Risk Factor Score Per Nursin RFS Level Per Nursing on Admit: 1=Low/No VTE PPX MONICA WORRELL MD Mar 01, 2017 19:10
[2017-03-01] MEDS: ATORVASTATIN 40 MG (LIPITOR) TABLET PO SCH (20:45)
[2017-03-01] MEDS: inSUlin DETERMIR 1 UNIT/0.01 ML (LEVEMIR) CHARGE PER UNIT SQ SCH (20:46)
[2017-03-02] MEDS: inSUlin (REGULAR) HUMAN 1 UNIT/0.01 ML (CHARGE PER UNIT) SC SCH ×2 (05:30→11:16)
[2017-03-02 06:01] LABS: BASOPHILS % (AUTO) 0 % (0-10); EOSINOPHILS # (AUTO) 0.1 10^3/uL (0.0-0.3); EOSINOPHILS % (AUTO) 2 % (0-10); LYMPHOCYTES # (AUTO) 1.4 X 10^3 (1.0-4.0); LYMPHOCYTES % (AUTO) 46 % (12-44); MEAN CORPUSCULAR HEMOGLOBIN 27 PG (25-34); MEAN CORPUSCULAR HGB CONC 32 G/DL (32-36); MEAN CORPUSCULAR VOLUME 84 FL (80-99); MEAN PLATELET VOLUME 9.4 FL (7.4-10.4); MONOCYTES # (AUTO) 0.2 X 10^3 (0.0-1.0); MONOCYTES % (AUTO) 8 % (0-12); NEUTROPHILS # (AUTO) 1.3 X 10^3 (1.8-7.8); NEUTROPHILS % (AUTO) 44 % (42-75); PLATELET COUNT 198 10^3/uL (130-400); RED BLOOD COUNT 3.17 10^6/uL (4.35-5.85); RED CELL DISTRIBUTION WIDTH 15.1 % (10.0-14.5)
[2017-03-02 06:21] LABS: ALANINE AMINOTRANSFERASE 15 U/L (0-55); ALBUMIN 3.1 G/DL (3.2-4.5); ANION GAP 10 MMOL/L (5-14); ASPARTATE AMINO TRANSFERASE 16 U/L (5-34); BILIRUBIN,TOTAL 0.2 MG/DL (0.1-1.0); BLOOD UREA NITROGEN 4 MG/DL (7-18); BUN/CREATININE RATIO 7; CALCIUM 8.6 MG/DL (8.5-10.1); CARBON DIOXIDE 22 MMOL/L (21-32); CHLORIDE 108 MMOL/L (98-107); CREATININE SERUM 0.56 MG/DL (0.60-1.30); GFR ESTIMATED > 60; GLUCOSE 103 MG/DL (70-105); LIPASE 83 U/L (8-78); POTASSIUM 3.3 MMOL/L (3.6-5.0); SODIUM 140 MMOL/L (135-145); TOTAL PROTEIN 6.5 G/DL (6.4-8.2); TRIGLYCERIDES 1280 MG/DL (<150)
[2017-03-02 08:00] VITALS: BP 128/87
[2017-03-02] MEDS ORDERED: KCL 20 MEQ TAB (K-DUR) PO SCH (10:30)
[2017-03-02] MEDS ORDERED: POTA10CA43 PO (11:26)
--- NOTE | 2017-03-02 11:26 | Discharge Summary-Hospitalist ---
Diagnosis/Chief Complaint Date of Admission Feb 27, 2017 at 18:40 Date of Discharge Discharge Diagnosis 36 yo F admitted for uncontrolled DM and Triglyceridemia resulting in Acidosis Plan Metabolic Acidosis 2/2 Uncontrolled DM and Elevated TG - Aggressive fluid hydration, will stop IV fluids today, encourage PO hydration - Continue home insulin - Daily labs Uncontrolled Insulin Dependent DM - Continue home insulin, Accuchecks AC/HS Acute on Chronic Pancreatitis - PO meds for pain, Will monitor lipase Hypertriglyceridemia - See above Microcytic Anemia of chronic disease with iron deficiency - Will get iron panel, if low with replace with IV iron replacement Venefer Reason Hospital Visit/Course Chart Review: WBC 3.0, Hgb 8.5, Lipase 83, Triglycerides 1280, K+ 3.3 receiving supplement Patient Interview: Pt states she is eating and drinking well today. Pt states she is ready to be DC today. Physical exam was stable. Pt states she takes OTC meds for pain. Pt denies taking pain meds regularly. Scribed by Jeremías Donato under the direct supervision of Dr. Ahumada. No fever, vital signs stable, pleasant, gentleman in her bed Regular rate and rhythm, clear to auscultation bilaterally No edema Hospital course: Patient had an uneventful hospital course she was hospitalist for acute on chronic pancreatitis due to hypertriglyceridemia and acidosis from [id number] diabetes. Overall she progressed well did not require any narcotics while hospitalized and was monitored closely all labs were reviewed and returned back to within normal limits and stable and she was discharged in improved status since her ride was with her in her bed at day of discharge and ready to take her home. Discharge Summary Discharge Physical Examination Allergies: Coded Allergies: hydromorphone (Unverified Allergy, Intermediate, PT HAS TAKEN LORTAB & OXYCODONE IN THE PAST, 01/28/17) Itching Vitals & I&Os Vital Signs Date Time Temp Pulse Resp B/P (MAP) Pulse Ox O2 Delivery O2 Flow Rate FiO2 03/02/17 08:00 97.6 92 16 128/87 98 Room Air Hospital Course Labs (last 24 hrs) Laboratory Tests 03/01/17 16:33: Glucometer 255H 03/01/17 20:42: Glucometer 264H 03/01/17 21:04: Glucometer 240H 03/02/17 05:29: Glucometer 109 03/02/17 05:53: White Blood Count 3.0L, Red Blood Count 3.17L, Hemoglobin 8.5L, Hematocrit 27L, Mean Corpuscular Volume 84, Mean Corpuscular Hemoglobin 27, Mean Corpuscular Hemoglobin Concent 32, Red Cell Distribution Width 15.1H, Platelet Count 198, Mean Platelet Volume 9.4, Neutrophils (%) (Auto) 44, Lymphocytes (%) (Auto) 46H , Monocytes (%) (Auto) 8, Eosinophils (%) (Auto) 2, Basophils (%) (Auto) 0, Neutrophils # (Auto) 1.3L, Lymphocytes # (Auto) 1.4, Monocytes # (Auto) 0.2, Eosinophils # (Auto) 0.1, Basophils # (Auto) 0.0, Sodium Level 140, Potassium Level 3.3L, Chloride Level 108H, Carbon Dioxide Level 22, Anion Gap 10, Blood Urea Nitrogen 4L, Creatinine 0.56L, Estimat Glomerular Filtration Rate > 60, BUN /Creatinine Ratio 7, Glucose Level 103, Calcium Level 8.6, Total Bilirubin 0.2, Aspartate Amino Transf (AST/SGOT) 16, Alanine Aminotransferase (ALT/SGPT) 15, Alkaline Phosphatase 47, Total Protein 6.5, Albumin 3.1L, Triglycerides Level 1280H, Lipase 83H 03/02/17 11:12: Glucometer 281H Pending Labs Laboratory Tests 03/02/17 05:29: Glucometer 109 03/02/17 05:53: White Blood Count 3.0, Red Blood Count 3.17, Hemoglobin 8.5, Hematocrit 27, Mean Corpuscular Volume 84, Mean Corpuscular Hemoglobin 27, Mean Corpuscular Hemoglobin Concent 32, Red Cell Distribution Width 15.1, Platelet Count 198, Mean Platelet Volume 9.4, Neutrophils (%) (Auto) 44, Lymphocytes (%) (Auto) 46, Monocytes (%) (Auto) 8, Eosinophils (%) (Auto) 2, Basophils (%) (Auto) 0, Neutrophils # (Auto) 1.3, Lymphocytes # (Auto) 1.4, Monocytes # (Auto) 0.2, Eosinophils # (Auto) 0.1, Basophils # (Auto) 0.0, Sodium Level 140, Potassium Level 3.3, Chloride Level 108, Carbon Dioxide Level 22, Anion Gap 10, Blood Urea Nitrogen 4, Creatinine 0.56, Estimat Glomerular Filtration Rate > 60, BUN/ Creatinine Ratio 7, Glucose Level 103, Calcium Level 8.6, Iron Level [Pending], Total Iron Binding Capacity [Pending], Unsaturated Iron Binding Capacity [ Pending], Transferrin % Saturation [Pending], Ferritin [Pending], Total Bilirubin 0.2, Aspartate Amino Transf (AST/SGOT) 16, Alanine Aminotransferase ( ALT/SGPT) 15, Alkaline Phosphatase 47, Total Protein 6.5, Albumin 3.1, Triglycerides Level 1280, Lipase 83 03/02/17 11:12: Glucometer 281 Discharge Home Medications: Active Scripts Active Potassium Chloride 10 Meq Capsule.er 10 Meq PO DAILY Levemir Flextouch (Insulin Detemir) 100 Unit/1 Ml Insuln.pen 40 Units SQ HS 30 Days Novolog Flexpen (Insulin Aspart) 300 Units/3 Ml Solution 20 Units SQ AC 30 Days Instructions to patient/family Please see electonic discharge instructions given to patient. Clinical Quality Measures DVT/VTE Risk/Contraindication: Risk Factor Score Per Nursin RFS Level Per Nursing on Admit: 1=Low/No VTE PPX DERRELL AHUMADA DO Mar 02, 2017 11:26
--- NOTE | 2017-03-02 11:27 | Discharge Instructions ---
Discharge Instructions Discharge Medications New, Converted or Re-Newed RX: Transmitted to Pharmacy New Medications: Potassium Chloride (Potassium Chloride) 10 Meq Capsule.er 10 MEQ PO DAILY, #7 CAP Continued Medications: Insulin Aspart (Novolog Flexpen) 300 Units/3 Ml Solution 20 UNITS SQ AC for 30 Days, EA Insulin Detemir (Levemir Flextouch) 100 Unit/1 Ml Insuln.pen 40 UNITS SQ HS for 30 Days Patient Instructions Goal/Follow Up Appt: Dr[facility] Sandhu at [facility] Activity & Diet Discharge Diet: Soft Diet Activity as Tolerated: Yes DERRELL RANGEL DO Mar 02, 2017 11:27
[2017-03-02 12:30] VITALS: BP 118/72
--- OUTSIDE RECORDS SUMMARY | 2017-03-22 08:52 | XMS REPORT ---
Author Author MC ROSS [facility] eClinical[employer] Address Unknown Phone Unavailable Care Team Providers Care Potato Spotter Name Role Phone MC ROSS CP Unavailable Allergies No Known Allergies Problems Problem Type Condition Code Onset Dates Condition Status Problem Screening for malignant neoplasm of the cervix V76.2 Active Problem Pure hyperglyceridemia 272.1 Active Problem Obesity, unspecified 278.00 Active Problem Other fluid overload 276.69 Active Problem Acute pancreatitis 577.0 Active Problem Unspecified anemia 285.9 Active Problem Disorders of magnesium metabolism 275.2 Active Problem Acute pharyngitis 462 Active Problem Diabetes mellitus without mention of complication, type II or unspecified type, not stated as uncontrolled 250.00 Active Problem Unspecified iron deficiency anemia 280.9 Active Problem Unspecified vaginitis and vulvovaginitis 616.10 Active Problem Molluscum contagiosum 078.0 Active Problem Acute upper respiratory infections of unspecified site 465.9 Active Problem Acute sinusitis, unspecified 461.9 Active Problem Screening examination for venereal disease V74.5 Active Problem Family history of malignant neoplasm, ovary V16.41 Active Problem Dysuria 788.1 Active Problem Unspecified breast screening V76.10 Active Problem Irregular menstrual cycle 626.4 Active Problem Special screening examination, human papillomavirus [HPV] V73.81 Active Medications No Known Medications Results No Known Results Summary Purpose eClinicalWorks Submission
--- OUTSIDE RECORDS SUMMARY | 2017-03-22 08:55 | XMS REPORT ---
Author Author GREER JOHN [facility] Address [address] [place] [address] Care Team Providers Care Instrument Fitter Name Role Phone GREER JOHN Unavailable PROBLEMS Type Condition ICD9-CM Code MNR14-SI Code Onset Dates Condition Status SNOMED Code Problem Obesity, unspecified 278.00 Active 444281384 Problem Acute pharyngitis 462 Active 431993757 Problem Pure hyperglyceridemia 272.1 Active 555527430 Problem Unspecified anemia 285.9 Active 986857822 Problem Acute upper respiratory infections of unspecified site 465.9 Active 34523333 Problem Other fluid overload 276.69 Active 61071613 Problem Unspecified iron deficiency anemia 280.9 Active 69783795 Problem Disorders of magnesium metabolism 275.2 Active 08507733 Problem Acute pancreatitis 577.0 Active 711581546 Problem Diabetes mellitus without mention of complication, type II or unspecified type, not stated as uncontrolled 250.00 Active 562557612 Problem Molluscum contagiosum 078.0 Active 36558477 Problem Dysuria 788.1 Active 96621591 Problem Acute sinusitis, unspecified 461.9 Active 58236394 Problem Unspecified vaginitis and vulvovaginitis 616.10 Active 989232856 Problem Family history of malignant neoplasm, ovary V16.41 Active 415811131 Problem Unspecified breast screening V76.10 Active 576747474 Problem Irregular menstrual cycle 626.4 Active 85339377 Problem Special screening examination, human papillomavirus [HPV] V73.81 Active 110747893 Problem Screening examination for venereal disease V74.5 Active 911073382 Problem Screening for malignant neoplasm of the cervix V76.2 Active 443602046 ALLERGIES Unknown Allergies SOCIAL HISTORY No smoking Hx information available PLAN OF CARE VITAL SIGNS MEDICATIONS Medication Instructions Dosage Frequency Start Date End Date Duration Status Bactrim DS 800-160 MG Orally twice a day x 5 days 1 tablet Jul, Jul, Active RESULTS No Results PROCEDURES No Known procedures IMMUNIZATIONS No Known Immunizations
--- OUTSIDE RECORDS SUMMARY | 2017-03-22 08:55 | XMS REPORT ---
Author Author MC ROSS Organization [employer] Address Unknown Phone Unavailable Care Team Providers Care Crab Meat Processor Name Role Phone MC ROSS CP Unavailable [...]
--- OUTSIDE RECORDS SUMMARY | 2017-03-22 08:56 | XMS REPORT ---
Author Author MC ROSS Organization [employer] Address Unknown Phone Unavailable Care Team Providers Care Roping Tender Name Role Phone MC ROSS CP Unavailable [...]
--- OUTSIDE RECORDS SUMMARY | 2017-03-22 08:56 | XMS REPORT ---
Author Author GREER JOHN Organization [employer] Address Unknown Phone Unavailable Care Team Providers Care Instrument Sterilizer Name Role Phone GREER JOHN CP Unavailable Allergies No Known Allergies Problems [...]
--- OUTSIDE RECORDS SUMMARY | 2017-03-22 08:56 | XMS REPORT ---
Author Author GREER JOHN Organization [employer] Address Unknown Phone Unavailable Care Team Providers Care Aeronautical Design Engineer Name Role Phone GREER JOHN CP Unavailable [...] examination, human papillomavirus [HPV] V73.81 Active Medications Medication Code System Code Instructions Start Date End Date Status Dosage NovoLog Flexpen [facility] [address]-89 100 unit/mL Subcutaneous 3 times a day before meals Dec 12, 2014 take 15 Units Results No Known Results Summary Purpose eClinicalWorks Submission
== END 2017-03-02 12:30 | disposition home or self-care (01) | DRG 438 ==
LOC: EDUNIT# 15:05 → ER 15:06 → 4TH 18:40
PROVIDERS: ADMIT Family Medicine; ATTEND Family Medicine
DX: K85.90 Acute pancreatitis without necrosis or infection, unspecified (principal); K86.1 Other chronic pancreatitis; E78.1 Pure hyperglyceridemia; E13.10 Other specified diabetes mellitus with ketoacidosis without coma; E87.1 Hypo-osmolality and hyponatremia; E78.00 Pure hypercholesterolemia, unspecified; D50.9 Iron deficiency anemia, unspecified; E53.8 Deficiency of other specified B group vitamins; Z79.4 Long term (current) use of insulin; E28.2 Polycystic ovarian syndrome; Z91.11 Patient's noncompliance with dietary regimen; Z91.19 Patient's noncompliance with other medical treatment and regimen
CPT/HCPCS: 36415; 80053; 80061; 81000; 82728; 82962; 83540; 83690; 84478; 85025; 96374; 96376; 99285

== ENCOUNTER 2017-03-19 12:17 | Emergency (ER) | payer MEDICARE ==
[~2017-03-19] VITALS: Ht 165.1 cm; Wt 66.8 kg
[~2017-03-19 12:17] MED LIST changes: +POTA10CA43 PO
[2017-03-19] MEDS ORDERED: fentaNYL INJECTION 100 MCG/2 ML AMP IVP ONE ×2 (12:30→14:00)
[2017-03-19] MEDS ORDERED: ATOR20TA66 PO (12:30)
[2017-03-19] MEDS ORDERED: NS IV 1000 ML 1,000 ML IV SCH (12:30)
--- NOTE | 2017-03-19 12:32 | ED Abdominal Pain ---
General Chief Complaint: Abdominal/GI Problems Stated Complaint: ABD PAIN Nursing Triage Note: Patient reports diffuse abdomen pain with nausea. Sepsis Screen: No Definite Risk Source of Information: Patient Exam Limitations: No Limitations History of Present Illness Time Seen By Provider: 12:31 Initial Comments To ER with recurrent epigastric abdominal pain that began this morning about 6 a.m. No vomiting or diarrhea but she has had nausea. History of recurrent pancreatitis secondary to hypertriglyceridemia. She is currently on atorvastatin and states that her last dose of this was last night. States that her blood sugars have been running in the 180-200 range and her last dose of insulin was last night. Timing/Duration: 4-6 Hours Severity/Quality: Moderate Location: Epigastric Radiation: No Radiation Associated Symptoms: Nausea/Vomiting Allergies and Home Medications Allergies Coded Allergies: hydromorphone (Unverified Allergy, Intermediate, PT HAS TAKEN LORTAB & OXYCODONE IN THE PAST, 01/28/17) Itching Home Medications Atorvastatin Calcium 20 Mg Tablet, 20 MG PO, (Reported) Insulin Aspart 300 Units/3 Ml Solution, 20 UNITS SQ AC for 30 Days Prescribed by: MONICA WORRELL on 01/30/17 1123 Insulin Detemir 100 Unit/1 Ml Insuln.pen, 40 UNITS SQ HS for 30 Days Prescribed by: MONICA WORRELL on 01/30/17 1123 Review of Systems Constitutional: see HPI EENTM: No Symptoms Reported Respiratory: No Symptoms Reported Cardiovascular: No Symptoms Reported Gastrointestinal: See HPI, Abdominal Pain, Nausea Genitourinary: No Symptoms Reported Musculoskeletal: no symptoms reported Skin: no symptoms reported Psychiatric/Neurological: No Symptoms Reported Endocrine: No Symptoms Reported Hematologic/Lymphatic: No Symptoms Reported Past Cyakhud-Zebxfo-Tvoomx Hx Patient Social History Alcohol Use: Denies Use Recreational Drug Use: No 2nd Hand Smoke Exposure: No Recent Foreign Travel: No Contact w/Someone Who Travel: No Recent Infectious Disease Expo: No Recent Hopitalizations: No Immunizations Up To Date Tetanus Booster (TDap): Unknown PED Vaccines UTD: No Date of Pneumonia Vaccine: Oct 21, 2013 Date of Influenza Vaccine: Aug 30, 2016 Seasonal Allergies Seasonal Allergies: No Surgeries HX Surgeries: Yes (DENTAL SURGERY) Surgeries: Tubal Ligation Respiratory Hx Respiratory Disorders: No Cardiovascular Hx Cardiac Disorders: Yes Cardiac Disorders: High Cholesterol Neurological Hx Neurological Disorders: No 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 System Hx 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 Disorders: No Sexually Transmitted Disease: No HIV/AIDS: No Female 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 Disorders: Denies MUSEUM ASSISTANT 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: Tubal Ligation Genitourinary Hx Genitourinary Disorders: Yes Genitourinary Disorders: Bladder Infection Gastrointestinal Hx Gastrointestinal Disorders: Yes Gastrointestinal Disorders: Pancreatitis Musculoskeletal Hx Musculoskeletal Disorders: No Endocrine Hx Endocrine Disorders: Yes Endocrine Disorders: Diabetes, Insulin dep HEENT HX ENT Disorders: No Loss of Vision: Denies Hearing Impairment: Denies Cancer Hx Cancer: No Psychosocial Hx Psychiatric Problems: No Integumentary HX Skin/Integumentary Disorder: Yes (rash/warts to elbows, knees, feet) Skin/Integumentary Disorders: Recent Skin Changes Blood Transfusions Hx Blood Disorders: No Adverse Reaction to a Blood Tr: No Family Medical History Significant Family History: Heart Disease, CAD Under 55 Years Old, Diabetes, GI Disease, Hypertension Family Medial History: Cancer 03 MOTHER 09 BROTHER GRANDMOTHER Family history: Arthritis 03 MOTHER Family history: Breast disease 03 MOTHER Family history: Cardiovascular disease 03 MOTHER Family history: Diabetes mellitus 03 MOTHER 09 BROTHER GRANDMOTHER Physical Exam Vital Signs VS - Last 72 Hours, by Label 03/19/17 12:26 Temp 97.7 Pulse 142 Resp 24 B/P (MAP) 167/111 Pulse Ox 96 O2 Delivery Room Air Capillary Refill : Less Than 3 Seconds General Appearance: WD/WN, no apparent distress HEENT: PERRL/EOMI, normal ENT inspection Neck: non-tender, full range of motion Respiratory: no respiratory distress, no accessory muscle use Cardiovascular: no murmur, tachycardia Gastrointestinal: normal bowel sounds, soft, tenderness Extremities: normal range of motion, non-tender Neurologic/Psychiatric: alert, normal mood/affect, oriented x 3 Skin: normal color, warm/dry Progress/Results/Core Measures Results/Orders Lab Results Laboratory Tests Test 03/19/17 12:40 03/19/17 13:27 Range/Units Urine Color YELLOW Urine Clarity CLEAR Urine pH 6 5-9 Urine Specific [place] 1.020 1.016-1.022 Urine Protein 4+ NEGATIVE Urine Glucose (UA) 4+ H NEGATIVE Urine Ketones 4+ H NEGATIVE Urine Nitrite NEGATIVE NEGATIVE Urine Bilirubin NEGATIVE NEGATIVE Urine Urobilinogen NORMAL NORMAL MG/DL Urine Leukocyte Esterase 1+ H NEGATIVE Urine RBC (Auto) 5+ H NEGATIVE Urine RBC 5-10 H /HPF Urine WBC 0-2 /HPF Urine Squamous Epithelial Cells 25-50 H /HPF Urine Crystals NONE /LPF Urine Bacteria FEW H /HPF Urine Casts NONE /LPF Urine Mucus NEGATIVE /LPF Urine Culture Indicated NO White Blood Count 10.1 4.3-11.0 10^3/uL Red Blood Count 4.00 L 4.35-5.85 10^6/uL Hemoglobin 11.0 L 11.5-16.0 G/DL Hematocrit 33 L 35-52 % Mean Corpuscular Volume 83 80-99 FL Mean Corpuscular Hemoglobin 28 25-34 PG Mean Corpuscular Hemoglobin Concent 33 32-36 G/DL Red Cell Distribution Width 14.7 H 10.0-14.5 % Platelet Count 324 130-400 10^3/uL Mean Platelet Volume 10.9 H 7.4-10.4 FL Neutrophils (%) (Auto) 81 H 42-75 % Lymphocytes (%) (Auto) 15 12-44 % Monocytes (%) (Auto) 4 0-12 % Eosinophils (%) (Auto) 0 0-10 % Basophils (%) (Auto) 0 0-10 % Neutrophils # (Auto) 8.1 H 1.8-7.8 X 10^3 Lymphocytes # (Auto) 1.5 1.0-4.0 X 10^3 Monocytes # (Auto) 0.4 0.0-1.0 X 10^3 Eosinophils # (Auto) 0.0 0.0-0.3 10^3/uL Basophils # (Auto) 0.0 0.0-0.1 10^3/uL Sodium Level 124 *L 135-145 MMOL/L Potassium Level 3.9 3.6-5.0 MMOL/L Chloride Level 92 L 98-107 MMOL/L Carbon Dioxide Level < 5 *L 21-32 MMOL/L Anion Gap 27 H 5-14 MMOL/L Blood Urea Nitrogen 4 L 7-18 MG/DL Creatinine 0.60 0.60-1.30 MG/DL Estimat Glomerular Filtration Rate > 60 BUN/Creatinine Ratio 7 Glucose Level 260 H 70-105 MG/DL Calcium Level 9.4 8.5-10.1 MG/DL Total Bilirubin 0.4 0.1-1.0 MG/DL Aspartate Amino Transf (AST/SGOT) 64 H 5-34 U/L Alanine Aminotransferase (ALT/SGPT) 12 0-55 U/L Alkaline Phosphatase 46 40-136 U/L Total Protein 14.5 H 6.4-8.2 G/DL Albumin 3.9 3.2-4.5 G/DL Lipase 102 H 8-78 U/L My Orders Orders - COURTNEY NUÑEZ APRN Cbc With Automated Diff (03/19/17 12:22) Comprehensive Metabolic Panel (03/19/17 12:22) Lipase (03/19/17 12:22) Ua Culture If Indicated (03/19/17 12:22) Urine Bedside (03/19/17 12:22) Ns Iv 1000 Ml (Sodium Chloride 0.9%) (03/19/17 12:30) Fentanyl Injection (Sublimaze Injection (03/19/17 12:30) Fentanyl Injection (Sublimaze Injection (03/19/17 14:00) Lipid Panel (03/19/17 13:57) Medications Given in ED Current Medications Medications Dose Ordered Sig/Faheem Route Start Time Stop Time Status Last Admin Dose Admin Fentanyl Citrate 50 mcg ONCE ONCE IVP 03/19/17 12:30 03/19/17 12:31 DC 03/19/17 12:42 50 MCG Fentanyl Citrate 50 mcg ONCE ONCE IVP 03/19/17 14:00 03/19/17 14:01 DC 03/19/17 13:57 50 MCG Vital Signs/I&O Vital Sign - Last 12Hours 03/19/17 12:26 Temp 97.7 Pulse 142 Resp 24 B/P (MAP) 167/111 Pulse Ox 96 O2 Delivery Room Air Departure Communication Progress Notes Given the frequent recurrence of the patient's pancreatitis (17 admissions for this) I would be interested to see if surgical resection of pancreas was an option. 1425-I discussed case with Dr. Ahumada. Lipase is minimally elevated, there be no benefit from admission here. I did hydrate her with 1 L of fluids and give 100 g of fentanyl here. We will discharge home with close follow-up with [facility]. She is not vomiting Impression Impression: Primary Impression: Pancreatitis, recurrent Additional Impression: Hypertriglyceridemia Disposition: ADMITTED INPATIENT Condition: Stable Decision to Admit Reason: Admit from ER (General) Decision to Admit/Date: Mar 19, 2017 Time/Decision to Admit Time: 12:35 Departure-Patient Inst. Decision time for Depature: 14:34 Referrals: MC ROSS MD (PCP/Family) Primary Care Physician Patient Instructions: Chronic Pancreatitis, High Cholesterol (DC) Add. Discharge Instructions: 1. Return to ER for any concerns 2. Drink plenty of fluids, check your blood sugars frequently to keep them below 200 3. Follow a diabetic diet 4. Follow-up with [facility] 5. All discharge instructions reviewed with patient and/or family. Voiced understanding. COURTNEY NUÑEZ APRN Mar 19, 2017 12:32
[2017-03-19 12:48] LABS: BILIRUBIN,URINE NEGATIVE (NEGATIVE); KETONES,URINE 4+ (NEGATIVE); LEUKOCYTE ESTERASE ,URINE 1+ (NEGATIVE); NITRITE,URINE NEGATIVE (NEGATIVE); PH,URINE 6 (5-9); PROTEIN,URINE 4+ (NEGATIVE); UROBILINOGEN,URINE NORMAL (NORMAL)
[2017-03-19 13:08] LABS: SQUAMOUS EPITHELIAL CELL,UR 25-50 /HPF; WBC,URINE 0-2 /HPF
[2017-03-19 13:51] LABS: BASOPHILS % (AUTO) 0 % (0-10); EOSINOPHILS % (AUTO) 0 % (0-10); LYMPHOCYTES # (AUTO) 1.5 X 10^3 (1.0-4.0); LYMPHOCYTES % (AUTO) 15 % (12-44); MEAN CORPUSCULAR HEMOGLOBIN 28 PG (25-34); MEAN CORPUSCULAR HGB CONC 33 G/DL (32-36); MEAN CORPUSCULAR VOLUME 83 FL (80-99); MEAN PLATELET VOLUME 10.9 FL (7.4-10.4); MONOCYTES # (AUTO) 0.4 X 10^3 (0.0-1.0); MONOCYTES % (AUTO) 4 % (0-12); NEUTROPHILS # (AUTO) 8.1 X 10^3 (1.8-7.8); NEUTROPHILS % (AUTO) 81 % (42-75); PLATELET COUNT 324 10^3/uL (130-400); RED CELL DISTRIBUTION WIDTH 14.7 % (10.0-14.5); WHITE BLOOD COUNT 10.1 10^3/uL (4.3-11.0)
[2017-03-19 13:55] LABS: ALBUMIN 3.9 G/DL (3.2-4.5); CALCIUM 9.4 MG/DL (8.5-10.1); CHLORIDE 92 MMOL/L (98-107); LIPASE 102 U/L (8-78); POTASSIUM 3.9 MMOL/L (3.6-5.0); TOTAL PROTEIN 14.5 G/DL (6.4-8.2)
[2017-03-19 13:57] LABS: SODIUM 124 MMOL/L (135-145)
[2017-03-19 14:11] LABS: BILIRUBIN,TOTAL 0.4 MG/DL (0.1-1.0); GLUCOSE 260 MG/DL (70-105)
[2017-03-19 14:16] LABS: ANION GAP 27 MMOL/L (5-14); BLOOD UREA NITROGEN 4 MG/DL (7-18); BUN/CREATININE RATIO 7; GFR ESTIMATED > 60
[2017-03-19 14:19] LABS: CARBON DIOXIDE < 5 MMOL/L (21-32)
[2017-03-19 14:32] LABS: ALANINE AMINOTRANSFERASE 12 U/L (0-55); ASPARTATE AMINO TRANSFERASE 64 U/L (5-34)
[2017-03-19 14:35] LABS: CHOLESTEROL 987 MG/DL (< 200); DIRECT LDL 49 MG/DL (1-129)
[2017-03-19 14:36] LABS: TRIGLYCERIDES 9212 MG/DL (<150); VLDL CHOLESTEROL 1842 MG/DL (5-40)
[2017-03-19 15:00] VITALS: BP 123/81
== END 2017-03-19 15:00 | disposition home or self-care (01) ==
LOC: EDUNIT# 12:17 → ER 12:19
DX: K86.1 Other chronic pancreatitis (principal); E78.1 Pure hyperglyceridemia; E11.9 Type 2 diabetes mellitus without complications; Z79.4 Long term (current) use of insulin; Z79.899 Other long term (current) drug therapy
CPT/HCPCS: 36415; 80053; 80061; 81000; 83690; 84703; 85025; 96361; 96374; 96376

== ENCOUNTER 2017-03-22 09:28 | Inpatient (IN) | payer MEDICARE ==
[~2017-03-22] VITALS: Ht 165.1 cm; Wt 65.3 kg
[~2017-03-22 09:28] MED LIST changes: +ATOR20TA66 PO
[2017-03-22 10:02] LABS: BASOPHILS % (AUTO) 0 % (0-10); EOSINOPHILS # (AUTO) 0.1 10^3/uL (0.0-0.3); EOSINOPHILS % (AUTO) 1 % (0-10); LYMPHOCYTES # (AUTO) 0.8 X 10^3 (1.0-4.0); LYMPHOCYTES % (AUTO) 9 % (12-44); MEAN CORPUSCULAR HEMOGLOBIN 29 PG (25-34); MEAN CORPUSCULAR HGB CONC 36 G/DL (32-36); MEAN CORPUSCULAR VOLUME 83 FL (80-99); MEAN PLATELET VOLUME 10.4 FL (7.4-10.4); MONOCYTES # (AUTO) 1.1 X 10^3 (0.0-1.0); MONOCYTES % (AUTO) 12 % (0-12); NEUTROPHILS # (AUTO) 7.1 X 10^3 (1.8-7.8); NEUTROPHILS % (AUTO) 78 % (42-75); PLATELET COUNT 274 10^3/uL (130-400); RED BLOOD COUNT 4.15 10^6/uL (4.35-5.85); WHITE BLOOD COUNT 9.1 10^3/uL (4.3-11.0)
[2017-03-22 10:31] LABS: ALBUMIN 3.8 G/DL (3.2-4.5); BLOOD UREA NITROGEN 5 MG/DL (7-18); BUN/CREATININE RATIO 7; CALCIUM 9.5 MG/DL (8.5-10.1); CHLORIDE 93 MMOL/L (98-107); CREATININE SERUM 0.76 MG/DL (0.60-1.30); GFR ESTIMATED > 60; GLUCOSE 336 MG/DL (70-105); LIPASE 260 U/L (8-78); POTASSIUM 4.5 MMOL/L (3.6-5.0); TOTAL PROTEIN 11.1 G/DL (6.4-8.2)
[2017-03-22 10:54] LABS: ANION GAP 21 MMOL/L (5-14); CARBON DIOXIDE 12 MMOL/L (21-32); SODIUM 126 MMOL/L (135-145)
[2017-03-22 10:58] LABS: BILIRUBIN,TOTAL 0.4 MG/DL (0.1-1.0)
[2017-03-22 10:59] LABS: ALANINE AMINOTRANSFERASE < 6 U/L (0-55); ASPARTATE AMINO TRANSFERASE 24 U/L (5-34)
--- NOTE | 2017-03-22 12:02 | ED Abdominal Pain ---
General Chief Complaint: Abdominal/GI Problems Stated Complaint: ABD PAIN Nursing Triage Note: PT C/O LUQ PAIN. PT HAS CHRONIC PANCREATITIS AND WAS IN THIS ED 3 DAYS AGO FOR SAME S/S. Sepsis Screen: No Definite Risk Source of Information: Patient Exam Limitations: No Limitations History of Present Illness Time Seen By Provider: 11:57 Initial Comments The patient is a 36-year-old white female who is well-known to this ER. She was here 3 days ago with complaints of epigastric pain. She has hypertriglyceridemia and has had multiple episodes of pancreatitis. She has been here 6 times since 12/30/16 with this complaint. She reports that after she was discharged 3 days ago she went home and continued to have rather severe pain plus nausea and occasional vomiting. She was unable to eat or drink and returns again today. She has never seen a pot feeder for this problem. Timing/Duration: Getting Worse, Intermittent Severity/Quality: Moderate, Severe Location: Periumbilical Radiation: No Radiation Activities at Onset: None Allergies and Home Medications Allergies Coded Allergies: hydromorphone (Unverified Allergy, Intermediate, PT HAS TAKEN LORTAB & OXYCODONE IN THE PAST, 01/28/17) Itching Home Medications Atorvastatin Calcium 20 Mg Tablet, 20 MG PO, (Reported) Insulin Aspart 300 Units/3 Ml Solution, 20 UNITS SQ AC for 30 Days Prescribed by: MONICA WORRELL on 01/30/17 1123 Insulin Detemir 100 Unit/1 Ml Insuln.pen, 40 UNITS SQ HS for 30 Days Prescribed by: MONICA WORRELL on 01/30/17 1123 Review of Systems Constitutional: see HPI EENTM: No Symptoms Reported Cardiovascular: No Symptoms Reported Gastrointestinal: See HPI, Abdominal Pain, Nausea, Vomiting Genitourinary: No Symptoms Reported Musculoskeletal: no symptoms reported Skin: no symptoms reported Psychiatric/Neurological: No Symptoms Reported Endocrine: No Symptoms Reported Hematologic/Lymphatic: No Symptoms Reported Past Xqitxpn-Rhvcpm-Fxawex Hx Patient Social History Alcohol Use: Denies Use Recreational Drug Use: No Smoking Status: Never a Smoker 2nd Hand Smoke Exposure: No Recent Foreign Travel: No Contact w/Someone Who Travel: No Recent Infectious Disease Expo: No Recent Hopitalizations: No Immunizations Up To Date Tetanus Booster (TDap): Unknown PED Vaccines UTD: No Date of Pneumonia Vaccine: Oct 21, 2013 Date of Influenza Vaccine: Aug 30, 2016 Seasonal Allergies Seasonal Allergies: No Surgeries HX Surgeries: Yes (DENTAL SURGERY) Surgeries: Tubal Ligation Respiratory Hx Respiratory Disorders: No Cardiovascular Hx Cardiac Disorders: Yes Cardiac Disorders: High Cholesterol Neurological Hx Neurological Disorders: No 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 System Hx 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 Disorders: No Sexually Transmitted Disease: No HIV/AIDS: No Female 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 Disorders: Denies 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 Genitourinary Hx Genitourinary Disorders: Yes Genitourinary Disorders: Bladder Infection Gastrointestinal Hx Gastrointestinal Disorders: Yes Gastrointestinal Disorders: Pancreatitis Musculoskeletal Hx Musculoskeletal Disorders: No Endocrine Hx Endocrine Disorders: Yes Endocrine Disorders: Diabetes, Insulin dep HEENT HX ENT Disorders: No Loss of Vision: Denies Hearing Impairment: Denies Cancer Hx Cancer: No Psychosocial Hx Psychiatric Problems: No Integumentary HX Skin/Integumentary Disorder: Yes (rash/warts to elbows, knees, feet) Skin/Integumentary Disorders: Recent Skin Changes Blood Transfusions Hx Blood Disorders: No Adverse Reaction to a Blood Tr: No Family Medical History Significant Family History: Heart Disease, CAD Under 55 Years Old, Diabetes, GI Disease, Hypertension Family Medial History: Cancer 03 MOTHER 09 BROTHER GRANDMOTHER Family history: Arthritis 03 MOTHER Family history: Breast disease 03 MOTHER Family history: Cardiovascular disease 03 MOTHER Family history: Diabetes mellitus 03 MOTHER 09 BROTHER GRANDMOTHER Physical Exam Vital Signs VS - Last 72 Hours, by Label 03/22/17 09:41 Temp 97.0 Pulse 134 Resp 20 B/P (MAP) 142/95 Pulse Ox 97 O2 Delivery Room Air Capillary Refill : Less Than 3 Seconds General Appearance: moderate distress HEENT: normal ENT inspection Neck: full range of motion Respiratory: chest non-tender, lungs clear, normal breath sounds, no respiratory distress, no accessory muscle use Cardiovascular: normal peripheral pulses, regular rate, rhythm, no edema, no gallop, no JVD, no murmur Gastrointestinal: other (decreased bowel sounds. 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, no motor/sensory deficits, alert, normal mood/affect, oriented x 3 Skin: normal color, warm/dry Lymphatic: no adenopathy Progress/Results/Core Measures Results/Orders Lab Results Laboratory Tests Test 03/22/17 09:55 Range/Units White Blood Count 9.1 4.3-11.0 10^3/uL Red Blood Count 4.15 L 4.35-5.85 10^6/uL Hemoglobin 12.2 11.5-16.0 G/DL Hematocrit 34 L 35-52 % Mean Corpuscular Volume 83 80-99 FL Mean Corpuscular Hemoglobin 29 25-34 PG Mean Corpuscular Hemoglobin Concent 36 32-36 G/DL Red Cell Distribution Width 14.0 10.0-14.5 % Platelet Count 274 130-400 10^3/uL Mean Platelet Volume 10.4 7.4-10.4 FL Neutrophils (%) (Auto) 78 H 42-75 % Lymphocytes (%) (Auto) 9 L 12-44 % Monocytes (%) (Auto) 12 0-12 % Eosinophils (%) (Auto) 1 0-10 % Basophils (%) (Auto) 0 0-10 % Neutrophils # (Auto) 7.1 1.8-7.8 X 10^3 Lymphocytes # (Auto) 0.8 L 1.0-4.0 X 10^3 Monocytes # (Auto) 1.1 H 0.0-1.0 X 10^3 Eosinophils # (Auto) 0.1 0.0-0.3 10^3/uL Basophils # (Auto) 0.0 0.0-0.1 10^3/uL Sodium Level 126 L 135-145 MMOL/L Potassium Level 4.5 3.6-5.0 MMOL/L Chloride Level 93 L 98-107 MMOL/L Carbon Dioxide Level 12 L 21-32 MMOL/L Anion Gap 21 H 5-14 MMOL/L Blood Urea Nitrogen 5 L 7-18 MG/DL Creatinine 0.76 0.60-1.30 MG/DL Estimat Glomerular Filtration Rate > 60 BUN/Creatinine Ratio 7 Glucose Level 336 H 70-105 MG/DL Calcium Level 9.5 8.5-10.1 MG/DL Total Bilirubin 0.4 0.1-1.0 MG/DL Aspartate Amino Transf (AST/SGOT) 24 5-34 U/L Alanine Aminotransferase (ALT/SGPT) < 6 0-55 U/L Alkaline Phosphatase 56 40-136 U/L Total Protein 11.1 H 6.4-8.2 G/DL Albumin 3.8 3.2-4.5 G/DL Lipase 260 H 8-78 U/L My Orders Orders - KIAN AKERS MD Cbc With Automated Diff (03/22/17 09:43) Comprehensive Metabolic Panel (03/22/17 09:43) Lipase (03/22/17 09:43) Ns Iv 1000 Ml (Sodium Chloride 0.9%) (03/22/17 12:15) Fentanyl Injection (Sublimaze Injection (03/22/17 12:15) Vital Signs/I&O Vital Sign - Last 12Hours 03/22/17 09:41 Temp 97.0 Pulse 134 Resp 20 B/P (MAP) 142/95 Pulse Ox 97 O2 Delivery Room Air Blood Pressure Mean: 111 Departure Communication Progress Notes The patient continued to complain of pain and temperature throughout her ER stay. He was noted by laboratory that her lipase was 102 on the and 260 today. Of other note was the serum triglyceride of 9212 and cholesterol of 97 on the . She will be admitted for pain control Impression Impression: Primary Impression: acute on chronic pancreatitis Additional Impression: severe hypertriglyceridemia Disposition: ADMITTED INPATIENT Condition: Stable/Unchanged Decision to Admit Reason: Admit from ER (General) Decision to Admit/Date: Mar 22, 2017 Time/Decision to Admit Time: 12:19 Departure-Patient Inst. Referrals: [facility] ROSS MD (PCP/Family) Primary Care Physician KIAN AKERS MD Mar 22, 2017 12:02
[2017-03-22] MEDS ORDERED: NS IV 1000 ML 1,000 ML IV SCH (12:15)
[2017-03-22] MEDS ORDERED: fentaNYL INJECTION 100 MCG/2 ML AMP IVP SCH (12:15)
[2017-03-22] MEDS ORDERED: fentaNYL PCA 300 MCG/30 ML VIAL IV PRN (12:30)
[2017-03-22 13:35] VITALS: BP 137/87
[2017-03-22] MEDS ORDERED: ONDANSETRON 4 MG/2 ML (SDV) Z0FRAN IV PRN ×2 (13:45→14:00)
[2017-03-22] MEDS ORDERED: METOCLOPRAMIDE INJ 10 MG/2 ML (REGLAN) IV PRN (13:45)
[2017-03-22] MEDS ORDERED: diphenhydrAMINE 50 MG/ML INJ (BENADRYL) IV PRN (13:45)
[2017-03-22] MEDS ORDERED: CATHETER FLUSH 10 ML SYR IV PRN (13:45)
[2017-03-22] MEDS: NS IV 1000 ML 1,000 ML IV SCH ×2 (13:51→21:38)
[2017-03-22] MEDS: fentaNYL PCA 300 MCG/30 ML VIAL IV PRN ×2 (13:54→20:15)
[2017-03-22 15:40] VITALS: BP 122/84
[2017-03-22] MEDS: inSUlin (REGULAR) HUMAN 1 UNIT/0.01 ML (CHARGE PER UNIT) SC SCH (17:49)
[2017-03-22 19:45] VITALS: BP 112/75
[2017-03-23 00:21] VITALS: BP 116/76
[2017-03-23] MEDS: inSUlin (REGULAR) HUMAN 1 UNIT/0.01 ML (CHARGE PER UNIT) SC SCH ×4 (00:22→18:05)
[2017-03-23 04:00] VITALS: BP 102/56
[2017-03-23] MEDS: NS IV 1000 ML 1,000 ML IV SCH ×3 (05:20→20:03)
[2017-03-23] MEDS: fentaNYL PCA 300 MCG/30 ML VIAL IV PRN (07:22)
[2017-03-23 08:00] VITALS: BP 114/68
[2017-03-23] MEDS: SENNA W/DOCUSATE (SENOKOT S) TABLET PO SCH (08:16)
--- NOTE | 2017-03-23 11:29 | History & Physicial (CHS) ---
HPI History of Present Illness: 36 yo F that is well known to this provider, known uncontrolled DM with recurrent pancreatitis with hypertriglyceridemia. Patient came in to ER yesterday for increasing abdominal pain and unable to tolerate PO diet. States that she has been taking her insulin but was unable to tell me a dose. States that she came to the ER last afternoon and was sent home after fluids and antiemetics. She states that she is feeling alittle bit better this AM and would like to try some clear fluids. Pain is controlled at this time. Patient sleeping comfortable in bed this AM. Source: patient, old records Exam Limitations: no limitations Date seen by provider: Mar 23, 2017 Time seen by provider: 10:15 Attending Physician Thea Ahumada DO PCP Aguila Ross MD Consult Date of Admission Mar 22, 2017 at 12:34 Home Medications Home Medications Reviewed patient Home Medication Reconciliation Form Allergies Coded Allergies: hydromorphone (Unverified Allergy, Intermediate, PT HAS TAKEN LORTAB & OXYCODONE IN THE PAST, 01/28/17) Itching LAK-Zlftyc-Pugisr Hx Patient Social History Marrital Status: Alcohol Use: Denies Use Recreational Drug Use: No Smoking Status: Never a Smoker 2nd Hand Smoke Exposure: No Recent Foreign Travel: No Contact w/other who traveled: No Recent Hopitalizations: No Recent Infectious Disease Expo: No Physical Abuse Screen: No Sexual Abuse: No Immunizations Up To Date Tetanus Booster (TDap): Unknown Date of Pneumonia Vaccine: Oct 21, 2013 Date of Influenza Vaccine: Aug 30, 2016 Past Medical History Past Medical History 1. 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 Acute on Chronic Pancreatitis (admitted >10 times ) 3. HTG- suggestive of familial hypertriglyceridemia- requires IV insulin drip with NPO during admisison to decrease with non-compliance with medications and diet 4. Poly Cystic Ovarian Syndrome 5. Iron Deficiency Anemia 6. Vit B12 Deficiency 7. Anemia requiring transfusions 8. Pseudohyponatremia due to severe hypertriglyceridemia. 9. Non-compliance with medicaitons and diet Past Surgical History 1. Tubal Ligation Family Medical History Significant Family History: Heart Disease, CAD Under 55 Years Old, Diabetes, GI Disease, Hypertension Family History: Cancer 03 MOTHER 09 BROTHER GRANDMOTHER Family history: Arthritis 03 MOTHER Family history: Breast disease 03 MOTHER Family history: Cardiovascular disease 03 MOTHER Family history: Diabetes mellitus 03 MOTHER 09 BROTHER GRANDMOTHER Review of Systems (CHC) Constitutional: No chills, No fever, malaise EENTM: no symptoms reported Respiratory: no symptoms reported, No cough, No dyspnea on exertion, No short of breath Cardiovascular: no symptoms reported, No chest pain, No edema, No palpitations Gastrointestinal: abdominal pain (RUQ), No constipation, No diarrhea, No hematemesis, loss of appetite, nausea, No vomiting Genitourinary: no symptoms reported, No dysuria, No frequency, No hematuria : No Musculoskeletal: no symptoms reported, No back pain, No joint pain, No muscle pain Skin: no symptoms reported, No pruritus, No rash Psychiatric/Neurological: No Symptoms Reported, Denies Anxiety, Denies Depressed Reviewed Test Results Reviewed Test Results Lab Laboratory Tests Test 03/22/17 09:55 03/22/17 17:38 03/23/17 00:17 03/23/17 04:45 Range/Units White Blood Count 9.1 4.3-11.0 10^3/uL Red Blood Count 4.15 L 4.35-5.85 10^6/uL Hemoglobin 12.2 11.5-16.0 G/DL Hematocrit 34 L 35-52 % Mean Corpuscular Volume 83 80-99 FL Mean Corpuscular Hemoglobin 29 25-34 PG Mean Corpuscular Hemoglobin Concent 36 32-36 G/DL Red Cell Distribution Width 14.0 10.0-14.5 % Platelet Count 274 130-400 10^3/uL Mean Platelet Volume 10.4 7.4-10.4 FL Neutrophils (%) (Auto) 78 H 42-75 % Lymphocytes (%) (Auto) 9 L 12-44 % Monocytes (%) (Auto) 12 0-12 % Eosinophils (%) (Auto) 1 0-10 % Basophils (%) (Auto) 0 0-10 % Neutrophils # (Auto) 7.1 1.8-7.8 X 10^3 Lymphocytes # (Auto) 0.8 L 1.0-4.0 X 10^3 Monocytes # (Auto) 1.1 H 0.0-1.0 X 10^3 Eosinophils # (Auto) 0.1 0.0-0.3 10^3/uL Basophils # (Auto) 0.0 0.0-0.1 10^3/uL Sodium Level 126 L 135-145 MMOL/L Potassium Level 4.5 3.6-5.0 MMOL/L Chloride Level 93 L 98-107 MMOL/L Carbon Dioxide Level 12 L 21-32 MMOL/L Anion Gap 21 H 5-14 MMOL/L Blood Urea Nitrogen 5 L 7-18 MG/DL Creatinine 0.76 0.60-1.30 MG/DL Estimat Glomerular Filtration Rate > 60 BUN/Creatinine Ratio 7 Glucose Level 336 H 70-105 MG/DL Calcium Level 9.5 8.5-10.1 MG/DL Total Bilirubin 0.4 0.1-1.0 MG/DL Aspartate Amino Transf (AST/SGOT) 24 5-34 U/L Alanine Aminotransferase (ALT/SGPT) < 6 0-55 U/L Alkaline Phosphatase 56 40-136 U/L Total Protein 11.1 H 6.4-8.2 G/DL Albumin 3.8 3.2-4.5 G/DL Lipase 260 H 165 H 8-78 U/L Glucometer 219 H 184 H 70-110 MG/DL Test 03/23/17 05:13 Range/Units Glucometer 202 H 70-110 MG/DL Laboratory Tests Test 03/22/17 17:38 03/23/17 00:17 03/23/17 04:45 03/23/17 05:13 Range/Units Glucometer 219 H 184 H 202 H 70-110 MG/DL Lipase 165 H 8-78 U/L Physical Exam-(CHC) Physical Exam Vital Signs VS - Last 72 Hours, by Label 03/22/17 03/22/17 03/22/17 03/22/17 09:41 13:20 13:35 13:54 Temp 97.0 97.0 96.0 Pulse 134 134 107 Resp 20 20 20 20 B/P (MAP) 142/95 137/87 Pulse Ox 97 97 100 O2 Delivery Room Air Room Air 03/22/17 03/22/17 03/22/17 03/22/17 13:54 15:40 18:00 19:45 Temp 97.3 98.4 Pulse 111 105 Resp 20 16 16 20 B/P (MAP) 122/84 112/75 Pulse Ox 98 98 O2 Delivery Room Air Room Air 03/22/17 03/22/17 03/22/17 03/23/17 20:15 21:00 21:00 00:21 Temp 98.7 Pulse 97 Resp 20 16 20 B/P (MAP) 116/76 Pulse Ox 97 O2 Delivery Room Air Room Air 03/23/17 03/23/17 03/23/17 03/23/17 04:00 07:22 07:49 08:00 Temp 96.5 96.9 Pulse 90 86 Resp 16 16 16 16 B/P (MAP) 102/56 114/68 Pulse Ox 97 98 O2 Delivery Room Air Room Air Capillary Refill : Less Than 3 Seconds General Appearance: WD/WN, no apparent distress HEENT: PERRL/EOMI Neck: non-tender, full range of motion, supple, normal inspection Respiratory: chest non-tender, lungs clear, normal breath sounds, no respiratory distress, no accessory muscle use Cardiovascular: normal peripheral pulses, regular rate, rhythm, no edema Gastrointestinal: normal bowel sounds, soft, tenderness (epigastric region), No mass Extremities: normal range of motion, non-tender, no pedal edema, no calf tenderness, normal capillary refill 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, no motor/sensory deficits, alert Skin: normal color, warm/dry Lymphatic: no adenopathy Assessment/Plan Assessment/Plan Plan 36 yo F with multiple comorbidities and 5 admissions since Nov for Severe Uncontrolled DM with metabolic acidosis Plan Metabolic Acidosis - Start Subcutaneous insulin and continue IV and PO fluids - Monitor Anion gap Acute on Chronic Pancreatitis - Advance to CLD, continue zofran - Start PO pain medication Uncontrolled DM - Recent A1c in Nov 10.4 will get repeat in AM - Start night insulin and continue sliding scale until able to tolerate PO diet Hypertriglyceridemia - Monitor lipids, Will restart statin when taking PO Dispo: Admit to medicine floor FEN: CLD DVT PPX: Lovenox Diagnosis/Problems: Clinical Quality Measures DVT/VTE Risk/Contraindication: Risk Factor Score Per Nursin RFS Level Per Nursing on Admit: 1=Low/No VTE PPX Copy Copies To 1: AGUILA ROSS MD, HOLLY R MD Mar 23, 2017 11:29
[2017-03-23] MEDS ORDERED: INSU100I29 SQ (11:45)
[2017-03-23] MEDS ORDERED: INSU100I14 SQ (11:45)
[2017-03-23 12:00] VITALS: BP 117/70
[2017-03-23] MEDS ORDERED: ENOXAPARIN 40 MG/0.4 ML (LOVENOX) SYR SC SCH (12:15)
[2017-03-23] MEDS: HYDROcodone/APAP 5 MG/325 MG (LORTAB) TAB PO PRN ×2 (12:56→18:05)
[2017-03-23 15:50] VITALS: BP 123/78
[2017-03-23 20:28] VITALS: BP 110/67
[2017-03-23] MEDS ORDERED: inSUlin DETERMIR 1 UNIT/0.01 ML (LEVEMIR) CHARGE PER UNIT SQ SCH (21:00)
[2017-03-24] VITALS: BP 100/68
[2017-03-24] MEDS: inSUlin (REGULAR) HUMAN 1 UNIT/0.01 ML (CHARGE PER UNIT) SC SCH ×3 (00:28→12:31)
[2017-03-24] MEDS: HYDROcodone/APAP 5 MG/325 MG (LORTAB) TAB PO PRN ×2 (00:30→08:09)
[2017-03-24 04:00] VITALS: BP 107/67
[2017-03-24] MEDS: NS IV 1000 ML 1,000 ML IV SCH (04:02)
[2017-03-24 08:00] VITALS: BP 113/69
[2017-03-24] MEDS: SENNA W/DOCUSATE (SENOKOT S) TABLET PO SCH (08:09)
[2017-03-24 09:56] LABS: ALANINE AMINOTRANSFERASE 6 U/L (0-55); ALBUMIN 3.3 G/DL (3.2-4.5); ANION GAP 13 MMOL/L (5-14); ASPARTATE AMINO TRANSFERASE 10 U/L (5-34); BILIRUBIN,TOTAL 0.2 MG/DL (0.1-1.0); BLOOD UREA NITROGEN 4 MG/DL (7-18); BUN/CREATININE RATIO 7; CALCIUM 8.7 MG/DL (8.5-10.1); CARBON DIOXIDE 18 MMOL/L (21-32); CHLORIDE 105 MMOL/L (98-107); CHOLESTEROL 626 MG/DL (< 200); CREATININE SERUM 0.54 MG/DL (0.60-1.30); DIRECT LDL 94 MG/DL (1-129); GFR ESTIMATED > 60; GLUCOSE 138 MG/DL (70-105); POTASSIUM 3.1 MMOL/L (3.6-5.0); SODIUM 136 MMOL/L (135-145); TOTAL PROTEIN 7.4 G/DL (6.4-8.2)
[2017-03-24 09:57] LABS: TRIGLYCERIDES 2114 MG/DL (<150); VLDL CHOLESTEROL 423 MG/DL (5-40)
[2017-03-24] MEDS ORDERED: KCL 20 MEQ TAB (K-DUR) PO NR (10:15)
--- NOTE | 2017-03-24 10:15 | Discharge Summary ---
Diagnosis/Chief Complaint Date of Admission Mar 22, 2017 at 12:34 Date of Discharge 03/24/17 Admission Diagnosis Admission Diagnosis Metabolic Acidosis: Resolving Acute on Chronic Pancreatitis Insulin Dependent DM: Uncontrolled Hypertriglyceridemia Hypokalemia Discharge Diagnosis See Above Chief Complaint/HPI Chief Complaint/HPI 36 yo F that is well known to this provider, known uncontrolled DM with recurrent pancreatitis with hypertriglyceridemia. Patient came in to ER yesterday for increasing abdominal pain and unable to tolerate PO diet. States that she has been taking her insulin but was unable to tell me a dose. States that she came to the ER last afternoon and was sent home after fluids and antiemetics. She states that she is feeling alittle bit better this AM and would like to try some clear fluids. Pain is controlled at this time. Patient sleeping comfortable in bed this AM. Discharge Summary-Simple/Stand Consultations Discharge Physical Examination Allergies: Coded Allergies: hydromorphone (Unverified Allergy, Intermediate, PT HAS TAKEN LORTAB & OXYCODONE IN THE PAST, 01/28/17) Itching Vitals & I&Os Vital Sign - Last 12Hours Date Time Temp Pulse Resp B/P (MAP) Pulse Ox O2 Delivery O2 Flow Rate FiO2 03/24/17 08:00 97.5 94 20 113/69 98 Room Air Intake and Output 03/24/17 00:00 Intake Total 2760 ml Output Total 3700 ml Balance -940 ml General Appearance: Alert, Oriented X3, Cooperative, No Acute Distress HEENT: Atraumatic, PERRLA, Mucous Memb Moist/[place] Respiratory: Clear to Auscultation Cardiovascular: Regular Rate, Normal S1, Normal S2, No Murmurs Abdominal: Normal Bowel Sounds, Soft, No Hepatosplenomegaly, Other (+ epigastric tenderness: improved) Extremities: No Clubbing, No Cyanosis, No Edema Skin: No Rashes Neuro: Normal Gait, Normal Speech, Strength at 5/5 X4 Ext, Sensation Intact, Cranial Nerves 3-12 NL Psych/Mental Status: Mental Status NL, Mood NL Hospital Course See final discharge diagnosis. Pending Labs None Discussion & Recommendations 36 yo F with multiple hospitalizations since Nov for uncontrolled DM and acute on chronic abdominal pain. Patient is non compliant. Discussed plan extensively with patient to help improve her ability to stay out of the hospital. Metabolic acidosis resolving with aggressive fluid hydration and insulin. Uncontrolled DM: Patient is out of insulin at home. Will send refills. Will adjust insulin because patient is not eating normal diet completely yet. Changed to Levemir 50 mg at night and NovoLog 25 units before meals. Patient endorsed some symptoms of hypoglycemia when taking previous amount. Will get her scheduled for more frequent clinic visits to help her better understand how to control her chronic medical problems. Hypertriglyceridemia: Discussed the importance of statin use to help keep level down. Discussed that when her TG level increases it sets up for her pancreatitis. Acute on Chronic Pancreatitis: Patient likely needs to see GI specialist as outpatient however patient is extremely non complaint. Discharge Condition at discharge Stable Instructions to patient/family Please see electonic discharge instructions given to patient. Discharge Medications Reviewed and agree with Discharge Medication list on patient's Discharge Instruction sheet Clinical Quality Measures DVT/VTE Risk/Contraindication: Risk Factor Score Per Nursin RFS Level Per Nursing on Admit: 1=Low/No VTE PPX Copy Copies To 1: MONICA WORRELL MD, HOLLY R MD Mar 24, 2017 10:15
[2017-03-24] MEDS ORDERED: INSU100I14 SQ (10:47)
[2017-03-24] MEDS ORDERED: METO5VIA3 IV (10:47)
[2017-03-24] MEDS ORDERED: INSU100I29 SQ (10:47)
[2017-03-24] MEDS ORDERED: ATOR80TA64 PO (10:47)
--- NOTE | 2017-03-24 10:53 | Discharge Instructions ---
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) New Medications: Atorvastatin Calcium (Lipitor) 80 Mg Tablet 80 MG PO bedtime for 30 Days, #30 TAB Metoclopramide HCl (Metoclopramide HCl) 5 Mg/1 Ml Vial 10 MG IV Q4H PRN for NAUSEA/VOMITING-1ST LINE for 30 Days, #30 VIAL Changed Medications: Insulin Aspart (Novolog Flexpen) 300 Units/3 Ml Solution 25 UNITS SQ AC for 30 Days, #30 EA (Changed from: 40 UNITS; LAST FILLED #15 ML) LAST FILLED 12/30/16 #15 ML Insulin Detemir (Levemir Flextouch) 100 Unit/1 Ml Insuln.pen 40 UNIT SQ HS for 30 Days, #30 EA (Changed from: 80 UNIT; LAST FILLED 12/30/16 # 15 ML) LAST FILLED 12/30/16 #15 ML Patient Instructions Goal/Follow Up Appt: Follow up appt on Tuesday 03/27 @ 1040am with Dr Sandhu Follow up with Dr Zheng on 04/16 @ 11am with Dr Zheng We will call you to set up your appt with Serenity Rashaad It is very important that you make your follow up appts, if you need transportation please call clinic at least 24 hrs prior to appt. Patient Instructions: Please Review your medications closely as the dosing has changed Return to The Hospital For: If unable to tolerate fluids after taking reglan and zofran Activity & Diet Discharge Diet: ADA Diet, Avoid Fatty Foods, Low Fat/Low Cholesterol Activity as Tolerated: Yes Copy Copies To 1: MONICA ZHENG MD, HOLLY R MD Mar 24, 2017 10:53
[2017-03-24 12:00] VITALS: BP 129/73
[2017-03-24 12:30] VITALS: BP 129/73
== END 2017-03-24 12:45 | disposition home or self-care (01) | DRG 439 ==
LOC: EDUNIT# 09:28 → ER 09:29 → 4TH 12:34
PROVIDERS: ADMIT Internal Medicine; ATTEND Internal Medicine
DX: K85.90 Acute pancreatitis without necrosis or infection, unspecified (principal); K86.1 Other chronic pancreatitis; E87.2 Acidosis; E11.65 Type 2 diabetes mellitus with hyperglycemia; E78.1 Pure hyperglyceridemia; E87.1 Hypo-osmolality and hyponatremia; E87.6 Hypokalemia; E78.00 Pure hypercholesterolemia, unspecified; E53.8 Deficiency of other specified B group vitamins; E28.2 Polycystic ovarian syndrome; Z91.11 Patient's noncompliance with dietary regimen; Z91.14 Patient's other noncompliance with medication regimen; Z79.4 Long term (current) use of insulin
CPT/HCPCS: 36415; 80053; 80061; 82962; 83690; 85025; 96361; 96374

== ENCOUNTER → 2017-05-15 | Emergency (ER) | payer MEDICARE ==
[~2017-05-15] VITALS: Ht 167.6 cm; Wt 67.1 kg
[~2017-05-15] MED LIST changes: +ATOR80TA64 PO; +HYDROcodone/APAP 7.5 MG/325 MG (LORTAB, LORCET PLUS) TABLET PO STA; +IOHEXOL 350 MG/ML 100 ML (OMNIPAQUE 350) VIAL IV ONE; +METO5VIA3 IV; +NS 100 ML (IVPB) BAG IV ONE; +NS IV 1000 ML 1,000 ML IV ONE; +ONDANSETRON 4 MG/2 ML (SDV) Z0FRAN IVP ONE; +[UNRECOGNIZED DRUG - CODE] MC; -[UNRECOGNIZED DRUG - CODE] MC; +fentaNYL INJECTION 100 MCG/2 ML AMP IVP STA; +inSUlin (REGULAR) HUMAN 1 UNIT/0.01 ML (CHARGE PER UNIT) IV STA
--- NOTE | 2017-05-15 22:49 | ED Abdominal Pain ---
General Chief Complaint: Abdominal/GI Problems Stated Complaint: ABDOMINAL PAIN/LOWER BACK PAIN Nursing Triage Note: Pt c/o diffuse abdominal pain x 3 days. Afebrile. Sepsis Screen: No Definite Risk Source of Information: Patient Exam Limitations: No Limitations History of Present Illness Time Seen By Provider: 22:36 Initial Comments Here with complaint of epigastric and right upper quadrant abdominal pain that radiates around to her back. This is been going on for 3 days and has worsened. States she is not really able to eat very well now. Does have some nausea but no vomiting. Reports loose stools but no diarrhea. This has significant triglyceride disorder and has frequent bouts of pancreatitis. Reports her blood sugar was about 215 this morning. Reports taking her meds as directed. Timing/Duration: 3-4 Days Severity/Quality: Moderate, Severe, Aching, Sharp Location: RUQ, Epigastric Radiation: Back Modifying Factors: Worsens With Eating, Worsens With Movement Associated Symptoms: Back Pain, No Chest Pain, No Fever/Chills, Nausea/Vomiting , No Shortness of Air, No Swelling/Mass in Abdomen, No Weakness Allergies and Home Medications Allergies Coded Allergies: hydromorphone (Unverified Allergy, Intermediate, PT HAS TAKEN LORTAB & OXYCODONE IN THE PAST, 01/28/17) Itching Home Medications Atorvastatin Calcium 80 Mg Tablet, 80 MG PO bedtime for 30 Days, #30 Prescribed by: MONICA WORRELL on 03/24/17 1047 Insulin Aspart 300 Units/3 Ml Solution, 25 UNITS SQ AC for 30 Days, #30 LAST FILLED 12/30/16 #15 ML Prescribed by: MONICA WORRELL on 03/24/17 1047 Insulin Detemir 100 Unit/1 Ml Insuln.pen, 40 UNIT SQ HS for 30 Days, #30 LAST FILLED 12/30/16 #15 ML Prescribed by: MONICA WORRELL on 03/24/17 1047 Metoclopramide HCl 5 Mg/1 Ml Vial, 10 MG IV Q4H PRN for NAUSEA/VOMITING-1ST LINE for 30 Days, #30 Prescribed by: MONICA WORRELL on 03/24/17 1047 Review of Systems Constitutional: see HPI, No chills, No fever EENTM: No Symptoms Reported Respiratory: No Symptoms Reported Cardiovascular: No Symptoms Reported Gastrointestinal: See HPI, Abdominal Pain, Nausea, Denies Vomiting Genitourinary: No Symptoms Reported, Denies Frequency, Denies Pain Musculoskeletal: see HPI, back pain, No joint pain Skin: no symptoms reported All Other Systems Reviewed Negative Unless Noted: Yes Past Qqssvfv-Ukfxwt-Zvwewv Hx Patient Social History Alcohol Use: Occasionally Uses Recreational Drug Use: No Smoking Status: Never a Smoker 2nd Hand Smoke Exposure: No Recent Foreign Travel: No Contact w/Someone Who Travel: No Recent Infectious Disease Expo: No Recent Hopitalizations: No Immunizations Up To Date Tetanus Booster (TDap): Unknown PED Vaccines UTD: No Date of Pneumonia Vaccine: Oct 21, 2013 Date of Influenza Vaccine: Aug 30, 2016 Seasonal Allergies Seasonal Allergies: No Surgeries HX Surgeries: Yes (DENTAL SURGERY) Surgeries: Tubal Ligation Respiratory Hx Respiratory Disorders: No Cardiovascular Hx Cardiac Disorders: Yes Cardiac Disorders: High Cholesterol Neurological Hx Neurological Disorders: No 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 System Hx 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 Disorders: No Sexually Transmitted Disease: No HIV/AIDS: No 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 Genitourinary Hx Genitourinary Disorders: Yes Genitourinary Disorders: Bladder Infection Gastrointestinal Hx Gastrointestinal Disorders: Yes Gastrointestinal Disorders: Pancreatitis Musculoskeletal Hx Musculoskeletal Disorders: No Endocrine Hx Endocrine Disorders: Yes Endocrine Disorders: Diabetes, Insulin dep HEENT HX ENT Disorders: No Loss of Vision: Denies Hearing Impairment: Denies Cancer Hx Cancer: No Psychosocial Hx Psychiatric Problems: No Integumentary HX Skin/Integumentary Disorder: Yes (rash/warts to elbows, knees, feet) Skin/Integumentary Disorders: Recent Skin Changes Blood Transfusions Hx Blood Disorders: No Adverse Reaction to a Blood Tr: No Reviewed Nursing Assessment Reviewed/Agree w Nursing PMH: Yes Family Medical History Significant Family History: Heart Disease, CAD Under 55 Years Old, Diabetes, GI Disease, Hypertension Family Medial History: Cancer 03 MOTHER 09 BROTHER GRANDMOTHER Family history: Arthritis 03 MOTHER Family history: Breast disease 03 MOTHER Family history: Cardiovascular disease 03 MOTHER Family history: Diabetes mellitus 03 MOTHER 09 BROTHER GRANDMOTHER Physical Exam Vital Signs VS - Last 72 Hours, by Label 05/15/17 05/16/17 22:14 00:23 Temp 97.9 97.9 Pulse 99 Resp 20 B/P (MAP) 124/89 Pulse Ox 97 O2 Delivery Room Air Capillary Refill : Less Than 3 Seconds General Appearance: WD/WN, mild distress HEENT: PERRL/EOMI, pharynx normal Neck: full range of motion, supple Respiratory: lungs clear, normal breath sounds Cardiovascular: regular rate, rhythm, no murmur Gastrointestinal: soft, No guarding, No rebound, tenderness (right upper quadrant and epigastric and to a lesser extent the rest of the abdomen.) Extremities: non-tender, normal inspection Back: normal inspection, no CVA tenderness, no vertebral tenderness Neurologic/Psychiatric: alert, oriented x 3 Skin: normal color, warm/dry Progress/Results/Core Measures Results/Orders Lab Results Laboratory Tests Test 05/15/17 22:20 05/15/17 22:44 Range/Units White Blood Count 5.9 4.3-11.0 10^3/uL Red Blood Count 4.04 L 4.35-5.85 10^6/uL Hemoglobin 13.2 11.5-16.0 G/DL Hematocrit 34 L 35-52 % Mean Corpuscular Volume 83 80-99 FL Mean Corpuscular Hemoglobin 33 25-34 PG Mean Corpuscular Hemoglobin Concent 39 H 32-36 G/DL Red Cell Distribution Width 14.4 10.0-14.5 % Platelet Count 210 130-400 10^3/uL Mean Platelet Volume 11.5 H 7.4-10.4 FL Neutrophils (%) (Auto) 61 42-75 % Lymphocytes (%) (Auto) 13 12-44 % Monocytes (%) (Auto) 25 H 0-12 % Eosinophils (%) (Auto) 1 0-10 % Basophils (%) (Auto) 0 0-10 % Neutrophils # (Auto) 3.6 1.8-7.8 X 10^3 Lymphocytes # (Auto) 0.8 L 1.0-4.0 X 10^3 Monocytes # (Auto) 1.5 H 0.0-1.0 X 10^3 Eosinophils # (Auto) 0.0 0.0-0.3 10^3/uL Basophils # (Auto) 0.0 0.0-0.1 10^3/uL Neutrophils % (Manual) 58 % Lymphocytes % (Manual) 37 % Monocytes % (Manual) 3 % Eosinophils % (Manual) 1 % Basophils % (Manual) 1 % Band Neutrophils 0 % Blood Morphology Comment NORMAL Sodium Level 121 *L 135-145 MMOL/L Potassium Level 3.8 3.6-5.0 MMOL/L Chloride Level 88 L 98-107 MMOL/L Carbon Dioxide Level < 10 *L 21-32 MMOL/L Anion Gap 23 H 5-14 MMOL/L Blood Urea Nitrogen 13 7-18 MG/DL Creatinine 0.92 0.60-1.30 MG/DL Estimat Glomerular Filtration Rate > 60 BUN/Creatinine Ratio 14 0-20 Glucose Level 391 H 70-105 MG/DL Calcium Level 9.5 8.5-10.1 MG/DL Total Bilirubin 0.4 0.1-1.0 MG/DL Aspartate Amino Transf (AST/SGOT) 9 5-34 U/L Alanine Aminotransferase (ALT/SGPT) < 30 0-55 U/L Alkaline Phosphatase 70 40-136 U/L Total Protein 13.4 H 6.4-8.2 GM/DL Albumin 4.1 3.2-4.5 GM/DL Amylase Level 27 25-125 U/L Lipase 40 8-78 U/L Serum Test, Qualitative NEGATIVE NEGATIVE Urine Color YELLOW Urine Clarity CLEAR Urine pH 6.5 5-9 Urine Specific [place] 1.010 L 1.016-1.022 Urine Protein 2+ H NEGATIVE Urine Glucose (UA) 4+ H NEGATIVE Urine Ketones 2+ H NEGATIVE Urine Nitrite NEGATIVE NEGATIVE Urine Bilirubin NEGATIVE NEGATIVE Urine Urobilinogen NORMAL NORMAL MG/DL Urine Leukocyte Esterase 1+ H NEGATIVE Urine RBC (Auto) NEGATIVE NEGATIVE Urine RBC NONE /HPF Urine WBC 0-2 /HPF Urine Squamous Epithelial Cells RARE /HPF Urine Crystals NONE /LPF Urine Bacteria NONE /HPF Urine Casts NONE /LPF Urine Mucus NEGATIVE /LPF Urine Culture Indicated NO My Orders Orders - MARY DOMÍNGUEZ MD Saline Lock/Iv-Start (05/15/17 22:42) Ns Iv 1000 Ml (Sodium Chloride 0.9%) (05/15/17 22:42) Amylase (05/15/17 22:42) Cbc With Automated Diff (05/15/17 22:42) Comprehensive Metabolic Panel (05/15/17 22:42) Hcg,Qualitative Serum (05/15/17 22:42) Lipase (05/15/17 22:42) Ua Culture If Indicated (05/15/17 22:42) Fentanyl Injection (Sublimaze Injection (05/15/17 22:42) Ondansetron Injection (Zofran Injectio (05/15/17 22:45) Manual Differential (05/15/17 22:20) Ct Abdomen/Pelvis W (05/16/17 00:14) Ns Iv 1000 Ml (Sodium Chloride 0.9%) (05/16/17 00:14) Fentanyl Injection (Sublimaze Injection (05/16/17 00:14) Insulin (Regular) Human (Humulin R (Per (05/16/17 00:14) Iohexol Injection (Omnipaque 350 Mg/Ml 1 (05/16/17 00:45) Ns (Ivpb) (Sodium Chloride 0.9% Ivpb Bag (05/16/17 00:45) Hydrocodone/Apap 7.5/325 Tab (Lortab 7. (05/16/17 01:32) Accucheck Stat ONCE (05/16/17 01:32) Medications Given in ED Current Medications Medications Dose Ordered Sig/Faheem Route Start Time Stop Time Status Last Admin Dose Admin Iohexol 100 ml ONCE ONCE IV 05/16/17 00:45 05/16/17 01:13 DC 05/16/17 00:47 100 ML Ondansetron HCl 4 mg ONCE ONCE IVP 05/15/17 22:45 05/15/17 22:46 DC 05/15/17 22:55 4 MG Sodium Chloride 80 ml ONCE ONCE IV 05/16/17 00:45 05/16/17 01:13 DC 05/16/17 00:47 80 ML Sodium Chloride 1,000 ml @ 0 mls/hr Q0M ONCE IV 05/15/17 22:42 05/15/17 22:44 DC 05/15/17 22:58 0 MLS/HR Sodium Chloride 1,000 ml @ 0 mls/hr Q0M ONCE IV 05/16/17 00:14 05/16/17 00:15 DC 05/16/17 00:22 999 MLS/HR Vital Signs/I&O Vital Sign - Last 12Hours 05/15/17 05/16/17 22:14 00:23 Temp 97.9 97.9 Pulse 99 Resp 20 B/P (MAP) 124/89 Pulse Ox 97 O2 Delivery Room Air Blood Pressure Mean: 101 Progress Note : Progress Note Seen and evaluated. IV, labs, normal saline 1 L bolus, fentanyl 75 g IV and Zofran 4 mg IV. UA ordered. Monitor patient. Pain continued. Fentanyl [address] abdomen and pelvis ordered. 0130: No acute findings on CT. Patient has continued pain but there are no acute findings overall side from blood sugar. She has her insulin dosing at home and she will take that when she gets there. Hydrocodone 7.5 one tab by mouth given. Discharged home with return precautions. Patient verbalize understanding instructions and agreement with plan. Diagnostic Imaging Diagonstic Imaging: CT Plain Films/CT/US/NM/MRI: abdomen, pelvis Comments No acute abdominal or pelvic abnormality. Reviewed: Reviewed Night [facility] Study Departure Impression Impression: Primary Impression: Epigastric abdominal pain Disposition: HOME, SELF-CARE Condition: Stable Departure-Patient Inst. Decision time for Depature: 01:35 Referrals: [facility] ROSS MD (PCP/Family) Primary Care Physician Patient Instructions: Acute Abdomen (Belly Pain), Adult (DC) Add. Discharge Instructions: All discharge instructions reviewed with patient and/or family. Voiced understanding. Clear liquid diet for 24 hours and then advance as tolerated. Follow-up with your doctor in 1 day for recheck and further evaluation. Return for worse pain , fever, vomiting, weakness, breathing problems or other concerns as needed. You may take Tylenol or ibuprofen per package directions as needed for pain control. MARY DOMÍNGUEZ MD May 15, 2017 22:49
[2017-05-15 22:51] LABS: BASOPHILS % (AUTO) 0 % (0-10); EOSINOPHILS % (AUTO) 1 % (0-10); LYMPHOCYTES # (AUTO) 0.8 X 10^3 (1.0-4.0); LYMPHOCYTES % (AUTO) 13 % (12-44); MEAN CORPUSCULAR HEMOGLOBIN 33 PG (25-34); MEAN CORPUSCULAR HGB CONC 39 G/DL (32-36); MEAN CORPUSCULAR VOLUME 83 FL (80-99); MEAN PLATELET VOLUME 11.5 FL (7.4-10.4); MONOCYTES # (AUTO) 1.5 X 10^3 (0.0-1.0); MONOCYTES % (AUTO) 25 % (0-12); NEUTROPHILS # (AUTO) 3.6 X 10^3 (1.8-7.8); NEUTROPHILS % (AUTO) 61 % (42-75); PLATELET COUNT 210 10^3/uL (130-400); RED BLOOD COUNT 4.04 10^6/uL (4.35-5.85); RED CELL DISTRIBUTION WIDTH 14.4 % (10.0-14.5); WHITE BLOOD COUNT 5.9 10^3/uL (4.3-11.0)
[2017-05-15 22:52] LABS: BILIRUBIN,URINE NEGATIVE (NEGATIVE); KETONES,URINE 2+ (NEGATIVE); LEUKOCYTE ESTERASE ,URINE 1+ (NEGATIVE); NITRITE,URINE NEGATIVE (NEGATIVE); PH,URINE 6.5 (5-9); PROTEIN,URINE 2+ (NEGATIVE); UROBILINOGEN,URINE NORMAL (NORMAL)
[2017-05-15 23:04] LABS: SQUAMOUS EPITHELIAL CELL,UR RARE /HPF; WBC,URINE 0-2 /HPF
[2017-05-15 23:13] LABS: ALANINE AMINOTRANSFERASE < 30 U/L (0-55); ALBUMIN 4.1 GM/DL (3.2-4.5); AMYLASE 27 U/L (25-125); ANION GAP 23 MMOL/L (5-14); BILIRUBIN,TOTAL 0.4 MG/DL (0.1-1.0); BLOOD UREA NITROGEN 13 MG/DL (7-18); BUN/CREATININE RATIO 14 (0-20); CALCIUM 9.5 MG/DL (8.5-10.1); CHLORIDE 88 MMOL/L (98-107); CREATININE SERUM 0.92 MG/DL (0.60-1.30); GFR ESTIMATED > 60; GLUCOSE 391 MG/DL (70-105); HEMOLYSIS 54 (-100-29); ICTERUS 3.7 (-100-1.9); LIPASE 40 U/L (8-78); LIPEMIA 1410 (-100-49); POTASSIUM 3.8 MMOL/L (3.6-5.0); TOTAL PROTEIN 13.4 GM/DL (6.4-8.2)
[2017-05-15 23:15] LABS: SODIUM 121 MMOL/L (135-145)
[2017-05-15 23:16] LABS: BAND NEUTROPHILS 0 %; BASOPHILS % (MANUAL) 1 %; CARBON DIOXIDE < 10 MMOL/L (21-32); EOSINOPHILS % (MANUAL) 1 %; LYMPHOCYTES % (MANUAL) 37 %; NEUTROPHILS % (MANUAL) 58 %
[2017-05-15 23:17] LABS: ASPARTATE AMINO TRANSFERASE 9 U/L (5-34)
[2017-05-16 01:52] VITALS: BP 113/72
--- NOTE | 2017-05-16 07:00 | Diagnostic Imaging Report ---
PROCEDURE: CT abdomen and pelvis with contrast. TECHNIQUE: Multiple contiguous axial images were obtained through the abdomen and pelvis after administration of intravenous contrast. INDICATION: Epigastric pain. FINDINGS: The previous CT abdomen/pelvis exam of 02/07/2017 noted inflammation of the soft tissues about the head of the pancreas. This appearance did suggest pancreatitis. On this study, the inflammatory changes about the pancreas seen previously are no longer evident. There is no clear evidence for an acute pancreatitis. Even so, correlation with the patient's pancreatic enzymes would be recommended. The overall appearance of the abdomen and pelvis has not changed significantly otherwise. The liver is enlarged measuring 23 cm in length. The liver is also of lower density than usually seen. This does suggest fatty metamorphosis. The spleen is prominent but not enlarged. The stomach is filled with particulate matter and consequently difficult to evaluate. The gallbladder, the adrenals, the kidneys, the aorta and the inferior vena cava show no sign of an acute abnormality. The images through the pelvis show that the uterus is at the upper limits of normal or slightly enlarged. On the prior exam, there was a roughly 4 cm cyst associated with the left ovary. This has resolved; however, there still appears to be another left ovarian cyst measuring roughly 3.5 cm. There may be a 2.2 cm cyst in the right ovary as well. If further evaluation of the pelvic contents is desired, then ultrasound will be recommended. The appendix is not well visualized, but there are no indirect signs of acute appendicitis. The urinary bladder is grossly unremarkable. The bone windows show no evidence for a fracture or for a destructive lesion. The lung bases are clear. IMPRESSION: 1. There is no distortion of the peripancreatic fat to suggest acute pancreatitis. Correlation with the patient's pancreatic enzyme levels would be recommended, however. 2. No other acute abnormality of the abdomen or pelvis is noted. 3. There are bilateral ovarian cysts. If further study is desired, then ultrasound will be recommended. 4. The stomach is filled with particulate matter. Dictated by: Dictated on workstation # [id number]
== END ==
LOC: EDUNIT# 22:10 → ER 22:13
DX: R10.13 Epigastric pain (principal); E11.9 Type 2 diabetes mellitus without complications; Z32.02 Encounter for pregnancy test, result negative; Z79.4 Long term (current) use of insulin; Z98.51 Tubal ligation status; Z87.19 Personal history of other diseases of the digestive system
CPT/HCPCS: 36415; 74177; 80053; 81000; 82150; 82962; 83690; 84703; 85007; 85027

== ENCOUNTER 2017-06-05 14:59 | Emergency (ER) | payer MEDICARE ==
[~2017-06-05] VITALS: Ht 167.6 cm; Wt 68.0 kg
[~2017-06-05 14:59] MED LIST changes: -HYDROcodone/APAP 7.5 MG/325 MG (LORTAB, LORCET PLUS) TABLET PO STA; -IOHEXOL 350 MG/ML 100 ML (OMNIPAQUE 350) VIAL IV ONE; -NS 100 ML (IVPB) BAG IV ONE; -NS IV 1000 ML 1,000 ML IV ONE; -ONDANSETRON 4 MG/2 ML (SDV) Z0FRAN IVP ONE; -fentaNYL INJECTION 100 MCG/2 ML AMP IVP STA; -inSUlin (REGULAR) HUMAN 1 UNIT/0.01 ML (CHARGE PER UNIT) IV STA
[2017-06-05] MEDS ORDERED: NS IV 1000 ML 1,000 ML IV SCH (16:45)
--- NOTE | 2017-06-05 16:47 | ED Abdominal Pain ---
General Chief Complaint: Abdominal/GI Problems Stated Complaint: ABD PAIN/N/V Nursing Triage Note: C/O ABD PAIN STARTED @ 2 DAYS AGO. SHARP PAIN. WORSE AFTER EATING. VOMITTED 2X Sepsis Screen: No Definite Risk Source of Information: Patient Exam Limitations: No Limitations History of Present Illness Time Seen By Provider: 16:45 Initial Comments To ER with reports of generalized abdominal pain in the epigastric area that began 2 days ago. Patient states that she feels generally poorly for the past few days. She denies fevers or chills and states that her blood sugars have been running in the 200 range. She has a history of chronic pancreatitis secondary to familial hyperlipidemia. However, the patient does not manage this because up off the care reports that she has not filled her Lipitor since January of this year. They also report that she has not picked up her NovoLog or Levemir since March 24 of this year. 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 Timing/Duration: 1-2 Days Severity/Quality: Moderate Location: Epigastric, Generalized Abdomen Radiation: No Radiation Activities at Onset: None Associated Symptoms: Nausea/Vomiting Allergies and Home Medications Allergies Coded Allergies: hydromorphone (Unverified Allergy, Intermediate, PT HAS TAKEN LORTAB & OXYCODONE IN THE PAST, 01/28/17) Itching Home Medications Atorvastatin Calcium 80 Mg Tablet, 80 MG PO bedtime for 30 Days, #30 Prescribed by: MONICA WORRELL on 03/24/17 1047 Insulin Aspart 300 Units/3 Ml Solution, 25 UNITS SQ AC for 30 Days, #30 LAST FILLED 12/30/16 #15 ML Prescribed by: MONICA WORRELL on 03/24/17 1047 Insulin Detemir 100 Unit/1 Ml Insuln.pen, 40 UNIT SQ HS for 30 Days, #30 LAST FILLED 12/30/16 #15 ML Prescribed by: MONICA WORRELL on 03/24/17 1047 Review of Systems Constitutional: see HPI EENTM: No Symptoms Reported Respiratory: No Symptoms Reported Cardiovascular: No Symptoms Reported Gastrointestinal: See HPI, Abdominal Pain, Nausea Genitourinary: No Symptoms Reported Musculoskeletal: no symptoms reported Skin: no symptoms reported Psychiatric/Neurological: No Symptoms Reported Endocrine: No Symptoms Reported Hematologic/Lymphatic: No Symptoms Reported Past Stvojmn-Ywxfxz-Hhzkmr Hx Patient Social History Alcohol Use: Rarely Uses Recreational Drug Use: No Smoking Status: Never a Smoker 2nd Hand Smoke Exposure: No Recent Foreign Travel: No Contact w/Someone Who Travel: No Recent Infectious Disease Expo: No Recent Hopitalizations: No Immunizations Up To Date Tetanus Booster (TDap): Unknown PED Vaccines UTD: No Date of Pneumonia Vaccine: Oct 21, 2013 Date of Influenza Vaccine: Aug 30, 2016 Seasonal Allergies Seasonal Allergies: No Surgeries HX Surgeries: Yes (DENTAL SURGERY) Surgeries: Tubal Ligation Respiratory Hx Respiratory Disorders: No Cardiovascular Hx Cardiac Disorders: Yes Cardiac Disorders: High Cholesterol Neurological Hx Neurological Disorders: No 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 System Hx 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 Disorders: No Sexually Transmitted Disease: No HIV/AIDS: No Female 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 Disorders: Denies [employer]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 Genitourinary Hx Genitourinary Disorders: Yes Genitourinary Disorders: Bladder Infection Gastrointestinal Hx Gastrointestinal Disorders: Yes Gastrointestinal Disorders: Pancreatitis Musculoskeletal Hx Musculoskeletal Disorders: No Endocrine Hx Endocrine Disorders: Yes Endocrine Disorders: Diabetes, Insulin dep HEENT HX ENT Disorders: No Loss of Vision: Denies Hearing Impairment: Denies Cancer Hx Cancer: No Psychosocial Hx Psychiatric Problems: No Integumentary HX Skin/Integumentary Disorder: Yes (rash/warts to elbows, knees, feet) Skin/Integumentary Disorders: Recent Skin Changes Blood Transfusions Hx Blood Disorders: No Adverse Reaction to a Blood Tr: No Family Medical History Significant Family History: Heart Disease, CAD Under 55 Years Old, Diabetes, GI Disease, Hypertension Family Medial History: Cancer 03 MOTHER 09 BROTHER GRANDMOTHER Family history: Arthritis 03 MOTHER Family history: Breast disease 03 MOTHER Family history: Cardiovascular disease 03 MOTHER Family history: Diabetes mellitus 03 MOTHER 09 BROTHER GRANDMOTHER Physical Exam Vital Signs VS - Last 72 Hours, by Label 06/05/17 16:02 Temp 98.0 Pulse 109 Resp 20 B/P (MAP) 127/70 Pulse Ox 96 O2 Delivery Room Air Capillary Refill : Less Than 3 Seconds General Appearance: WD/WN, no apparent distress, other (chronically ill and appears much older than her stated age) HEENT: PERRL/EOMI, normal ENT inspection Neck: non-tender, full range of motion Respiratory: normal breath sounds, no respiratory distress, no accessory muscle use Cardiovascular: regular rate, rhythm, no murmur Gastrointestinal: normal bowel sounds, soft, tenderness Extremities: normal range of motion, non-tender Pelvic: normal external exam Neurologic/Psychiatric: alert, normal mood/affect, oriented x 3 Skin: normal color, warm/dry Progress/Results/Core Measures Results/Orders Lab Results Laboratory Tests Test 06/05/17 16:43 06/05/17 17:00 Range/Units Urine Color YELLOW Urine Clarity CLEAR Urine pH 6 5-9 Urine Specific [place] 1.020 1.016-1.022 Urine Protein 3+ H NEGATIVE Urine Glucose (UA) 4+ H NEGATIVE Urine Ketones 3+ H NEGATIVE Urine Nitrite NEGATIVE NEGATIVE Urine Bilirubin NEGATIVE NEGATIVE Urine Urobilinogen NORMAL NORMAL MG/DL Urine Leukocyte Esterase 2+ H NEGATIVE Urine RBC (Auto) 5+ H NEGATIVE Urine RBC 0-2 /HPF Urine WBC 2-5 /HPF Urine Squamous Epithelial Cells >50 H /HPF Urine Crystals NONE /LPF Urine Bacteria NEGATIVE /HPF Urine Casts NONE /LPF Urine Mucus NEGATIVE /LPF Urine Culture Indicated NO White Blood Count 5.3 4.3-11.0 10^3/uL Red Blood Count 4.38 4.35-5.85 10^6/uL Hemoglobin 11.8 11.5-16.0 G/DL Hematocrit 36 35-52 % Mean Corpuscular Volume 83 80-99 FL Mean Corpuscular Hemoglobin 27 25-34 PG Mean Corpuscular Hemoglobin Concent 33 32-36 G/DL Red Cell Distribution Width 14.9 H 10.0-14.5 % Platelet Count 202 130-400 10^3/uL Mean Platelet Volume 11.0 H 7.4-10.4 FL Neutrophils (%) (Auto) 59 42-75 % Lymphocytes (%) (Auto) 35 12-44 % Monocytes (%) (Auto) 6 0-12 % Eosinophils (%) (Auto) 0 0-10 % Basophils (%) (Auto) 0 0-10 % Neutrophils # (Auto) 3.1 1.8-7.8 X 10^3 Lymphocytes # (Auto) 1.8 1.0-4.0 X 10^3 Monocytes # (Auto) 0.3 0.0-1.0 X 10^3 Eosinophils # (Auto) 0.0 0.0-0.3 10^3/uL Basophils # (Auto) 0.0 0.0-0.1 10^3/uL Sodium Level 136 135-145 MMOL/L Potassium Level 3.8 3.6-5.0 MMOL/L Chloride Level 99 98-107 MMOL/L Carbon Dioxide Level 24 21-32 MMOL/L Anion Gap 13 5-14 MMOL/L Blood Urea Nitrogen 9 7-18 MG/DL Creatinine 0.71 0.60-1.30 MG/DL Estimat Glomerular Filtration Rate > 60 BUN/Creatinine Ratio 13 Glucose Level 257 H 70-105 MG/DL Calcium Level 9.4 8.5-10.1 MG/DL Total Bilirubin 0.6 0.1-1.0 MG/DL Aspartate Amino Transf (AST/SGOT) 12 5-34 U/L Alanine Aminotransferase (ALT/SGPT) 14 0-55 U/L Alkaline Phosphatase 48 40-136 U/L Total Protein 8.4 H 6.4-8.2 GM/DL Albumin 4.1 3.2-4.5 GM/DL Lipase 14 8-78 U/L My Orders Orders - COURTNEY NUÑEZ APRN Cbc With Automated Diff (06/05/17 16:38) Lipase (06/05/17 16:38) Ua Culture If Indicated (06/05/17 16:38) Comprehensive Metabolic Panel (06/05/17 16:38) Ns Iv 1000 Ml (Sodium Chloride 0.9%) (06/05/17 16:45) Accucheck Stat ONCE (06/05/17 16:38) Saline Lock/Iv-Start (06/05/17 16:52) Vital Signs/I&O Vital Sign - Last 12Hours 06/05/17 16:02 Temp 98.0 Pulse 109 Resp 20 B/P (MAP) 127/70 Pulse Ox 96 O2 Delivery Room Air Blood Pressure Mean: 89 Departure Impression Impression: Primary Impression: Chronic abdominal pain Disposition: 01 HOME, SELF-CARE Condition: Stable Departure-Patient Inst. Decision time for Depature: 17:29 Referrals: [facility] MD (PCP/Family) Primary Care Physician Patient Instructions: NO INSTRUCTIONS GIVEN Add. Discharge Instructions: All discharge instructions reviewed with patient and/or family. Voiced understanding. COURTNEY NUÑEZ APRN Jun 05, 2017 16:47
[2017-06-05 16:53] LABS: BILIRUBIN,URINE NEGATIVE (NEGATIVE); KETONES,URINE 3+ (NEGATIVE); LEUKOCYTE ESTERASE ,URINE 2+ (NEGATIVE); NITRITE,URINE NEGATIVE (NEGATIVE); PH,URINE 6 (5-9); PROTEIN,URINE 3+ (NEGATIVE); UROBILINOGEN,URINE NORMAL (NORMAL)
[2017-06-05 17:05] LABS: BASOPHILS % (AUTO) 0 % (0-10); EOSINOPHILS % (AUTO) 0 % (0-10); LYMPHOCYTES # (AUTO) 1.8 X 10^3 (1.0-4.0); LYMPHOCYTES % (AUTO) 35 % (12-44); MEAN CORPUSCULAR HEMOGLOBIN 27 PG (25-34); MEAN CORPUSCULAR HGB CONC 33 G/DL (32-36); MEAN CORPUSCULAR VOLUME 83 FL (80-99); MONOCYTES # (AUTO) 0.3 X 10^3 (0.0-1.0); MONOCYTES % (AUTO) 6 % (0-12); NEUTROPHILS # (AUTO) 3.1 X 10^3 (1.8-7.8); NEUTROPHILS % (AUTO) 59 % (42-75); PLATELET COUNT 202 10^3/uL (130-400); RED BLOOD COUNT 4.38 10^6/uL (4.35-5.85); RED CELL DISTRIBUTION WIDTH 14.9 % (10.0-14.5); WHITE BLOOD COUNT 5.3 10^3/uL (4.3-11.0)
[2017-06-05 17:10] LABS: SQUAMOUS EPITHELIAL CELL,UR >50 /HPF
[2017-06-05 17:26] LABS: ALANINE AMINOTRANSFERASE 14 U/L (0-55); ALBUMIN 4.1 GM/DL (3.2-4.5); ANION GAP 13 MMOL/L (5-14); ASPARTATE AMINO TRANSFERASE 12 U/L (5-34); BILIRUBIN,TOTAL 0.6 MG/DL (0.1-1.0); BLOOD UREA NITROGEN 9 MG/DL (7-18); BUN/CREATININE RATIO 13; CALCIUM 9.4 MG/DL (8.5-10.1); CARBON DIOXIDE 24 MMOL/L (21-32); CHLORIDE 99 MMOL/L (98-107); CREATININE SERUM 0.71 MG/DL (0.60-1.30); GFR ESTIMATED > 60; GLUCOSE 257 MG/DL (70-105); LIPASE 14 U/L (8-78); POTASSIUM 3.8 MMOL/L (3.6-5.0); SODIUM 136 MMOL/L (135-145); TOTAL PROTEIN 8.4 GM/DL (6.4-8.2)
[2017-06-05 17:38] VITALS: BP 127/70
== END 2017-06-05 17:38 | disposition home or self-care (01) ==
LOC: EDUNIT# 14:59 → ER 15:01
DX: R10.13 Epigastric pain (principal); R10.84 Generalized abdominal pain; G89.29 Other chronic pain; E78.5 Hyperlipidemia, unspecified; E78.00 Pure hypercholesterolemia, unspecified; E11.9 Type 2 diabetes mellitus without complications; Z82.49 Family history of ischemic heart disease and other diseases of the circulatory system; Z98.51 Tubal ligation status; Z79.4 Long term (current) use of insulin; Z87.19 Personal history of other diseases of the digestive system
CPT/HCPCS: 36415; 80053; 81000; 82962; 83690; 85025; 96360

== ENCOUNTER 2017-07-27 18:40 | Inpatient (IN) | payer MEDICARE ==
[~2017-07-27] VITALS: Ht 160 cm; Wt 61.7 kg
[2017-07-27] MEDS ORDERED: fentaNYL INJECTION 100 MCG/2 ML AMP IVP STA ×2 (18:52→19:47)
[2017-07-27] MEDS ORDERED: NS IV 1000 ML 1,000 ML IV ONE ×2 (18:52→19:47)
[2017-07-27] MEDS ORDERED: ONDANSETRON 4 MG/2 ML (SDV) Z0FRAN IVP ONE ×2 (19:00→22:00)
[2017-07-27] MEDS ORDERED: FAMOTIDINE 20MG/2ML IV (PEPCID) IVP ONE (19:00)
--- NOTE | 2017-07-27 19:04 | ED Abdominal Pain ---
General Chief Complaint: Abdominal/GI Problems Stated Complaint: VOMITING Nursing Triage Note: c/o vomiting and abd pain. Onset this afternoon. Sepsis Screen: No Definite Risk Source of Information: Patient Exam Limitations: No Limitations History of Present Illness Time Seen By Provider: 18:57 Initial Comments Presents for N/V and epigastric pain that started this afternoon. Hx of Pancreatitis. Not on enzymes. took motrin for the pain with minimal relief. She has been modifiying diet and used to constantly have this problem but it is much less freq and her weight went from 130- up to 170#. She does not drink ETOH. No traumatic Hx. No Hepatitis. only abd surgery was BTL. No fevers or chuills. Normal BM yesterday. on levemir 80u HS and Novolog 35-45 TID. She has not been taking her insulin as much lately because she cannot afford it. Allergies and Home Medications Allergies Coded Allergies: hydromorphone (Unverified Allergy, Intermediate, PT HAS TAKEN LORTAB & OXYCODONE IN THE PAST, 01/28/17) Itching Home Medications Atorvastatin Calcium 80 Mg Tablet, 80 MG PO bedtime for 30 Days, #30 Prescribed by: MONICA WORRELL on 03/24/17 1047 Insulin Aspart 300 Units/3 Ml Solution, 25 UNITS SQ AC for 30 Days, #30 LAST FILLED 12/30/16 #15 ML Prescribed by: MONICA WORRELL on 03/24/17 1047 Insulin Detemir 100 Unit/1 Ml Insuln.pen, 40 UNIT SQ HS for 30 Days, #30 LAST FILLED 12/30/16 #15 ML Prescribed by: MONICA WORRELL on 03/24/17 1047 Review of Systems Constitutional: No chills, No diaphoresis, No fever EENTM: No Eye Pain, No Ear Pain Respiratory: Denies Cough, Denies Shortness of Air Cardiovascular: Denies Chest Pain, Denies Lightheadedness Gastrointestinal: See HPI, Abdominal Pain, Denies Constipated, Denies Diarrhea , Nausea, Vomiting Genitourinary: Denies Burning, Denies Discharge Musculoskeletal: No back pain, No joint pain Skin: No pruritus, No rash Psychiatric/Neurological: Denies Headache, Denies Numbness, Denies Paresthesia Past Janizbr-Oujzyy-Hvhzxz Hx Patient Social History Alcohol Use: Occasionally Uses Number of Drinks Today: AA Alcohol Beverage of Choice: Beer Recreational Drug Use: No Smoking Status: Never a Smoker 2nd Hand Smoke Exposure: No Recent Foreign Travel: No Contact w/Someone Who Travel: No Recent Infectious Disease Expo: No Recent Hopitalizations: No Immunizations Up To Date Tetanus Booster (TDap): Unknown PED Vaccines UTD: No Date of Pneumonia Vaccine: Oct 21, 2013 Date of Influenza Vaccine: Aug 30, 2016 Seasonal Allergies Seasonal Allergies: No Surgeries History of Surgeries: Yes (DENTAL SURGERY) Surgeries: Tubal Ligation Respiratory History of Respiratory Disorde: No Cardiovascular History of Cardiac Disorders: Yes Cardiac Disorders: High Cholesterol Neurological History of Neurological Disord: No 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 System Hx 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 Disorders: No Sexually Transmitted Disease: No HIV/AIDS: No Female 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 Disorders: 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 Genitourinary History of Genitourinary Disor: No Genitourinary Disorders: Bladder Infection Gastrointestinal History of Gastrointestinal Di: Yes (MULTIPLE ER VISITS AND ADMISSIONS FOR PANCREATITIS) Gastrointestinal Disorders: Pancreatitis Musculoskeletal History of Musculoskeletal Dis: No Endocrine History of Endocrine Disorders: Yes Endocrine Disorders: Diabetes, Insulin dep HEENT History of HEENT Disorders: No Loss of Vision: Denies Hearing Impairment: Denies Cancer History of Cancer: No Psychosocial History of Psychiatric Problem: No Integumentary History of Skin or Integumenta: Yes (rash/warts to elbows, knees, feet) Skin/Integumentary Disorders: Recent Skin Changes Blood Transfusions History of Blood Disorders: No Adverse Reaction to a Blood Tr: No Family Medical History Significant Family History: Heart Disease, CAD Under 55 Years Old, Diabetes, GI Disease, Hypertension Family Medial History: Cancer 03 MOTHER 09 BROTHER GRANDMOTHER Family history: Arthritis 03 MOTHER Family history: Breast disease 03 MOTHER Family history: Cardiovascular disease 03 MOTHER Family history: Diabetes mellitus 03 MOTHER 09 BROTHER GRANDMOTHER Physical Exam Vital Signs VS - Last 72 Hours, by Label 07/27/17 18:50 Temp 96.8 B/P (MAP) 132/115 Pulse Ox 98 O2 Delivery Room Air Capillary Refill : Less Than 3 Seconds General Appearance: WD/WN, moderate distress, thin HEENT: PERRL/EOMI, pharynx normal Neck: non-tender, normal inspection Respiratory: chest non-tender, lungs clear, normal breath sounds, no respiratory distress Cardiovascular: normal peripheral pulses, regular rate, rhythm, no edema, no murmur Peripheral Pulses: 2+ Dorsalis Pedis (R), 2+ Left Dors-Pedis (L) Gastrointestinal: normal bowel sounds, no organomegaly, no pulsatile mass, guarding, tenderness (epigastric and RUQ. Medina's positive. ) Extremities: non-tender, normal inspection, no pedal edema, normal capillary refill Back: normal inspection, no CVA tenderness, no vertebral tenderness Neurologic/Psychiatric: no motor/sensory deficits, alert, oriented x 3 Skin: normal color, warm/dry Focused Exam Evaluation Lactate Level Laboratory Tests 07/27/17 19:14: Lactic Acid Level 2.66*H Lactic Acid Level Laboratory Tests Test 07/27/17 19:14 Lactic Acid Level 2.66 MMOL/L (0.50-2.00) *H Progress/Results/Core Measures Results/Orders Lab Results Laboratory Tests Test 07/27/17 19:00 07/27/17 19:14 07/27/17 19:19 07/27/17 20:07 Range/Units White Blood Count 18.8 H 4.3-11.0 10^3/uL Red Blood Count 4.82 4.35-5.85 10^6/uL Hemoglobin 14.2 11.5-16.0 G/DL Hematocrit 41 35-52 % Mean Corpuscular Volume 85 80-99 FL Mean Corpuscular Hemoglobin 30 25-34 PG Mean Corpuscular Hemoglobin Concent 35 32-36 G/DL Red Cell Distribution Width 14.9 H 10.0-14.5 % Platelet Count 374 130-400 10^3/uL Mean Platelet Volume 11.1 H 7.4-10.4 FL Neutrophils (%) (Auto) 79 H 42-75 % Lymphocytes (%) (Auto) 12 12-44 % Monocytes (%) (Auto) 10 0-12 % Eosinophils (%) (Auto) 0 0-10 % Basophils (%) (Auto) 0 0-10 % Neutrophils # (Auto) 14.8 H 1.8-7.8 X 10^3 Lymphocytes # (Auto) 2.2 1.0-4.0 X 10^3 Monocytes # (Auto) 1.8 H 0.0-1.0 X 10^3 Eosinophils # (Auto) 0.0 0.0-0.3 10^3/uL Basophils # (Auto) 0.0 0.0-0.1 10^3/uL Neutrophils % (Manual) 84 % Lymphocytes % (Manual) 13 % Monocytes % (Manual) 3 % Blood Morphology Comment NORMAL Sodium Level 128 L 135-145 MMOL/L Potassium Level 4.9 3.6-5.0 MMOL/L Chloride Level 93 L 98-107 MMOL/L Carbon Dioxide Level 6 *L 21-32 MMOL/L Anion Gap 29 H 5-14 MMOL/L Blood Urea Nitrogen 21 H 7-18 MG/DL Creatinine 1.47 H 0.60-1.30 MG/DL Estimat Glomerular Filtration Rate 40 BUN/Creatinine Ratio 14 Glucose Level 554 *H 70-105 MG/DL Calcium Level 10.6 H 8.5-10.1 MG/DL Magnesium Level 3.2 H 1.8-2.4 MG/DL Total Bilirubin 0.2 0.1-1.0 MG/DL Aspartate Amino Transf (AST/SGOT) 29 5-34 U/L Alanine Aminotransferase (ALT/SGPT) 11 0-55 U/L Alkaline Phosphatase 41 40-136 U/L Total Protein 11.3 H 6.4-8.2 GM/DL Albumin 4.5 3.2-4.5 GM/DL Triglycerides Level 4457 H <150 MG/DL Cholesterol Level 970 H < 200 MG/DL LDL Cholesterol Direct 53 1-129 MG/DL VLDL Cholesterol 891 H 5-40 MG/DL HDL Cholesterol 33 L 40-60 MG/DL Lipase 430 H 8-78 U/L Lactic Acid Level 2.66 *H 0.50-2.00 MMOL/L Urine Color YELLOW Urine Clarity CLEAR Urine pH 6 5-9 Urine Specific [place] 1.025 H 1.016-1.022 Urine Protein 3+ H NEGATIVE Urine Glucose (UA) 4+ H NEGATIVE Urine Ketones 4+ H NEGATIVE Urine Nitrite NEGATIVE NEGATIVE Urine Bilirubin NEGATIVE NEGATIVE Urine Urobilinogen NORMAL NORMAL MG/DL Urine Leukocyte Esterase NEGATIVE NEGATIVE Urine RBC (Auto) 2+ H NEGATIVE Urine RBC 2-5 H /HPF Urine WBC NONE /HPF Urine Squamous Epithelial Cells RARE /HPF Urine Crystals NONE /LPF Urine Bacteria NONE /HPF Urine Casts NONE /LPF Urine Mucus NEGATIVE /LPF Urine Culture Indicated NO Urine Opiates Screen NEGATIVE NEGATIVE Urine Oxycodone Screen NEGATIVE NEGATIVE Urine Methadone Screen NEGATIVE NEGATIVE Urine Propoxyphene Screen NEGATIVE NEGATIVE Urine Barbiturates Screen NEGATIVE NEGATIVE Ur Tricyclic Antidepressants Screen NEGATIVE NEGATIVE Urine Phencyclidine Screen NEGATIVE NEGATIVE Urine Amphetamines Screen NEGATIVE NEGATIVE Urine Methamphetamines Screen NEGATIVE NEGATIVE Urine Benzodiazepines Screen NEGATIVE NEGATIVE Urine Cocaine Screen NEGATIVE NEGATIVE Urine Cannabinoids Screen NEGATIVE NEGATIVE Blood Gas Puncture Site LEFT RADIAL Blood Gas Patient Temperature 97.1 Arterial Blood pH 7.22 *L 7.37-7.43 Arterial Blood Partial Pressure CO2 23 L 35-45 MMHG Arterial Blood Partial Pressure O2 107 H 79-93 MMHG Arterial Blood HCO3 9 *L 23-27 MMOL/L Arterial Blood Total CO2 10.2 L 21.0-31.0 MMOL/L Arterial Blood Oxygen Saturation 98 94-100 % Arterial Blood Base Excess -16.9 L -2.5-2.5 MMOL/L Bay Test YES-POS Blood Gas Ventilator Setting NO Blood Gas Inspired Oxygen RA Test 07/27/17 20:50 Range/Units Prothrombin Time 13.1 12.2-14.7 SEC INR Comment 1.0 0.8-1.4 Activated Partial Thromboplast Time 29 24-35 SEC My Orders Orders - FRANDY BATISTA Drug Screen Stat (Urine) (07/27/17 18:52) Lactic Acid Analyzer (07/27/17 18:52) Magnesium (07/27/17 18:52) Fentanyl Injection (Sublimaze Injection (07/27/17 18:52) Saline Lock/Iv-Start (07/27/17 18:52) Ns Iv 1000 Ml (Sodium Chloride 0.9%) (07/27/17 18:52) Ondansetron Injection (Zofran Injectio (07/27/17 19:00) Famotidine Injection (Pepcid Injection) (07/27/17 19:00) Ns Iv 1000 Ml (Sodium Chloride 0.9%) (07/27/17 19:00) Ct Abdomen/Pelvis W (07/27/17 19:09) Arterial Blood Gas (07/27/17 19:47) Fentanyl Injection (Sublimaze Injection (07/27/17 19:47) Ns Iv 1000 Ml (Sodium Chloride 0.9%) (07/27/17 19:47) Blood Culture (07/27/17 20:28) Sputum Culture (07/27/17 20:28) Protime With Inr (07/27/17 20:28) Partial Thromboplastin Time (8/28/17 20:28) Saline Lock/Iv-Start (07/27/17 20:28) Vital Signs Adult Sepsis Patie Q1HR (07/27/17 20:28) Remove Rings In Anticipation O (07/27/17 20:28) Fentanyl Injection (Sublimaze Injection (07/27/17 21:00) Insulin (Regular) Human (Humulin R (Per (07/27/17 21:30) Medications Given in ED Current Medications Medications Dose Ordered Sig/Faheem Route Start Time Stop Time Status Last Admin Dose Admin Famotidine 20 mg ONCE ONCE IVP 07/27/17 19:00 07/27/17 19:01 DC 07/27/17 19:13 20 MG Fentanyl Citrate 25 mcg ONCE ONCE IVP 07/27/17 21:00 07/27/17 21:02 DC 07/27/17 21:05 25 MCG Iohexol 100 ml ONCE ONCE IV 07/27/17 19:30 07/27/17 19:31 DC 07/27/17 19:28 100 ML Ondansetron HCl 4 mg ONCE ONCE IVP 07/27/17 19:00 07/27/17 19:01 DC 07/27/17 19:11 4 MG Sodium Chloride 100 ml ONCE ONCE IV 07/27/17 19:30 07/27/17 19:31 DC 07/27/17 19:28 80 ML Sodium Chloride 1,000 ml @ 0 mls/hr Q0M ONCE IV 07/27/17 18:52 07/27/17 18:57 DC 07/27/17 19:15 1,000 MLS/HR Vital Signs/I&O Vital Sign - Last 12Hours 07/27/17 18:50 Temp 96.8 B/P (MAP) 132/115 Pulse Ox 98 O2 Delivery Room Air Blood Pressure Mean: 121 Progress Note #1: Time: 19:06 Progress Note IVF, Pepcid IV, Lipase and labs. Likely this is pancreatitis. Will get a CT abd to look for CBD obstruction. Progress Note #2: Time: 19:50 Progress Note pt is acidotic and has a BG 550's. Will get ketones and ABG. Adding a second liter of IVF. mIVF at 3 ml/kg/hour. Trigs are 4000. DKA? Definitely Hypertrig Pancreatitis. Diagnostic Imaging Diagonstic Imaging: CT Plain Films/CT/US/NM/MRI: abdomen, pelvis (with contrast) Comments VIA [facility], [facility]. [place], [place] NAME: DEENA THOMAS [facility] REC#: [id number] PT STATUS: REG ER : 1980 PHYSICIAN: FRANDY BATISTA MD ADMIT DATE: 07/27/17/ER Draft Date of Exam:07/27/17 CT ABDOMEN/PELVIS W PROCEDURE: CT abdomen and pelvis with contrast. TECHNIQUE: Multiple contiguous axial images were obtained through the abdomen and pelvis after administration of intravenous contrast. INDICATION: Upper abdominal pain with nausea and emesis. COMPARISON is made to study of 05/16/2017. FINDINGS: Low-density is again seen throughout the liver indicating steatosis. No focal hepatic or splenic lesion is identified. There may be mild edema and/or inflammation surrounding the pancreas along the body adjacent to the posterior wall of the stomach. No definable fluid collection is seen. There is no evidence of gallbladder inflammation or biliary ductal dilatation. No adrenal gland or renal abnormality is seen. There is no evidence of free fluid in the abdomen or pelvis. No pathologically enlarged adenopathy is identified. There is an approximately 4.0 x 3.3 cm cyst in the left adnexal region. IMPRESSION: Continued hepatic steatosis. There is edema and/or inflammation around the body of the pancreas suggesting pancreatitis and clinical correlation is recommended. Otherwise, no acute abnormality or adverse change is seen. Dominant cyst in the left adnexal region is again noted. Dictated on workstation # [id number] Dict: 07/27/171943 Trans: 07/27/171948 [facility] [id number] Interpreted by: JEREMY VILLASENOR MD Electronically signed by: Reviewed: Reviewed by Me Departure Communication (Admissions) Time/Spoke to Admitting Phy: 21:15 Communication Discussed the case with Dr. Queen as well as imaging, electrolytes, fluids given and plan to give 10 units regular insulin. She is okay with this as well as using the DKA order set. She would like to have eICU consult. She will see the patient. 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 Referrals: [facility] ROSS MD (PCP/Family) Primary Care Physician Copy Copies To 1: CARA HILL DO; [facility] ROS[facility] MD, TITUS J Jul 27, 2017 19:04
[2017-07-27 19:07] LABS: BASOPHILS % (AUTO) 0 % (0-10); EOSINOPHILS % (AUTO) 0 % (0-10); LYMPHOCYTES # (AUTO) 2.2 X 10^3 (1.0-4.0); LYMPHOCYTES % (AUTO) 12 % (12-44); MEAN CORPUSCULAR HEMOGLOBIN 30 PG (25-34); MEAN CORPUSCULAR HGB CONC 35 G/DL (32-36); MEAN CORPUSCULAR VOLUME 85 FL (80-99); MEAN PLATELET VOLUME 11.1 FL (7.4-10.4); MONOCYTES # (AUTO) 1.8 X 10^3 (0.0-1.0); MONOCYTES % (AUTO) 10 % (0-12); NEUTROPHILS # (AUTO) 14.8 X 10^3 (1.8-7.8); NEUTROPHILS % (AUTO) 79 % (42-75); PLATELET COUNT 374 10^3/uL (130-400); RED BLOOD COUNT 4.82 10^6/uL (4.35-5.85); RED CELL DISTRIBUTION WIDTH 14.9 % (10.0-14.5); WHITE BLOOD COUNT 18.8 10^3/uL (4.3-11.0)
[2017-07-27 19:21] LABS: LYMPHOCYTES % (MANUAL) 13 %; NEUTROPHILS % (MANUAL) 84 %
[2017-07-27 19:29] LABS: BILIRUBIN,URINE NEGATIVE (NEGATIVE); KETONES,URINE 4+ (NEGATIVE); LEUKOCYTE ESTERASE ,URINE NEGATIVE (NEGATIVE); NITRITE,URINE NEGATIVE (NEGATIVE); PH,URINE 6 (5-9); PROTEIN,URINE 3+ (NEGATIVE); UROBILINOGEN,URINE NORMAL (NORMAL)
[2017-07-27] MEDS ORDERED: IOHEXOL 350 MG/ML 100 ML (OMNIPAQUE 350) VIAL IV ONE (19:30)
[2017-07-27] MEDS ORDERED: NS 100 ML (IVPB) BAG IV ONE (19:30)
[2017-07-27 19:37] LABS: SQUAMOUS EPITHELIAL CELL,UR RARE /HPF
[2017-07-27 19:38] LABS: ALBUMIN 4.5 GM/DL (3.2-4.5); BILIRUBIN,TOTAL 0.2 MG/DL (0.1-1.0); CALCIUM 10.6 MG/DL (8.5-10.1); CREATININE SERUM 1.47 MG/DL (0.60-1.30); MAGNESIUM 3.2 MG/DL (1.8-2.4); POTASSIUM 4.9 MMOL/L (3.6-5.0); TOTAL PROTEIN 11.3 GM/DL (6.4-8.2)
--- NOTE | 2017-07-27 19:50 | Diagnostic Imaging Report ---
PROCEDURE: CT abdomen and pelvis with contrast. TECHNIQUE: Multiple contiguous axial images were obtained through the abdomen and pelvis after administration of intravenous contrast. INDICATION: Upper abdominal pain with nausea and emesis. COMPARISON is made to study of 05/16/2017. FINDINGS: Low-density is again seen throughout the liver indicating steatosis. No focal hepatic or splenic lesion is identified. There may be mild edema and/or inflammation surrounding the pancreas along the body adjacent to the posterior wall of the stomach. No definable fluid collection is seen. There is no evidence of gallbladder inflammation or biliary ductal dilatation. No adrenal gland or renal abnormality is seen. There is no evidence of free fluid in the abdomen or pelvis. No pathologically enlarged adenopathy is identified. There is an approximately 4.0 x 3.3 cm cyst in the left adnexal region. IMPRESSION: Continued hepatic steatosis. There is edema and/or inflammation around the body of the pancreas suggesting pancreatitis and clinical correlation is recommended. Otherwise, no acute abnormality or adverse change is seen. Dominant cyst in the left adnexal region is again noted. Dictated by: Dictated on workstation # [id number]
[2017-07-27 20:25] LABS: ABG BASE EXCESS -16.9 MMOL/L (-2.5-2.5); ABG OXYGEN SATURATION 98 % (94-100); ABG PCO2 23 MMHG (35-45); ABG PO2 107 MMHG (79-93); ABG TCO2 10.2 MMOL/L (21.0-31.0)
[2017-07-27 20:26] LABS: ABG HCO3 9 MMOL/L (23-27); ABG PH 7.22 (7.37-7.43); ALLENS TEST YES-POS
[2017-07-27 20:27] LABS: PATIENT TEMP 97.1
[2017-07-27] MEDS ORDERED: fentaNYL INJECTION 100 MCG/2 ML AMP IVP ONE ×2 (21:00→22:00)
[2017-07-27 21:09] LABS: PROTHROMBIN TIME PATIENT 13.1 SEC (12.2-14.7)
[2017-07-27] MEDS ORDERED: inSUlin (REGULAR) HUMAN 1 UNIT/0.01 ML (CHARGE PER UNIT) SC ONE (21:30)
[2017-07-27 23:19] VITALS: BP 134/96
[2017-07-27] MEDS ORDERED: 1/2 NS W/KCL 20 MEQ/L 1,000 ML IV ONE (23:19)
[2017-07-27] MEDS ORDERED: NORMAL SALINE 250 ML ONE (23:24)
[2017-07-27 23:30] VITALS: BP 130/91
[2017-07-27] MEDS: fentaNYL INJECTION 100 MCG/2 ML AMP IVP PRN (23:41)
[2017-07-27 23:43] LABS: CALCIUM 9.4 MG/DL (8.5-10.1); CREATININE SERUM 1.23 MG/DL (0.60-1.30); POTASSIUM 3.6 MMOL/L (3.6-5.0)
[2017-07-27 23:45] VITALS: BP 128/87
[2017-07-28] VITALS (25 sets, daily range): BP systolic 92–134; BP diastolic 60–96
[2017-07-28] MEDS: 1/2 NS W/KCL 20 MEQ/L 1,000 ML IV SCH ×5 (00:26→19:54)
[2017-07-28] MEDS ORDERED: inSUlin REGULAR TPN/DRIP ONLY 250 UNITS in NORMAL SALINE 250 ML IV SCH (00:30)
[2017-07-28] MEDS: ONDANSETRON 4 MG/2 ML (SDV) Z0FRAN IV PRN ×2 (01:06→05:36)
[2017-07-28 01:28] LABS: CALCIUM 9.2 MG/DL (8.5-10.1); CREATININE SERUM 1.14 MG/DL (0.60-1.30); POTASSIUM 3.6 MMOL/L (3.6-5.0)
[2017-07-28] MEDS: fentaNYL INJECTION 100 MCG/2 ML AMP IVP PRN ×6 (01:42→11:37)
[2017-07-28] MEDS: D5 1/2 NS W/KCL 20 MEQ/L 1,000 ML IV SCH ×6 (03:18→19:54)
[2017-07-28 05:34] LABS: BASOPHILS % (AUTO) 0 % (0-10); EOSINOPHILS % (AUTO) 0 % (0-10); LYMPHOCYTES # (AUTO) 1.3 X 10^3 (1.0-4.0); LYMPHOCYTES % (AUTO) 13 % (12-44); MEAN CORPUSCULAR HEMOGLOBIN 29 PG (25-34); MEAN CORPUSCULAR HGB CONC 35 G/DL (32-36); MEAN CORPUSCULAR VOLUME 85 FL (80-99); MEAN PLATELET VOLUME 10.9 FL (7.4-10.4); MONOCYTES # (AUTO) 0.9 X 10^3 (0.0-1.0); MONOCYTES % (AUTO) 9 % (0-12); NEUTROPHILS # (AUTO) 7.8 X 10^3 (1.8-7.8); NEUTROPHILS % (AUTO) 78 % (42-75); PLATELET COUNT 243 10^3/uL (130-400); RED BLOOD COUNT 4.28 10^6/uL (4.35-5.85); RED CELL DISTRIBUTION WIDTH 15.2 % (10.0-14.5); WHITE BLOOD COUNT 10.1 10^3/uL (4.3-11.0)
[2017-07-28 06:01] LABS: ANION GAP 11 MMOL/L (5-14); BLOOD UREA NITROGEN 12 MG/DL (7-18); BUN/CREATININE RATIO 13; CALCIUM 8.8 MG/DL (8.5-10.1); CARBON DIOXIDE 16 MMOL/L (21-32); CHLORIDE 106 MMOL/L (98-107); CREATININE SERUM 0.93 MG/DL (0.60-1.30); GFR ESTIMATED > 60; GLUCOSE 238 MG/DL (70-105); MAGNESIUM 2.4 MG/DL (1.8-2.4); POTASSIUM 3.9 MMOL/L (3.6-5.0); SODIUM 133 MMOL/L (135-145)
[2017-07-28 06:04] LABS: PHOSPHORUS 0.8 MG/DL (2.3-4.7)
[2017-07-28] MEDS ORDERED: SODIUM PHOSPHATE INJ 30 MM in NS (IVPB) 250 ML INJ ONE (07:00)
--- NOTE | 2017-07-28 07:54 | Diagnostic Imaging Report ---
INDICATION: Chronic pancreatitis. Comparison made to prior examination 09/30/2016. FINDINGS: The heart size is normal. Lungs are clear. There is no pleural effusion or pneumothorax. IMPRESSION: No acute cardiopulmonary abnormality. Dictated by: Dictated on workstation # [id number]
[2017-07-28] MEDS ORDERED: IBUP-1780 PO (08:41)
[2017-07-28] MEDS ORDERED: PRD20T PO (08:41)
[2017-07-28] MEDS ORDERED: LISI10TA2 PO (08:41)
[2017-07-28] MEDS ORDERED: DICL75TA2 PO (08:41)
[2017-07-28] MEDS ORDERED: CYCL10TA9 PO (08:41)
[2017-07-28 09:21] LABS: LIPASE 575 U/L (8-78)
[2017-07-28 09:32] LABS: TRIGLYCERIDES 3387 MG/DL (<150)
[2017-07-28] MEDS: FAMOTIDINE 20MG/2ML IV (PEPCID) IVP SCH ×2 (10:25→21:00)
[2017-07-28] MEDS: NS IV 1000 ML 1,000 ML IV SCH ×3 (10:59→21:00)
--- NOTE | 2017-07-28 11:36 | History & Physicial ([facility]) ---
HPI History of Present Illness: 37 yo female presented to ER with vomiting and severe abdominal pain. She has had multiple episodes of hypertriglyceridemia with pancreatitis and was concerned this was occurring again. She is frustrated because she has been watching her diet and exercising and has lost weight and thought she was doing well. However, she has not been taking any medications because she cannot afford them. She denies diarrhea, hematemesis or fever. Source: patient Date seen by provider: Jul 28, 2017 Time Seen by Provider: 09:30 Attending Physician Emilia Queen MD PCP Aguila Sandhu MD Consult Date of Admission Jul 27, 2017 at 21:27 Home Medications Home Medications Reviewed patient Home Medication Reconciliation Form Allergies Coded Allergies: hydromorphone (Unverified Allergy, Intermediate, PT HAS TAKEN LORTAB & OXYCODONE IN THE PAST, 01/28/17) Itching HLS-Yqrxav-Mjtexd Hx Patient Social History Alcohol Use: Occasionally Uses Recreational Drug Use: No Smoking Status: Never a Smoker 2nd Hand Smoke Exposure: No Recent Foreign Travel: No Contact w/other who traveled: No Recent Hopitalizations: No Recent Infectious Disease Expo: No Physical Abuse Screen: No Sexual Abuse: No Immunizations Up To Date Tetanus Booster (TDap): Unknown Date of Pneumonia Vaccine: Oct 21, 2013 Date of Influenza Vaccine: Aug 30, 2016 Past Medical History Past Medical History 1. Diabetes Mellitus -II non-compliant with medications and diet 2. Acute on Chronic Pancreatitis (admitted >10 times ) 3. HTG- suggestive of familial hypertriglyceridemia- requires IV insulin drip with NPO during admisison to decrease with non-compliance with medications and diet 4. Poly Cystic Ovarian Syndrome 5. Iron Deficiency Anemia 6. Vit B12 Deficiency 7. Anemia requiring transfusions 8. Pseudohyponatremia due to severe hypertriglyceridemia. 9. Non-compliance with medicaitons and diet Past Surgical History 1. Tubal Ligation Family Medical History Significant Family History: Heart Disease, CAD Under 55 Years Old, Diabetes, GI Disease, Hypertension Family History: Cancer 03 MOTHER 09 BROTHER GRANDMOTHER Family history: Arthritis 03 MOTHER Family history: Breast disease 03 MOTHER Family history: Cardiovascular disease 03 MOTHER Family history: Diabetes mellitus 03 MOTHER 09 BROTHER GRANDMOTHER Review of Systems ([facility]) Constitutional: No fever EENTM: no symptoms reported Respiratory: no symptoms reported Cardiovascular: no symptoms reported Gastrointestinal: see HPI Genitourinary: No dysuria Musculoskeletal: back pain Skin: no symptoms reported Psychiatric/Neurological: No Symptoms Reported Reviewed Test Results Reviewed Test Results Lab Laboratory Tests Test 07/27/17 19:00 07/27/17 19:14 07/27/17 19:19 07/27/17 20:07 Range/Units White Blood Count 18.8 H 4.3-11.0 10^3/uL Red Blood Count 4.82 4.35-5.85 10^6/uL Hemoglobin 14.2 11.5-16.0 G/DL Hematocrit 41 35-52 % Mean Corpuscular Volume 85 80-99 FL Mean Corpuscular Hemoglobin 30 25-34 PG Mean Corpuscular Hemoglobin Concent 35 32-36 G/DL Red Cell Distribution Width 14.9 H 10.0-14.5 % Platelet Count 374 130-400 10^3/uL Mean Platelet Volume 11.1 H 7.4-10.4 FL Neutrophils (%) (Auto) 79 H 42-75 % Lymphocytes (%) (Auto) 12 12-44 % Monocytes (%) (Auto) 10 0-12 % Eosinophils (%) (Auto) 0 0-10 % Basophils (%) (Auto) 0 0-10 % Neutrophils # (Auto) 14.8 H 1.8-7.8 X 10^3 Lymphocytes # (Auto) 2.2 1.0-4.0 X 10^3 Monocytes # (Auto) 1.8 H 0.0-1.0 X 10^3 Eosinophils # (Auto) 0.0 0.0-0.3 10^3/uL Basophils # (Auto) 0.0 0.0-0.1 10^3/uL Neutrophils % (Manual) 84 % Lymphocytes % (Manual) 13 % Monocytes % (Manual) 3 % Blood Morphology Comment NORMAL Sodium Level 128 L 135-145 MMOL/L Potassium Level 4.9 3.6-5.0 MMOL/L Chloride Level 93 L 98-107 MMOL/L Carbon Dioxide Level 6 *L 21-32 MMOL/L Anion Gap 29 H 5-14 MMOL/L Blood Urea Nitrogen 21 H 7-18 MG/DL Creatinine 1.47 H 0.60-1.30 MG/DL Estimat Glomerular Filtration Rate 40 BUN/Creatinine Ratio 14 Glucose Level 554 *H 70-105 MG/DL Hemoglobin A1c 7.8 H 4.5-6.2 % Calcium Level 10.6 H 8.5-10.1 MG/DL Magnesium Level 3.2 H 1.8-2.4 MG/DL Total Bilirubin 0.2 0.1-1.0 MG/DL Aspartate Amino Transf (AST/SGOT) 29 5-34 U/L Alanine Aminotransferase (ALT/SGPT) 11 0-55 U/L Alkaline Phosphatase 41 40-136 U/L Total Protein 11.3 H 6.4-8.2 GM/DL Albumin 4.5 3.2-4.5 GM/DL Triglycerides Level 4457 H <150 MG/DL Cholesterol Level 970 H < 200 MG/DL LDL Cholesterol Direct 53 1-129 MG/DL VLDL Cholesterol 891 H 5-40 MG/DL HDL Cholesterol 33 L 40-60 MG/DL Lipase 430 H 8-78 U/L Lactic Acid Level 2.66 *H 0.50-2.00 MMOL/L Urine Color YELLOW Urine Clarity CLEAR Urine pH 6 5-9 Urine Specific [place] 1.025 H 1.016-1.022 Urine Protein 3+ H NEGATIVE Urine Glucose (UA) 4+ H NEGATIVE Urine Ketones 4+ H NEGATIVE Urine Nitrite NEGATIVE NEGATIVE Urine Bilirubin NEGATIVE NEGATIVE Urine Urobilinogen NORMAL NORMAL MG/DL Urine Leukocyte Esterase NEGATIVE NEGATIVE Urine RBC (Auto) 2+ H NEGATIVE Urine RBC 2-5 H /HPF Urine WBC NONE /HPF Urine Squamous Epithelial Cells RARE /HPF Urine Crystals NONE /LPF Urine Bacteria NONE /HPF Urine Casts NONE /LPF Urine Mucus NEGATIVE /LPF Urine Culture Indicated NO Urine Opiates Screen NEGATIVE NEGATIVE Urine Oxycodone Screen NEGATIVE NEGATIVE Urine Methadone Screen NEGATIVE NEGATIVE Urine Propoxyphene Screen NEGATIVE NEGATIVE Urine Barbiturates Screen NEGATIVE NEGATIVE Ur Tricyclic Antidepressants Screen NEGATIVE NEGATIVE Urine Phencyclidine Screen NEGATIVE NEGATIVE Urine Amphetamines Screen NEGATIVE NEGATIVE Urine Methamphetamines Screen NEGATIVE NEGATIVE Urine Benzodiazepines Screen NEGATIVE NEGATIVE Urine Cocaine Screen NEGATIVE NEGATIVE Urine Cannabinoids Screen NEGATIVE NEGATIVE Blood Gas Puncture Site LEFT RADIAL Blood Gas Patient Temperature 97.1 Arterial Blood pH 7.22 *L 7.37-7.43 Arterial Blood Partial Pressure CO2 23 L 35-45 MMHG Arterial Blood Partial Pressure O2 107 H 79-93 MMHG Arterial Blood HCO3 9 *L 23-27 MMOL/L Arterial Blood Total CO2 10.2 L 21.0-31.0 MMOL/L Arterial Blood Oxygen Saturation 98 94-100 % Arterial Blood Base Excess -16.9 L -2.5-2.5 MMOL/L [place] Test YES-POS Blood Gas Ventilator Setting NO Blood Gas Inspired Oxygen RA Test 07/27/17 20:50 07/27/17 21:40 07/27/17 21:52 07/27/17 23:17 Range/Units Prothrombin Time 13.1 12.2-14.7 SEC INR Comment 1.0 0.8-1.4 Activated Partial Thromboplast Time 29 24-35 SEC Lactic Acid Level 1.84 0.50-2.00 MMOL/L Glucometer 439 *H 70-110 MG/DL Sodium Level 131 L 135-145 MMOL/L Potassium Level 3.6 3.6-5.0 MMOL/L Chloride Level 100 98-107 MMOL/L Carbon Dioxide Level 8 *L 21-32 MMOL/L Anion Gap 23 H 5-14 MMOL/L Blood Urea Nitrogen 17 7-18 MG/DL Creatinine 1.23 0.60-1.30 MG/DL Estimat Glomerular Filtration Rate 49 BUN/Creatinine Ratio 14 Glucose Level 415 *H 70-105 MG/DL Calcium Level 9.4 8.5-10.1 MG/DL Test 07/27/17 23:21 07/28/17 00:57 07/28/17 01:04 07/28/17 02:06 Range/Units Glucometer 417 *H 342 H 323 H 70-110 MG/DL Sodium Level 134 L 135-145 MMOL/L Potassium Level 3.6 3.6-5.0 MMOL/L Chloride Level 104 98-107 MMOL/L Carbon Dioxide Level 10 L 21-32 MMOL/L Anion Gap 20 H 5-14 MMOL/L Blood Urea Nitrogen 14 7-18 MG/DL Creatinine 1.14 0.60-1.30 MG/DL Estimat Glomerular Filtration Rate 54 BUN/Creatinine Ratio 12 Glucose Level 333 H 70-105 MG/DL Calcium Level 9.2 8.5-10.1 MG/DL Test 07/28/17 03:08 07/28/17 04:08 07/28/17 05:06 07/28/17 05:08 Range/Units Glucometer 236 H 255 H 252 H 70-110 MG/DL White Blood Count 10.1 4.3-11.0 10^3/uL Red Blood Count 4.28 L 4.35-5.85 10^6/uL Hemoglobin 12.6 11.5-16.0 G/DL Hematocrit 37 35-52 % Mean Corpuscular Volume 85 80-99 FL Mean Corpuscular Hemoglobin 29 25-34 PG Mean Corpuscular Hemoglobin Concent 35 32-36 G/DL Red Cell Distribution Width 15.2 H 10.0-14.5 % Platelet Count 243 130-400 10^3/uL Mean Platelet Volume 10.9 H 7.4-10.4 FL Neutrophils (%) (Auto) 78 H 42-75 % Lymphocytes (%) (Auto) 13 12-44 % Monocytes (%) (Auto) 9 0-12 % Eosinophils (%) (Auto) 0 0-10 % Basophils (%) (Auto) 0 0-10 % Neutrophils # (Auto) 7.8 1.8-7.8 X 10^3 Lymphocytes # (Auto) 1.3 1.0-4.0 X 10^3 Monocytes # (Auto) 0.9 0.0-1.0 X 10^3 Eosinophils # (Auto) 0.0 0.0-0.3 10^3/uL Basophils # (Auto) 0.0 0.0-0.1 10^3/uL Sodium Level 133 L 135-145 MMOL/L Potassium Level 3.9 3.6-5.0 MMOL/L Chloride Level 106 98-107 MMOL/L Carbon Dioxide Level 16 L 21-32 MMOL/L Anion Gap 11 5-14 MMOL/L Blood Urea Nitrogen 12 7-18 MG/DL Creatinine 0.93 0.60-1.30 MG/DL Estimat Glomerular Filtration Rate > 60 BUN/Creatinine Ratio 13 Glucose Level 238 H 70-105 MG/DL Calcium Level 8.8 8.5-10.1 MG/DL Phosphorus Level 0.8 *L 2.3-4.7 MG/DL Magnesium Level 2.4 1.8-2.4 MG/DL Test 07/28/17 06:05 07/28/17 07:00 Range/Units Glucometer 247 H 70-110 MG/DL Phosphorus Level < 0.7 *L 2.3-4.7 MG/DL Triglycerides Level 3387 H <150 MG/DL Lipase 575 H 8-78 U/L Radiology CT abdomen 07/27: " IMPRESSION: Continued hepatic steatosis. There is edema and/ or inflammation around the body of the pancreas suggesting pancreatitis and clinical correlation is recommended. Otherwise, no acute abnormality or adverse change is seen. Dominant cyst in the left adnexal region is again noted. " Physical Exam-([facility]) Physical Exam Vital Signs VS - Last 72 Hours, by Label 07/27/17 07/27/17 07/27/17 07/27/17 18:50 23:00 23:05 23:19 Temp 96.8 96.8 96.9 Pulse 135 129 Resp 20 16 B/P (MAP) 132/115 134/96 Pulse Ox 98 99 100 99 O2 Delivery Room Air Room Air Room Air Room Air 07/27/17 07/27/17 07/27/17 07/28/17 23:19 23:30 23:45 00:00 Pulse 134 131 114 Resp 15 12 B/P (MAP) 130/91 128/87 Pulse Ox 100 100 100 O2 Delivery Room Air Room Air Room Air 07/28/17 07/28/17 07/28/17 07/28/17 00:00 00:15 00:30 00:45 Pulse 110 112 112 134 Resp 16 19 20 16 B/P (MAP) 134/86 134/87 131/90 128/96 Pulse Ox 99 99 100 100 O2 Delivery Room Air Room Air Room Air Room Air 07/28/17 07/28/17 07/28/17 07/28/17 01:00 01:00 01:15 01:30 Pulse 158 158 130 111 Resp 21 20 21 B/P (MAP) 130/91 127/89 127/84 Pulse Ox 100 100 98 O2 Delivery Room Air Room Air Room Air 07/28/17 07/28/17 07/28/17 07/28/17 02:00 03:00 03:51 04:00 Temp 97.2 Pulse 111 131 109 Resp 18 21 20 B/P (MAP) 103/60 115/83 Pulse Ox 98 100 96 O2 Delivery Room Air Room Air Room Air 07/28/17 07/28/17 07/28/17 07/28/17 04:00 05:00 06:00 07:00 Pulse 122 112 105 Resp 11 19 B/P (MAP) 117/82 112/75 Pulse Ox 100 99 98 O2 Delivery Room Air Room Air Room Air 07/28/17 07/28/17 07/28/17 07/28/17 08:10 11:38 13:00 13:13 Temp 98.0 98.4 Pulse 102 Resp 20 O2 Delivery Room Air Room Air 07/28/17 16:00 Temp 97.9 Pulse 96 Resp 18 B/P (MAP) 95/61 Pulse Ox 100 O2 Delivery Room Air Capillary Refill : Less Than 3 Seconds General Appearance: WD/WN, mild distress HEENT: No scleral icterus (R), No scleral icterus (L), other (poor dentition) Respiratory: lungs clear, normal breath sounds Cardiovascular: no edema, no murmur, tachycardia Gastrointestinal: normal bowel sounds, soft, guarding, tenderness (diffuse, greatest in epigastric region) Extremities: No pedal edema Neurologic/Psychiatric: alert, normal mood/affect Skin: normal color, warm/dry Assessment/Plan Assessment/Plan Admission Dx Hypertriglyceridemia induced pancreatitis Diabetic ketoacidosis Plan Hypertriglyceridemia induced pancreatitis- insulin drip to reduce triglycerides , 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, repeat lipase this morning, NPO -Discussed importance of continuing medications, assistance programs available, etc to prevent rehospitalization- resume home atorvastatin and fenofibrate Diabetic ketoacidosis- DKA protocol/insulin drip -Discussed importance of remaining on insulin at home to prevent readmission, assistance programs available through clinic -A1c 7.8 on admission -Of note, patient did not mention but medication reconciliation shows script for prednisone in last few days- review of clinic chart shows this was prescribed at walk-in for back pain, suspect this may have contributed to her high blood sugar and triglyceride flare DVT ppx- enoxaparin Diagnosis/Problems: Clinical Quality Measures DVT/VTE Risk/Contraindication: Risk Factor Score Per Nursin RFS Level Per Nursing on Admit: 1=Low/No VTE PPX Copy Copies To 1: MONICA WORRELL MD, BETHANY N MD Jul 28, 2017 11:36
[2017-07-28] MEDS: fentaNYL PCA 300 MCG/30 ML VIAL IV PRN (13:13)
[2017-07-28 14:00] LABS: ANION GAP 11 MMOL/L (5-14); BLOOD UREA NITROGEN 7 MG/DL (7-18); BUN/CREATININE RATIO 10; CALCIUM 8.5 MG/DL (8.5-10.1); CARBON DIOXIDE 18 MMOL/L (21-32); CHLORIDE 106 MMOL/L (98-107); CREATININE SERUM 0.73 MG/DL (0.60-1.30); GFR ESTIMATED > 60; GLUCOSE 164 MG/DL (70-105); POTASSIUM 3.3 MMOL/L (3.6-5.0); SODIUM 135 MMOL/L (135-145)
[2017-07-28] MEDS ORDERED: DEXTROSE 10% IV SOLUTION 1,000 ML IV ONE (17:58)
[2017-07-28] MEDS: ENOXAPARIN 40 MG/0.4 ML (LOVENOX) SYR SC SCH (18:14)
[2017-07-28] MEDS ORDERED: FENOFIBRATE 134 MG (LOFIBRA) CAPSULE PO SCH (21:00)
[2017-07-28] MEDS ORDERED: ATORVASTATIN 40 MG (LIPITOR) TABLET PO SCH (21:00)
[2017-07-29] VITALS (10 sets, daily range): BP systolic 80–113; BP diastolic 58–71
[2017-07-29] MEDS: D5 1/2 NS W/KCL 20 MEQ/L 1,000 ML IV SCH ×3 (00:27→07:43)
[2017-07-29] MEDS: 1/2 NS W/KCL 20 MEQ/L 1,000 ML IV SCH ×2 (00:27→04:04)
[2017-07-29] MEDS ORDERED: DEXTROSE 10% IV SOLUTION 1,000 ML IV SCH (01:15)
[2017-07-29] MEDS: fentaNYL PCA 300 MCG/30 ML VIAL IV PRN (01:48)
[2017-07-29] MEDS: NS IV 1000 ML 1,000 ML IV SCH ×2 (03:10→05:20)
[2017-07-29 04:53] LABS: BASOPHILS % (AUTO) 0 % (0-10); EOSINOPHILS % (AUTO) 1 % (0-10); LYMPHOCYTES # (AUTO) 1.1 X 10^3 (1.0-4.0); LYMPHOCYTES % (AUTO) 21 % (12-44); MEAN CORPUSCULAR HEMOGLOBIN 29 PG (25-34); MEAN CORPUSCULAR HGB CONC 33 G/DL (32-36); MEAN CORPUSCULAR VOLUME 87 FL (80-99); MEAN PLATELET VOLUME 10.7 FL (7.4-10.4); MONOCYTES # (AUTO) 0.4 X 10^3 (0.0-1.0); MONOCYTES % (AUTO) 8 % (0-12); NEUTROPHILS # (AUTO) 3.6 X 10^3 (1.8-7.8); NEUTROPHILS % (AUTO) 70 % (42-75); PLATELET COUNT 150 10^3/uL (130-400); RED BLOOD COUNT 3.35 10^6/uL (4.35-5.85); RED CELL DISTRIBUTION WIDTH 14.7 % (10.0-14.5); WHITE BLOOD COUNT 5.1 10^3/uL (4.3-11.0)
[2017-07-29 05:10] LABS: ANION GAP 10 MMOL/L (5-14); BLOOD UREA NITROGEN 3 MG/DL (7-18); BUN/CREATININE RATIO 5; CALCIUM 7.9 MG/DL (8.5-10.1); CARBON DIOXIDE 17 MMOL/L (21-32); CHLORIDE 105 MMOL/L (98-107); CREATININE SERUM 0.59 MG/DL (0.60-1.30); GFR ESTIMATED > 60; GLUCOSE 209 MG/DL (70-105); MAGNESIUM 1.1 MG/DL (1.8-2.4); PHOSPHORUS 1.2 MG/DL (2.3-4.7); POTASSIUM 3.1 MMOL/L (3.6-5.0); SODIUM 132 MMOL/L (135-145)
[2017-07-29 05:13] LABS: LIPASE 145 U/L (8-78); SODIUM 132 MMOL/L (135-145); TRIGLYCERIDES 2041 MG/DL (<150)
[2017-07-29] MEDS: MAGNESIUM 1 GM/100 ML IVPB 100 ML IV SCH ×4 (05:36→08:50)
[2017-07-29] MEDS: POTASSIUM CL 10MEQ/50ML IVPB 50 ML IV SCH ×4 (05:37→08:27)
[2017-07-29] MEDS ORDERED: MAGNESIUM 1 GM/100 ML IVPB 100 ML IV SCH (06:00)
[2017-07-29] MEDS ORDERED: POTASSIUM CL 10MEQ/50ML IVPB 50 ML IV SCH (06:00)
--- NOTE | 2017-07-29 08:39 | Diagnostic Imaging Report ---
EXAMINATION: Portable erect AP chest at 4:13 AM. INDICATION: Chronic pancreatitis. FINDINGS: The heart size is within normal limits and stable when compared to 07/28/2017. The lungs remain clear. There is still no sign of failure, pneumonia, or pleural effusion to suggest an acute abnormality. The mediastinum is not widened. The osseous structures are intact. IMPRESSION: There is no evidence for active disease. When compared to the prior study, there has been no significant change. Dictated by: Dictated on workstation # [id number]
[2017-07-29] MEDS ORDERED: lisINopril 10 MG (PRINIVIL) TAB PO SCH (09:00)
[2017-07-29] MEDS: FAMOTIDINE 20MG/2ML IV (PEPCID) IVP SCH (09:37)
[2017-07-29] MEDS: inSUlin ASPART (NovoLOG) 1 UNIT/0.01 ML (CHARGE PER UNIT) SC SCH ×4 (11:31→16:36)
[2017-07-29] MEDS: ENOXAPARIN 40 MG/0.4 ML (LOVENOX) SYR SC SCH (16:36)
[2017-07-29] MEDS ORDERED: INSU100I14 SQ ×2 (17:08)
--- NOTE | 2017-07-29 17:10 | Discharge Instructions ---
Discharge Inst-[facility] Discharge Medications New, Converted or Re-Newed RX: Other New Medications: Insulin Aspart (Novolog Flexpen) 300 Units/3 Ml Solution 30 UNITS SQ HS, #3 EA 0 Refills Insulin Aspart (Novolog Flexpen) 300 Units/3 Ml Solution 10 UNITS SQ AC, #5 EA Continued Medications: Ibuprofen (Ibuprofen) 800 Mg Tablet 800 MG PO TIDWM PRN for PAIN-MILD, TAB Discontinued Medications: Cyclobenzaprine HCl (Cyclobenzaprine HCl) 10 Mg Tablet 10 MG PO TID PRN for MUSCLE SPASMS, TAB Diclofenac Sodium (Diclofenac Sodium) 75 Mg Tablet.dr 75 MG PO BID, TAB Lisinopril (Lisinopril) 10 Mg Tablet 10 MG PO DAILY, TAB Prednisone (Prednisone) 20 Mg Tab PO UD, TAB TAKE 3 (20MG) TABLETS DAILY X 3 DAYS THEN TAKE 2 (20MG) TABLETS DAILY X 3 DAYS THEN TAKE 1 (20MG) TABLET DAILY X 3 DAYS #18 TABS FILLED 07-25-17 Patient Instructions Goal/Follow Up Appt: Follow up with Dr. Queen on 08/05 at 1:40 pm. Patient Instructions: There are insulin pen samples available for you at [facility], please go directly there after discharge to pick them up from the Family Medicine nurses. Return to The Hospital For: Vomiting, inability to keep down liquids, severe abdominal pain Activity & Diet Discharge Diet: ADA Diet, Low Fat/Low Cholesterol Activity as Tolerated: Yes Copy Copies To 1: SUNNY QUEEN MD, BETHANY N MD Jul 29, 2017 5:03 pm
[2017-07-29] MEDS ORDERED: inSUlin DETERMIR 1 UNIT/0.01 ML (LEVEMIR) CHARGE PER UNIT SQ SCH (21:00)
[2017-07-29] MEDS ORDERED: FAMOTIDINE 20 MG (PEPCID) TABLET PO SCH (21:00)
--- NOTE | 2017-07-29 22:00 | Discharge Summary ---
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 -Discussed importance of continuing medications, assistance programs available, etc to prevent rehospitalization- resume home atorvastatin and fenofibrate -Lipase trended down and triglycerides trended down and she tolerated diet and was requesting discharge Diabetic ketoacidosis- DKA protocol/insulin drip -Discussed importance of remaining on insulin at home to prevent readmission, assistance programs available through clinic -A1c 7.8 on admission -Of note, patient did not mention but medication reconciliation shows script for prednisone in last few days- review of clinic chart shows this was prescribed at walk-in for back pain, suspect this may have contributed to her high blood sugar and triglyceride flare, discontinued on d/c -Insulin samples available at clinic 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 She has had multiple episodes of hypertriglyceridemia with pancreatitis and was concerned this was occurring again. She is frustrated because she has been watching her diet and exercising and has lost weight and thought she was doing well. However, she has not been taking any medications because she cannot afford them. She denies diarrhea, hematemesis or fever. Discharge Summary-Simple/Stand Consultations Discharge Physical Examination Allergies: Coded Allergies: hydromorphone (Unverified Allergy, Intermediate, PT HAS TAKEN LORTAB & OXYCODONE IN THE PAST, 01/28/17) Itching Vitals & I&Os Vital Sign - Last 12Hours Date Time Temp Pulse Resp B/P (MAP) Pulse Ox O2 Delivery O2 Flow Rate FiO2 07/29/17 17:20 115 20 113/68 100 Room Air 07/29/17 12:18 97.3 Intake and Output 07/30/17 00:00 Intake Total 200 ml Output Total 475 ml Balance -275 ml General Appearance: Alert, No Acute Distress Respiratory: Clear to Auscultation, Normal Air Movement Cardiovascular: Regular Rate, No Murmurs Abdominal: Normal Bowel Sounds, Soft, No Tenderness Neuro: Normal Speech Psych/Mental Status: Mental Status NL Hospital Course See final discharge diagnosis. Labs Laboratory Tests Test 07/27/17 23:17 07/27/17 23:21 07/28/17 00:57 07/28/17 01:04 Range/Units Sodium Level 131 L 134 L 135-145 MMOL/L Potassium Level 3.6 3.6 3.6-5.0 MMOL/L Chloride Level 100 104 98-107 MMOL/L Carbon Dioxide Level 8 *L 10 L 21-32 MMOL/L Anion Gap 23 H 20 H 5-14 MMOL/L Blood Urea Nitrogen 17 14 7-18 MG/DL Creatinine 1.23 1.14 0.60-1.30 MG/DL Estimat Glomerular Filtration Rate 49 54 BUN/Creatinine Ratio 14 12 Glucose Level 415 *H 333 H 70-105 MG/DL Calcium Level 9.4 9.2 8.5-10.1 MG/DL Glucometer 417 *H 342 H 70-110 MG/DL Test 07/28/17 02:06 07/28/17 03:08 07/28/17 04:08 07/28/17 05:06 Range/Units Glucometer 323 H 236 H 255 H 70-110 MG/DL White Blood Count 10.1 4.3-11.0 10^3/uL Red Blood Count 4.28 L 4.35-5.85 10^6/uL Hemoglobin 12.6 11.5-16.0 G/DL Hematocrit 37 35-52 % Mean Corpuscular Volume 85 80-99 FL Mean Corpuscular Hemoglobin 29 25-34 PG Mean Corpuscular Hemoglobin Concent 35 32-36 G/DL Red Cell Distribution Width 15.2 H 10.0-14.5 % Platelet Count 243 130-400 10^3/uL Mean Platelet Volume 10.9 H 7.4-10.4 FL Neutrophils (%) (Auto) 78 H 42-75 % Lymphocytes (%) (Auto) 13 12-44 % Monocytes (%) (Auto) 9 0-12 % Eosinophils (%) (Auto) 0 0-10 % Basophils (%) (Auto) 0 0-10 % Neutrophils # (Auto) 7.8 1.8-7.8 X 10^3 Lymphocytes # (Auto) 1.3 1.0-4.0 X 10^3 Monocytes # (Auto) 0.9 0.0-1.0 X 10^3 Eosinophils # (Auto) 0.0 0.0-0.3 10^3/uL Basophils # (Auto) 0.0 0.0-0.1 10^3/uL Sodium Level 133 L 135-145 MMOL/L Potassium Level 3.9 3.6-5.0 MMOL/L Chloride Level 106 98-107 MMOL/L Carbon Dioxide Level 16 L 21-32 MMOL/L Anion Gap 11 5-14 MMOL/L Blood Urea Nitrogen 12 7-18 MG/DL Creatinine 0.93 0.60-1.30 MG/DL Estimat Glomerular Filtration Rate > 60 BUN/Creatinine Ratio 13 Glucose Level 238 H 70-105 MG/DL Calcium Level 8.8 8.5-10.1 MG/DL Phosphorus Level 0.8 *L 2.3-4.7 MG/DL Magnesium Level 2.4 1.8-2.4 MG/DL Test 07/28/17 05:08 07/28/17 06:05 07/28/17 06:59 07/28/17 07:00 Range/Units Glucometer 252 H 247 H 232 H 70-110 MG/DL Phosphorus Level < 0.7 *L 2.3-4.7 MG/DL Triglycerides Level 3387 H <150 MG/DL Lipase 575 H 8-78 U/L Test 07/28/17 08:08 07/28/17 08:56 07/28/17 10:23 07/28/17 10:59 Range/Units Glucometer 193 H 180 H 132 H 188 H 70-110 MG/DL Test 07/28/17 12:13 07/28/17 13:00 07/28/17 13:30 07/28/17 14:13 Range/Units Glucometer 141 H 162 H 190 H 70-110 MG/DL Sodium Level 135 135-145 MMOL/L Potassium Level 3.3 L 3.6-5.0 MMOL/L Chloride Level 106 98-107 MMOL/L Carbon Dioxide Level 18 L 21-32 MMOL/L Anion Gap 11 5-14 MMOL/L Blood Urea Nitrogen 7 7-18 MG/DL Creatinine 0.73 0.60-1.30 MG/DL Estimat Glomerular Filtration Rate > 60 BUN/Creatinine Ratio 10 Glucose Level 164 H 70-105 MG/DL Calcium Level 8.5 8.5-10.1 MG/DL Test 07/28/17 15:04 07/28/17 16:03 07/28/17 17:08 07/28/17 18:00 Range/Units Glucometer 198 H 154 H 124 H 148 H 70-110 MG/DL Test 07/28/17 19:26 07/28/17 20:03 07/28/17 21:03 07/28/17 22:03 Range/Units Glucometer 158 H 157 H 154 H 112 H 70-110 MG/DL Test 07/28/17 22:38 07/28/17 23:35 07/29/17 00:02 07/29/17 01:01 Range/Units Glucometer 154 H 138 H 138 H 176 H 70-110 MG/DL Test 07/29/17 01:39 07/29/17 01:52 07/29/17 03:04 07/29/17 04:02 Range/Units Sodium Level 132 L 135-145 MMOL/L Glucometer 211 H 248 H 225 H 70-110 MG/DL Test 07/29/17 04:31 07/29/17 05:13 07/29/17 06:00 07/29/17 06:55 Range/Units White Blood Count 5.1 4.3-11.0 10^3/uL Red Blood Count 3.35 L 4.35-5.85 10^6/uL Hemoglobin 9.6 #L 11.5-16.0 G/DL Hematocrit 29 L 35-52 % Mean Corpuscular Volume 87 80-99 FL Mean Corpuscular Hemoglobin 29 25-34 PG Mean Corpuscular Hemoglobin Concent 33 32-36 G/DL Red Cell Distribution Width 14.7 H 10.0-14.5 % Platelet Count 150 130-400 10^3/uL Mean Platelet Volume 10.7 H 7.4-10.4 FL Neutrophils (%) (Auto) 70 42-75 % Lymphocytes (%) (Auto) 21 12-44 % Monocytes (%) (Auto) 8 0-12 % Eosinophils (%) (Auto) 1 0-10 % Basophils (%) (Auto) 0 0-10 % Neutrophils # (Auto) 3.6 1.8-7.8 X 10^3 Lymphocytes # (Auto) 1.1 1.0-4.0 X 10^3 Monocytes # (Auto) 0.4 0.0-1.0 X 10^3 Eosinophils # (Auto) 0.0 0.0-0.3 10^3/uL Basophils # (Auto) 0.0 0.0-0.1 10^3/uL Sodium Level 132 L 135-145 MMOL/L Potassium Level 3.1 L 3.6-5.0 MMOL/L Chloride Level 105 98-107 MMOL/L Carbon Dioxide Level 17 L 21-32 MMOL/L Anion Gap 10 5-14 MMOL/L Blood Urea Nitrogen 3 L 7-18 MG/DL Creatinine 0.59 L 0.60-1.30 MG/DL Estimat Glomerular Filtration Rate > 60 BUN/Creatinine Ratio 5 Glucose Level 209 H 70-105 MG/DL Calcium Level 7.9 L 8.5-10.1 MG/DL Phosphorus Level 1.2 L 2.3-4.7 MG/DL Magnesium Level 1.1 L 1.8-2.4 MG/DL Triglycerides Level 2041 H <150 MG/DL Lipase 145 H 8-78 U/L Glucometer 203 H 181 H 172 H 70-110 MG/DL Test 07/29/17 15:03 Range/Units Glucometer 210 H 70-110 MG/DL Radiology Reviewed CT abdomen 07/27: " IMPRESSION: Continued hepatic steatosis. There is edema and/ or inflammation around the body of the pancreas suggesting pancreatitis and clinical correlation is recommended. Otherwise, no acute abnormality or adverse change is seen. Dominant cyst in the left adnexal region is again noted. Discharge Instructions to patient/family Please see electonic discharge instructions given to patient. Discharge Medications Reviewed and agree with Discharge Medication list on patient's Discharge Instruction sheet Clinical Quality Measures DVT/VTE Risk/Contraindication: Risk Factor Score Per Nursin RFS Level Per Nursing on Admit: 1=Low/No VTE PPX Copy Copies To 1: MONICA WORRELL MD, BETHANY N MD Jul 29, 2017 10:00 pm
== END 2017-07-29 17:25 | disposition home or self-care (01) | DRG 438 ==
LOC: EDUNIT# 18:40 → ER 18:41 → ICU 21:27 → 4TH 07-29 11:45
PROVIDERS: ADMIT Family Medicine; ATTEND Family Medicine
DX: K85.80 Other acute pancreatitis without necrosis or infection (principal); E78.1 Pure hyperglyceridemia; E13.10 Other specified diabetes mellitus with ketoacidosis without coma; E87.1 Hypo-osmolality and hyponatremia; E53.8 Deficiency of other specified B group vitamins; E28.2 Polycystic ovarian syndrome; E78.00 Pure hypercholesterolemia, unspecified; Z79.4 Long term (current) use of insulin; Z91.120 Patient's intentional underdosing of medication regimen due to financial hardship; Z91.11 Patient's noncompliance with dietary regimen
CPT/HCPCS: 36415; 71010; 74177; 80048; 80053; 80061; 80306; 81000; 82805; 82962; 83036; 83605; 83690; 83735; 84100; 84295; 84478; 84703; 85007; 85025; 85027; 85610; 85730; 87040; 87081; 96361; 96372; 96374; 96375; 96376

== ENCOUNTER 2017-10-24 16:43 | Emergency (ER) | payer MEDICARE ==
[~2017-10-24] VITALS: Ht 165.1 cm; Wt 64.4 kg
[~2017-10-24 16:43] MED LIST changes: +CYCL10TA9 PO; +DICL75TA2 PO; +IBUP-1780 PO; +PRD20T PO
--- OUTSIDE RECORDS SUMMARY | 2017-10-24 16:51 | XMS REPORT ---
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 Active 913072618 Problem Type 2 diabetes mellitus without complications E11.9 Active 402434333 Problem Mixed hyperlipidemia E78.2 Active 466790142 ALLERGIES Substance Reaction Event Type Date Status Dilaudid itching Drug Allergy Jan, Active SOCIAL HISTORY Never Assessed PLAN OF CARE Activity Details Follow Up 3 Months Reason: VITAL SIGNS Height 65 in 2017-02-10 Weight 151.1 lbs 2017-02-10 Temperature 98.2 degrees Fahrenheit 2017-02-10 Heart Rate 88 bpm 2017-02-10 Respiratory Rate 16 2017-02-10 BMI 25.14 kg/m2 2017-02-10 Blood pressure systolic 110 mmHg 2017-02-10 Blood pressure diastolic 80 mmHg 2017-02-10 MEDICATIONS Medication Instructions Dosage Frequency Start Date End Date Duration Status ReliOn Blood Glucose Test - test 3 times per day Jan, Active NovoLog 100 UNIT/ML Subcutaneous 3 times a day before meals inject 20 u Jan, Active ReliOn Confirm Glucose Monitor w/Device test blood sugar 8h Jan, Active Lipitor 80 MG Orally Once a day take 1 tablet by Oral route at bedtime 1 time per day 24h Nov, 30 days Active Fenofibrate Micronized 134 MG Orally Once a day take 1 capsule (134 mg) by oral route once daily with food 24h Nov, 3 days Active Levemir Flexpen 100 unit/mL (3 mL) Subcutaneous at bedtime 40 Unit Nov Active RESULTS Name Result Date Reference Range A1C (IN HOUSE) 2017-02-10 A1C IN HOUSE 10.7 4.3 - 5.6 % Previous A1c na Lot [id number] Exp date 11/2018 PROCEDURES Procedure Date Ordered Result Body Site [facility] VISIT ESTABLISHED PATIENT February 10, 2017 GLYCATED HEMOGLOBIN TEST February 10, 2017 IMMUNIZATIONS No Known Immunizations MEDICAL (GENERAL) HISTORY Type Description Date Medical History diabetes Surgical History tubal ligation 2004 Hospitalization History Acute Pancreatitis, Hypertriglyceridemia, UTI--[facility] 08/18/16 Hospitalization History DKA, pancreatitis--[facility] 09/28/2016 Hospitalization History Pancreatitis, hypertriglyceride-[facility] 12/28/16 Hospitalization History Acute pancreatitis, hypertriglyceridemia, uncontrolled DM-[facility] 01/27/27 Hospitalization History Acute pancreatitis, hypertriglyceridemia, uncontrolled DM-[facility] 02/07/17 Hospitalization History DKA, ACute Pancreatitis-[facility] 02/27/17
--- OUTSIDE RECORDS SUMMARY | 2017-10-24 16:51 | XMS REPORT ---
Author Author MONICA WORRELL Organization [facility] Address [address] [place] [address] Care Team Providers Care American History Teacher Name Role Phone MONICA WORRELL Unavailable PROBLEMS Type Condition ICD9-CM Code [id number] Code Onset Dates Condition Status SNOMED Code Problem Type 2 diabetes mellitus with hyperglycemia E11.65 Active 962451455954209 Problem Microalbuminuria R80.9 Active 999769645 Problem assisted current use of insulin Z79.4 Active 585059597 Problem Type 2 diabetes mellitus without complications E11.9 Active 522284063 Problem Mixed hyperlipidemia E78.2 Active 357572028 ALLERGIES No Information SOCIAL HISTORY Never Assessed PLAN OF CARE VITAL SIGNS MEDICATIONS Medication Instructions Dosage Frequency Start Date End Date Duration Status NovoLog 100 UNIT/ML Subcutaneous 3 times a day before meals inject 20 u Jan, Active RESULTS No Results PROCEDURES No Known procedures IMMUNIZATIONS No Known Immunizations MEDICAL (GENERAL) HISTORY Type Description Date Medical History diabetes Surgical History tubal ligation 2004 Hospitalization History Acute Pancreatitis, Hypertriglyceridemia, UTI--[facility] 08/18/16 Hospitalization History DKA, pancreatitis--[facility] 09/28/2016 Hospitalization History Pancreatitis, hypertriglyceride-[facility] 12/28/16 Hospitalization History Acute pancreatitis, hypertriglyceridemia, uncontrolled DM-[facility] 01/27/27 Hospitalization History Acute pancreatitis, hypertriglyceridemia, uncontrolled DM-[facility] 02/07/17 Hospitalization History DKA, ACute Pancreatitis-[facility] 02/27/17
--- OUTSIDE RECORDS SUMMARY | 2017-10-24 16:51 | XMS REPORT ---
Author Author MONICA WORRELL Organization [facility] Address [address] [place] [address] Care Team Providers Care Implementation Manager Name Role Phone MONICA WORRELL Unavailable PROBLEMS Type Condition ICD9-CM Code [id number] Code Onset Dates Condition Status SNOMED Code Problem Type 2 diabetes mellitus with hyperglycemia E11.65 Active 482221633718033 Problem Microalbuminuria R80.9 Active 511811724 Problem senior care current use of insulin Z79.4 Active 563256847 Problem Type 2 diabetes mellitus without complications E11.9 Active 163910947 Problem Mixed hyperlipidemia E78.2 Active 102994813 ALLERGIES Unknown Allergies SOCIAL HISTORY No smoking Hx information available PLAN OF CARE VITAL SIGNS MEDICATIONS Medication Instructions Dosage Frequency Start Date End Date Duration Status Levemir Flexpen 100 unit/mL (3 mL) Subcutaneous at bedtime 40 Unit Nov Active NovoLog Flexpen 100 unit/mL Subcutaneous 3 times a day before meals take 20 Units Nov, Active RESULTS No Results PROCEDURES No Known procedures IMMUNIZATIONS No Known Immunizations
--- OUTSIDE RECORDS SUMMARY | 2017-10-24 16:52 | XMS REPORT ---
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 Active 866917029 Problem Type 2 diabetes mellitus without complications E11.9 Active 303685695 Problem Mixed hyperlipidemia E78.2 Active 548246657 ALLERGIES No Information SOCIAL HISTORY Never Assessed PLAN OF CARE VITAL SIGNS MEDICATIONS Medication Instructions Dosage Frequency Start Date End Date Duration Status NovoLog 100 UNIT/ML Subcutaneous 3 times a day before meals inject 20 u Jan, Active Levemir Flexpen 100 unit/mL (3 mL) Subcutaneous at bedtime 40 Unit Nov Active RESULTS No Results PROCEDURES No Known procedures IMMUNIZATIONS No Known Immunizations MEDICAL (GENERAL) HISTORY Type Description Date Medical History diabetes Surgical History tubal ligation 2004 Hospitalization History Acute Pancreatitis, Hypertriglyceridemia, UTI--[facility] 08/18/16 Hospitalization History DKA, pancreatitis--[facility] 09/28/2016 Hospitalization History Pancreatitis, hypertriglyceride-[facility] 12/28/16 Hospitalization History Acute pancreatitis, hypertriglyceridemia, uncontrolled DM-[facility] 01/27/27 Hospitalization History Acute pancreatitis, hypertriglyceridemia, uncontrolled DM-[facility] 02/07/17 Hospitalization History DKA, ACute Pancreatitis-[facility] 02/27/17
--- OUTSIDE RECORDS SUMMARY | 2017-10-24 16:53 | XMS REPORT ---
Author Author MONICA WORRELL Organization [facility] Address [address] [place] [address] Care Team Providers Care Corporate Attorney Name Role Phone MONICA WORRELL Unavailable PROBLEMS Type Condition ICD9-CM Code IGR52-QU Code Onset Dates Condition Status SNOMED Code Problem Type 2 diabetes mellitus with hyperglycemia E11.65 Active 344644952459846 Problem Microalbuminuria R80.9 Active 014475656 Problem correction current use of insulin Z79.4 Active 066443781 Problem Type 2 diabetes mellitus without complications E11.9 Active 457472786 Problem Mixed hyperlipidemia E78.2 Active 702640033 ALLERGIES No Information SOCIAL HISTORY Never Assessed [...] ligation 2004 Hospitalization History Acute Pancreatitis, Hypertriglyceridemia, UTI--[facility] 08/18/16 Hospitalization History DKA, pancreatitis--[facility] 09/28/2016 Hospitalization History Pancreatitis, hypertriglyceride-[facility] 12/28/16 Hospitalization History Acute pancreatitis, hypertriglyceridemia, uncontrolled DM-[facility] 01/27/27 Hospitalization History Acute pancreatitis, hypertriglyceridemia, uncontrolled DM-[facility] 02/07/17 Hospitalization History DKA, ACute Pancreatitis-[facility] 02/27/17
--- OUTSIDE RECORDS SUMMARY | 2017-10-24 16:55 | XMS REPORT ---
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 Active 433741953 Problem Type 2 diabetes mellitus without complications E11.9 Active 687790951 Problem Mixed hyperlipidemia E78.2 Active 175345929 ALLERGIES No Information SOCIAL HISTORY Never Assessed PLAN OF CARE VITAL SIGNS MEDICATIONS Unknown Medications RESULTS No Results PROCEDURES No Known procedures IMMUNIZATIONS No Known Immunizations MEDICAL (GENERAL) HISTORY Type Description Date Medical History diabetes Surgical History tubal ligation 2004 Hospitalization History Acute Pancreatitis, Hypertriglyceridemia, UTI--[facility] 08/18/16 Hospitalization History DKA, pancreatitis--[facility] 09/28/2016 Hospitalization History Pancreatitis, hypertriglyceride-[facility] 12/28/16 Hospitalization History Acute pancreatitis, hypertriglyceridemia, uncontrolled DM-[facility] 01/27/27 Hospitalization History Acute pancreatitis, hypertriglyceridemia, uncontrolled DM-[facility] 02/07/17 Hospitalization History DKA, ACute Pancreatitis-[facility] 02/27/17
--- OUTSIDE RECORDS SUMMARY | 2017-10-24 16:56 | XMS REPORT ---
Author Author MONICA WORRELL Organization [facility] Address [address] [place] [address] Care Team Providers Care Anodic Treater Name Role Phone MONICA WORRELL Unavailable PROBLEMS Type Condition ICD9-CM Code [id number] Code Onset Dates Condition Status SNOMED Code Problem Type 2 diabetes mellitus with hyperglycemia E11.65 Active 896569283691782 Problem Microalbuminuria R80.9 Active 023261894 Problem detention current use of insulin Z79.4 Active 965518613 Problem Type 2 diabetes mellitus without complications E11.9 Active 599945668 Problem Mixed hyperlipidemia E78.2 Active 418556505 ALLERGIES No Information SOCIAL HISTORY Never Assessed PLAN OF CARE VITAL SIGNS MEDICATIONS Unknown Medications RESULTS No Results PROCEDURES No Known procedures IMMUNIZATIONS No Known Immunizations MEDICAL (GENERAL) HISTORY Type Description Date Medical History diabetes Surgical History tubal ligation 2004 Hospitalization History Acute Pancreatitis, Hypertriglyceridemia, UTI--[facility] 08/18/16 Hospitalization History DKA, pancreatitis--[facility] 09/28/2016 Hospitalization History Pancreatitis, hypertriglyceride-[facility] 12/28/16 Hospitalization History Acute pancreatitis, hypertriglyceridemia, uncontrolled DM-[facility] 01/27/27 Hospitalization History Acute pancreatitis, hypertriglyceridemia, uncontrolled DM-[facility] 02/07/17 Hospitalization History DKA, ACute Pancreatitis-[facility] 02/27/17
[2017-10-24] MEDS ORDERED: ATOR40TA PO (17:20)
[2017-10-24] MEDS ORDERED: LIDOCAINE 1% INJ 20 ML (XYLOCAINE) VIAL ONE (17:32)
[2017-10-24] MEDS ORDERED: LIDOCAINE 1% INJ 20 ML (XYLOCAINE) VIAL INJ ONE (17:45)
--- NOTE | 2017-10-24 17:48 | ED Integumentary General ---
General Chief Complaint: Skin/Wound Problems Stated Complaint: BUMP ON LT SIDE GROWING AND PAINFUL Nursing Triage Note: PT AMBULATED TO ROOM 9, PT HAS ABCESS ON L UPPER ABD AREA, SCAB INTACT, REDNESS NOTED AROUNG WOUND. Source: patient Exam Limitations: no limitations History of Present Illness Time seen by provider: 17:37 Initial Comments Patient present to ER by private conveyance with a chief complaint of approximately 2-3 weeks of a small nodule on her left abdomen wall that has grown drained about 6 days ago when she put a gauze dressing over it and now is growing again. She's had no fevers or chills but yesterday she did get nauseated and vomit 1. She has no history of abscesses or hidradenitis separative up. She denies history of trauma to the area. She has allergies only to Dilaudid. Allergies and Home Medications Allergies Coded Allergies: hydromorphone (Unverified Allergy, Intermediate, PT HAS TAKEN LORTAB & OXYCODONE IN THE PAST, 01/28/17) Itching Home Medications Atorvastatin Calcium 40 Mg Tablet, Unknown Dose PO, (Reported) Ibuprofen 800 Mg Tablet, 800 MG PO TIDWM PRN for PAIN-MILD, (Reported) Insulin Aspart 300 Units/3 Ml Solution, 30 UNITS SQ HS, #3 Ref 0 Prescribed by: SUNNY PERRY on 07/29/17 1708 Insulin Aspart 300 Units/3 Ml Solution, 10 UNITS SQ AC, #5 Prescribed by: SUNNY PERRY on 07/29/17 1708 Constitutional: No chills, No diaphoresis, No fever, No malaise EENTM: No hearing loss, No ear pain Respiratory: No cough, No short of breath Cardiovascular: No chest pain, No vascular heart diseas Gastrointestinal: No abdominal pain, No constipation, No diarrhea, nausea, vomiting (times one yesterday) Genitourinary: No discharge, No dysuria : No Musculoskeletal: No back pain, No joint pain Skin: No pruritus, No rash Psychiatric/Neurological: Denies Headache, Denies Numbness, Denies Paresthesia Past [id number] Hx Patient Social History Alcohol Use: Denies Use Number of Drinks Today: AA Alcohol Beverage of Choice: Beer Recreational Drug Use: No Smoking Status: Never a Smoker 2nd Hand Smoke Exposure: No Recent Foreign Travel: No Contact w/Someone Who Travel: No Recent Infectious Disease Expo: No Recent Hopitalizations: No Physical Abuse: No Sexual Abuse: No Immunizations Up To Date Tetanus Booster (TDap): Unknown PED Vaccines UTD: No Date of Pneumonia Vaccine: Oct 21, 2013 Date of Influenza Vaccine: Aug 30, 2016 Seasonal Allergies Seasonal Allergies: No Surgeries History of Surgeries: Yes (DENTAL SURGERY) Surgeries: Tubal Ligation Respiratory History of Respiratory Disorde: No Cardiovascular History of Cardiac Disorders: Yes Cardiac Disorders: High Cholesterol Neurological History of Neurological Disord: No 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 System Hx 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 Disorders: No Sexually Transmitted Disease: No HIV/AIDS: No Female 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 Disorders: Denies 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 Genitourinary History of Genitourinary Disor: No Genitourinary Disorders: Bladder Infection Gastrointestinal History of Gastrointestinal Di: Yes (MULTIPLE ER VISITS AND ADMISSIONS FOR PANCREATITIS) Gastrointestinal Disorders: Pancreatitis Musculoskeletal History of Musculoskeletal Dis: No Endocrine History of Endocrine Disorders: Yes Endocrine Disorders: Diabetes, Insulin dep HEENT History of HEENT Disorders: No Loss of Vision: Denies Hearing Impairment: Denies Cancer History of Cancer: No Psychosocial History of Psychiatric Problem: No Suicide Risk Score: 0 Integumentary History of Skin or Integumenta: Yes (rash/warts to elbows, knees, feet) Skin/Integumentary Disorders: Recent Skin Changes Blood Transfusions History of Blood Disorders: No Adverse Reaction to a Blood Tr: No Family Medical History Significant Family History: Heart Disease, CAD Under 55 Years Old, Diabetes, GI Disease, Hypertension Family Medial History: Cancer 03 MOTHER 09 BROTHER GRANDMOTHER Family history: Arthritis 03 MOTHER Family history: Breast disease 03 MOTHER Family history: Cardiovascular disease 03 MOTHER Family history: Diabetes mellitus 03 MOTHER 09 BROTHER GRANDMOTHER Physical Exam Vital Signs Vital Sign - Last 12Hours 10/24/17 17:16 Temp 97.9 Pulse 110 Resp 18 B/P (MAP) 112/82 Pulse Ox 99 Capillary Refill : Less Than 3 Seconds General Appearance: WD/WN, no apparent distress HEENT: PERRL/EOMI, pharynx normal Neck: non-tender, normal inspection Cardiovascular: normal peripheral pulses, regular rate, rhythm, no edema Respiratory: chest non-tender, lungs clear, normal breath sounds Gastrointestinal: normal bowel sounds, non tender, soft Extremities: normal range of motion, normal capillary refill Neurologic/Psychiatric: alert, oriented x 3 Skin: other (3 x 5 cm area of erythematous induration with a central 1.5 cm diameter or with eschar over it draining small amounts purulent material. Tender to palpation.) I&D : Blade Size: 11 I & D Procedure: betadine prep (chlorhexidine) Progress Patient was numbed up with 4 cc of 1% lidocaine without epinephrine and a ring block fashion. A incision with 11 blade scalpel was performed a cross vazquez manner and then loculations were broken up with a sterile Q-tip. A large 30 cc amount of thick white purulent material was then expressed from the wound. The patient tolerated the procedure well. A light gauze dressing was applied. Progress/Results/Core Measures Results/Orders My Orders Orders - FRANDY BATISTA Lidocaine 1% Injection (Xylocaine 1% Inj (10/24/17 17:45) Lidocaine 1% Injection (Xylocaine 1% Inj (10/24/17 17:32) Vital Signs/I&O Vital Sign - Last 12Hours 10/24/17 17:16 Temp 97.9 Pulse 110 Resp 18 B/P (MAP) 112/82 Pulse Ox 99 Blood Pressure Mean: 92 Departure Impression Impression: Primary Impression: Abscess Disposition: 01 HOME, SELF-CARE Condition: Improved Departure-Patient Inst. Decision time for Depature: 18:05 Referrals: MC ROSS MD (PCP/Family) Primary Care Physician Patient Instructions: Abscess Incision and Drainage (DC) Add. Discharge Instructions: Clean the site with regular soap and water. No hydrogen peroxide, iodine, or alcohol. Change the dressing daily or if it becomes soiled with a light gauze dressing. Do not pack the wound or apply any ointments or triple anabolic ointment into her over the wound. Take the Bactrim one tablet twice a day with food for the next 5 days to completion. If your symptoms have not totally resolved by the end of the week then you should follow-up with your primary care physician for further management. If you begin to have fevers, nausea and vomiting or chills then you should return to the ER or to your primary care physician which ever is more appropriate. All discharge instructions reviewed with patient and/or family. Voiced understanding. Scripts Sulfamethoxazole/Trimethoprim (Bactrim Ds Tablet) 1 Each Tablet 1 EACH PO BID for 7 Days, #14 TAB 0 Refills Prov: LESTER,FRANDY J 10/24/17 Copy Copies To 1: CARA HILL TITUS J Oct 24, 2017 17:48
[2017-10-24] MEDS ORDERED: SULF1TAB35 PO (18:09)
[2017-10-24 18:16] VITALS: BP 112/82
== END 2017-10-24 18:15 | disposition home or self-care (01) ==
LOC: EDUNIT# 16:43 → ER 16:45
DX: L02.211 Cutaneous abscess of abdominal wall (principal); E11.9 Type 2 diabetes mellitus without complications; E78.00 Pure hypercholesterolemia, unspecified; Z87.19 Personal history of other diseases of the digestive system; Z87.448 Personal history of other diseases of urinary system; Z82.49 Family history of ischemic heart disease and other diseases of the circulatory system; Z79.4 Long term (current) use of insulin; Z98.51 Tubal ligation status
CPT/HCPCS: 99282

== ENCOUNTER 2018-01-06 07:51 | Inpatient (IN) | payer MEDICARE ==
[~2018-01-06] VITALS: Ht 167.6 cm; Wt 68.5 kg
[~2018-01-06 07:51] MED LIST changes: +ATOR40TA PO
[2018-01-06] MEDS ORDERED: LACTATED RINGERS 1,000 ML IV ONE (08:03)
--- NOTE | 2018-01-06 08:11 | ED GI ---
General Chief Complaint: Abdominal/GI Problems Stated Complaint: N/V/ABD PAIN Source of Information: Patient, Old Records Exam Limitations: No Limitations History of Present Illness Date Seen by Provider: Jan 06, 2018 Time Seen by Provider: 07:59 Initial Comments Patient resists ER by private conveyance with a chief complaint that last night after getting home from work she says she smelled a gasoline or kerosene smell which made her nauseated. She says no one else in the household smelled. She does have a gas heater. She's not sure when the last time it was serviced. She says she's vomited once without blood in it. She says no painful urination, cough, shortness of breath, chest pain. She is having some epigastric pain. She says she has a history of pancreatitis and is concerned this might be happening again. She denies any fevers, chills or rash. Patient says she's been out of her insulin for about a month now because she does not have a job to afford it. She says she typically takes 20 units 3 times a day of the NovoLog and 50 units daily at bedtime of Lantus. She says her blood sugars prior to that were very good but she is not taking them now. Allergies and Home Medications Allergies Coded Allergies: hydromorphone (Unverified Allergy, Intermediate, PT HAS TAKEN LORTAB & OXYCODONE IN THE PAST, 01/28/17) Itching Review of Systems Constitutional: No chills, No diaphoresis EENTM: No Blurred Vision, No Double Vision Respiratory: Denies Cough, Denies Shortness of Air Cardiovascular: Denies Chest Pain, Denies Lightheadedness Gastrointestinal: See HPI, Denies Abdomen Distended, Abdominal Pain, Denies Constipated, Denies Diarrhea, Nausea, Vomiting Genitourinary: Denies Burning, Denies Discharge Skin: No pruritus, No rash Past Nxyjpiz-Vaolpb-Tdtsoo Hx Patient Social History Alcohol Beverage of Choice: Beer 2nd Hand Smoke Exposure: No Recent Foreign Travel: No Contact w/Someone Who Travel: No Recent Hopitalizations: No Immunizations Up To Date Tetanus Booster (TDap): Unknown PED Vaccines UTD: No Date of Pneumonia Vaccine: Oct 21, 2013 Date of Influenza Vaccine: Aug 30, 2016 Seasonal Allergies Seasonal Allergies: No Surgeries History of Surgeries: Yes (DENTAL SURGERY) Surgeries: Tubal Ligation Respiratory History of Respiratory Disorde: No Cardiovascular History of Cardiac Disorders: Yes Cardiac Disorders: High Cholesterol Neurological History of Neurological Disord: No 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 System Hx 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 Disorders: No Sexually Transmitted Disease: No HIV/AIDS: No Female 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 Disorders: Denies 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 Genitourinary History of Genitourinary Disor: No Genitourinary Disorders: Bladder Infection Gastrointestinal History of Gastrointestinal Di: Yes (MULTIPLE ER VISITS AND ADMISSIONS FOR PANCREATITIS) Gastrointestinal Disorders: Pancreatitis Musculoskeletal History of Musculoskeletal Dis: No Endocrine History of Endocrine Disorders: Yes Endocrine Disorders: Diabetes, Insulin dep HEENT History of HEENT Disorders: No Loss of Vision: Denies Hearing Impairment: Denies Cancer History of Cancer: No Psychosocial History of Psychiatric Problem: No Integumentary History of Skin or Integumenta: Yes (rash/warts to elbows, knees, feet) Skin/Integumentary Disorders: Recent Skin Changes Blood Transfusions History of Blood Disorders: No Adverse Reaction to a Blood Tr: No Family Medical History Significant Family History: Heart Disease, CAD Under 55 Years Old, Diabetes, GI Disease, Hypertension Family Medial History: Cancer 03 MOTHER 09 BROTHER GRANDMOTHER Family history: Arthritis 03 MOTHER Family history: Breast disease 03 MOTHER Family history: Cardiovascular disease 03 MOTHER Family history: Diabetes mellitus 03 MOTHER 09 BROTHER GRANDMOTHER Physical Exam Vital Signs VS - Last 72 Hours, by Label 01/06/18 07:54 Temp 95.5 Pulse 135 Resp 18 B/P (MAP) 137/99 (112) Pulse Ox 97 Capillary Refill : General Appearance: WD/WN, mild distress HEENT: PERRL/EOMI, pharynx normal Neck: non-tender, full range of motion Respiratory: chest non-tender, lungs clear, normal breath sounds, no respiratory distress Cardiovascular: regular rate, rhythm, no edema, tachycardia Peripheral Pulses: 2+ Radial Pulses (R), 2+ Radial Pulses (L) Gastrointestinal: normal bowel sounds, soft, tenderness (epigastric region) Neurologic/Psychiatric: alert, normal mood/affect, oriented x 3 Skin: normal color, warm/dry Focused Exam Evaluation Lactate Level Laboratory Tests 01/06/18 08:20: Lactic Acid Level 1.16 Lactic Acid Level Laboratory Tests Test 01/06/18 08:20 Lactic Acid Level 1.16 MMOL/L (0.50-2.00) Progress/Results/Core Measures Results/Orders Lab Results Laboratory Tests Test 01/06/18 08:20 01/06/18 08:25 Range/Units White Blood Count 3.6 L 4.3-11.0 10^3/uL Red Blood Count 4.19 L 4.35-5.85 10^6/uL Hemoglobin 12.6 11.5-16.0 G/DL Hematocrit 37 35-52 % Mean Corpuscular Volume 87 80-99 FL Mean Corpuscular Hemoglobin 30 25-34 PG Mean Corpuscular Hemoglobin Concent 35 32-36 G/DL Red Cell Distribution Width 12.0 10.0-14.5 % Platelet Count 161 130-400 10^3/uL Mean Platelet Volume 11.0 H 7.4-10.4 FL Neutrophils (%) (Auto) 84 H 42-75 % Lymphocytes (%) (Auto) 11 L 12-44 % Monocytes (%) (Auto) 5 0-12 % Eosinophils (%) (Auto) 1 0-10 % Basophils (%) (Auto) 0 0-10 % Neutrophils # (Auto) 3.0 1.8-7.8 X 10^3 Lymphocytes # (Auto) 0.4 L 1.0-4.0 X 10^3 Monocytes # (Auto) 0.2 0.0-1.0 X 10^3 Eosinophils # (Auto) 0.0 0.0-0.3 10^3/uL Basophils # (Auto) 0.0 0.0-0.1 10^3/uL Prothrombin Time 12.3 12.2-14.7 SEC INR Comment 0.9 0.8-1.4 Activated Partial Thromboplast Time 26 24-35 SEC Sodium Level 133 L 135-145 MMOL/L Potassium Level 4.1 3.6-5.0 MMOL/L Chloride Level 95 L 98-107 MMOL/L Carbon Dioxide Level 20 L 21-32 MMOL/L Anion Gap 18 H 5-14 MMOL/L Blood Urea Nitrogen 8 7-18 MG/DL Creatinine 0.72 0.60-1.30 MG/DL Estimat Glomerular Filtration Rate > 60 BUN/Creatinine Ratio 11 Glucose Level 326 H 70-105 MG/DL Glucometer 332 H 70-110 MG/DL Lactic Acid Level 1.16 0.50-2.00 MMOL/L Calcium Level 9.1 8.5-10.1 MG/DL Magnesium Level 1.4 L 1.8-2.4 MG/DL Total Bilirubin 0.8 0.1-1.0 MG/DL Aspartate Amino Transf (AST/SGOT) 18 5-34 U/L Alanine Aminotransferase (ALT/SGPT) 18 0-55 U/L Alkaline Phosphatase 62 40-136 U/L C-Reactive Protein High Sensitivity 1.98 H 0.00-0.50 MG/DL Total Protein 8.8 H 6.4-8.2 GM/DL Albumin 4.2 3.2-4.5 GM/DL Lipase 22 8-78 U/L Urine Color YELLOW Urine Clarity CLEAR Urine pH 6.5 5-9 Urine Specific [place] 1.010 L 1.016-1.022 Urine Protein 3+ H NEGATIVE Urine Glucose (UA) 4+ H NEGATIVE Urine Ketones 3+ H NEGATIVE Urine Nitrite NEGATIVE NEGATIVE Urine Bilirubin NEGATIVE NEGATIVE Urine Urobilinogen NORMAL NORMAL MG/DL Urine Leukocyte Esterase 2+ H NEGATIVE Urine RBC (Auto) 1+ H NEGATIVE Urine RBC NONE /HPF Urine WBC 2-5 /HPF Urine Squamous Epithelial Cells >50 H /HPF Urine Crystals NONE /LPF Urine Bacteria TRACE /HPF Urine Casts NONE /LPF Urine Mucus NEGATIVE /LPF Urine Culture Indicated NO Urine Test NEGATIVE NEGATIVE My Orders Orders - FRANDY BATISTA Cbc With Automated Diff (01/06/18 08:03) Comprehensive Metabolic Panel (01/06/18 08:03) Hs C Reactive Protein (01/06/18 08:03) Hcg,Qualitative Urine (01/06/18 08:03) Lipase (01/06/18 08:03) Magnesium (01/06/18 08:03) Ua Culture If Indicated (01/06/18 08:03) Saline Lock/Iv-Start (01/06/18 08:03) Lactated Ringers (Lr 1000 Ml Iv Solution (01/06/18 08:03) Ketorolac Injection (Toradol Injection) (01/06/18 08:15) Ondansetron Injection (Zofran Injectio (01/06/18 08:15) Accucheck Stat ONCE (01/06/18 08:12) Lactic Acid Analyzer (01/06/18 08:12) Blood Culture (01/06/18 08:12) Sputum Culture (01/06/18 08:12) Protime With Inr (01/06/18 08:12) Partial Thromboplastin Time (01/06/18 08:12) Chest 1 View, Ap/Pa Only (01/06/18 08:12) O2 (01/06/18 08:12) Saline Lock/Iv-Start (01/06/18 08:12) Vital Signs Adult Sepsis Patie Q1H (01/06/18 08:12) Ceftriaxone Injection (Rocephin Injectio (01/06/18 08:12) Remove Rings In Anticipation O (01/06/18 08:12) Ns Iv 1000 Ml (Sodium Chloride 0.9%) (01/06/18 08:12) Fentanyl Injection (Sublimaze Injection (01/06/18 09:15) Ondansetron Injection (Zofran Injectio (01/06/18 09:15) Medications Given in ED Current Medications Medications Dose Ordered Sig/Faheem Route Start Time Stop Time Status Last Admin Dose Admin Fentanyl Citrate 50 mcg ONCE ONCE IVP 01/06/18 09:15 01/06/18 09:16 DC 01/06/18 09:19 50 MCG Ketorolac Tromethamine 15 mg ONCE ONCE IVP 01/06/18 08:15 01/06/18 08:16 DC 01/06/18 08:21 15 MG Lactated Ringer's 1,000 ml @ 0 mls/hr Q0M ONCE IV 01/06/18 08:03 01/06/18 08:05 DC 01/06/18 08:22 1,000 MLS/HR Ondansetron HCl 4 mg ONCE ONCE IVP 01/06/18 08:15 01/06/18 08:16 DC 01/06/18 08:21 4 MG Ondansetron HCl 4 mg ONCE ONCE IVP 01/06/18 09:15 01/06/18 09:16 DC 01/06/18 09:19 4 MG Sodium Chloride 1,000 ml @ 0 mls/hr Q0M ONCE IV 01/06/18 08:12 01/06/18 08:14 DC 01/06/18 09:20 1,000 MLS/HR Vital Signs/I&O Vital Sign - Last 12Hours 01/06/18 07:54 Temp 95.5 Pulse 135 Resp 18 B/P (MAP) 137/99 (112) Pulse Ox 97 Progress Note : Time: 08:11 Progress Note Differential includes diabetic ketoacidosis, pancreatitis, sepsis. Departure Communication (Admissions) Time/Spoke to Admitting Phy: 09:25 Communication Discussed case lab imaging findings and she is okay with admitting to the ICU for DKA hyperglycemic protocol. Impression Impression: Primary Impression: Diabetic ketoacidosis Qualified Codes: E11.10 - Type 2 diabetes mellitus with ketoacidosis without coma Additional Impression: Diabetes mellitus type 2, uncontrolled, with complications Disposition: ADMITTED INPATIENT Condition: Stable Admissions Decision to Admit Reason: Admit from ER (General) Decision to Admit/Date: Jan 06, 2018 Time/Decision to Admit Time: 09:30 Departure-Patient Inst. Referrals: [facility] ROSS MD (PCP/Family) Primary Care Physician Copy Copies To 1: CARA HILL TITUS J Jan 06, 2018 08:11
[2018-01-06] MEDS ORDERED: cefTRIAXone 1 GM (ROCEPHIN) VIAL IV STA (08:12)
[2018-01-06] MEDS ORDERED: NS IV 1000 ML 1,000 ML IV ONE (08:12)
[2018-01-06] MEDS ORDERED: ONDANSETRON 4 MG/2 ML (SDV) Z0FRAN IVP ONE ×2 (08:15→09:15)
[2018-01-06] MEDS ORDERED: KETOROLAC 30 MG/ML VIAL IVP ONE (08:15)
[2018-01-06 08:33] LABS: BASOPHILS % (AUTO) 0 % (0-10); EOSINOPHILS % (AUTO) 1 % (0-10); HEMATOCRIT 37 % (35-52); HEMOGLOBIN 12.6 G/DL (11.5-16.0); LYMPHOCYTES # (AUTO) 0.4 X 10^3 (1.0-4.0); LYMPHOCYTES % (AUTO) 11 % (12-44); MEAN CORPUSCULAR HEMOGLOBIN 30 PG (25-34); MEAN CORPUSCULAR HGB CONC 35 G/DL (32-36); MEAN CORPUSCULAR VOLUME 87 FL (80-99); MONOCYTES # (AUTO) 0.2 X 10^3 (0.0-1.0); MONOCYTES % (AUTO) 5 % (0-12); NEUTROPHILS % (AUTO) 84 % (42-75); PLATELET COUNT 161 10^3/uL (130-400); RED BLOOD COUNT 4.19 10^6/uL (4.35-5.85); WHITE BLOOD COUNT 3.6 10^3/uL (4.3-11.0)
[2018-01-06 08:46] LABS: INR 0.9 (0.8-1.4); PROTHROMBIN TIME PATIENT 12.3 SEC (12.2-14.7)
[2018-01-06 08:49] LABS: ALANINE AMINOTRANSFERASE 18 U/L (0-55); ALBUMIN 4.2 GM/DL (3.2-4.5); ALKALINE PHOSPHATASE 62 U/L (40-136); BILIRUBIN,TOTAL 0.8 MG/DL (0.1-1.0); BUN/CREATININE RATIO 11; CALCIUM 9.1 MG/DL (8.5-10.1); CARBON DIOXIDE 20 MMOL/L (21-32); CHLORIDE 95 MMOL/L (98-107); CREATININE SERUM 0.72 MG/DL (0.60-1.30); GFR ESTIMATED > 60; GLUCOSE 326 MG/DL (70-105); LIPASE 22 U/L (8-78); MAGNESIUM 1.4 MG/DL (1.8-2.4); POTASSIUM 4.1 MMOL/L (3.6-5.0); SODIUM 133 MMOL/L (135-145); TOTAL PROTEIN 8.8 GM/DL (6.4-8.2)
[2018-01-06 08:53] LABS: BILIRUBIN,URINE NEGATIVE (NEGATIVE); GLUCOSE, URINE (UA) 4+ (NEGATIVE); KETONES,URINE 3+ (NEGATIVE); LEUKOCYTE ESTERASE ,URINE 2+ (NEGATIVE); NITRITE,URINE NEGATIVE (NEGATIVE); PH,URINE 6.5 (5-9); PROTEIN,URINE 3+ (NEGATIVE); UROBILINOGEN,URINE NORMAL (NORMAL)
[2018-01-06 08:54] LABS: BACTERIA,URINE TRACE /HPF; CLARITY,URINE CLEAR; COLOR,URINE YELLOW; SQUAMOUS EPITHELIAL CELL,UR >50 /HPF
--- NOTE | 2018-01-06 09:07 | Diagnostic Imaging Report ---
INDICATION: Headache and nausea and vomiting and dizziness. Frontal chest obtained at 8:56 hours am. Heart and mediastinal silhouette are normal in appearance. The lungs are clear. There is no pneumothorax or pleural fluid. IMPRESSION: Negative chest. No change from 07/29/2017. Dictated by: Dictated on workstation # [id number]
[2018-01-06] MEDS ORDERED: fentaNYL INJECTION 100 MCG/2 ML AMP IVP ONE (09:15)
[2018-01-06 10:30] VITALS: BP 121/87
[2018-01-06] MEDS ORDERED: fentaNYL INJECTION 100 MCG/2 ML AMP ONE (11:54)
[2018-01-06] MEDS: fentaNYL INJECTION 100 MCG/2 ML AMP IVP PRN ×3 (11:59→17:18)
[2018-01-06] MEDS ORDERED: DEXTROSE 10% IV SOLUTION 1,000 ML IV SCH (12:00)
[2018-01-06] MEDS ORDERED: NS IV 1000 ML X 1 WIDE OPEN IV ONE (12:00)
[2018-01-06] MEDS ORDERED: 1/2 NS W/KCL 20 MEQ/L 1,000 ML IV PRN (12:00)
[2018-01-06] MEDS ORDERED: ONDANSETRON 4 MG/2 ML (SDV) Z0FRAN IVP PRN (12:00)
[2018-01-06] MEDS ORDERED: REGULAR inSUlin DRIP 250 UNITS/NS 250 ML IV SCH ×2 (12:00)
[2018-01-06] MEDS ORDERED: D5 1/2 NS IV 1,000 ML IV PRN (12:00)
[2018-01-06 12:15] VITALS: BP 118/82
[2018-01-06] MEDS: 1/2 NS IV SOLUTION 1,000 ML IV SCH ×2 (12:37→16:43)
[2018-01-06] MEDS: D5 1/2 NS W/KCL 20 MEQ/L 1,000 ML IV SCH ×2 (12:38→16:43)
[2018-01-06] MEDS: ACETAMINOPHEN 500 MG TAB (TYLENOL) PO PRN ×2 (13:14→21:13)
[2018-01-06 13:21] LABS: BUN/CREATININE RATIO 13; CALCIUM 8.1 MG/DL (8.5-10.1); CARBON DIOXIDE 20 MMOL/L (21-32); CHLORIDE 101 MMOL/L (98-107); CREATININE SERUM 0.64 MG/DL (0.60-1.30); GFR ESTIMATED > 60; GLUCOSE 224 MG/DL (70-105); POTASSIUM 3.7 MMOL/L (3.6-5.0); SODIUM 135 MMOL/L (135-145)
[2018-01-06 14:50] VITALS: BP 104/61
[2018-01-06] MEDS ORDERED: inSUlin DETERMIR 1 UNIT/0.01 ML (LEVEMIR) CHARGE PER UNIT SQ SCH (15:22)
[2018-01-06 16:00] LABS: BUN/CREATININE RATIO 13; CALCIUM 7.8 MG/DL (8.5-10.1); CARBON DIOXIDE 23 MMOL/L (21-32); CHLORIDE 102 MMOL/L (98-107); GFR ESTIMATED > 60; GLUCOSE 154 MG/DL (70-105); POTASSIUM 3.6 MMOL/L (3.6-5.0); SODIUM 135 MMOL/L (135-145)
[2018-01-06 16:34] VITALS: BP 104/61
[2018-01-06] MEDS ORDERED: INSU100V16 SC (16:38)
[2018-01-06] MEDS ORDERED: INSU100V5 SQ (16:38)
[2018-01-06] MEDS: inSUlin ASPART (NovoLOG) 1 UNIT/0.01 ML (CHARGE PER UNIT) SC SCH ×2 (16:44→21:19)
[2018-01-06 17:41] VITALS: BP 106/68
[2018-01-06] MEDS: NS IV 1000 ML 1,000 ML IV SCH (17:44)
[2018-01-06] MEDS ORDERED: CATHETER FLUSH 10 ML SYR IV PRN (18:30)
[2018-01-06 21:05] VITALS: BP 108/74
[2018-01-07 00:05] VITALS: BP 93/62
[2018-01-07] MEDS: NS IV 1000 ML 1,000 ML IV SCH (03:17)
[2018-01-07 04:11] VITALS: BP 137/76
[2018-01-07 06:39] LABS: BASOPHILS % (AUTO) 0 % (0-10); EOSINOPHILS % (AUTO) 1 % (0-10); HEMATOCRIT 28 % (35-52); HEMOGLOBIN 9.5 G/DL (11.5-16.0); LYMPHOCYTES % (AUTO) 39 % (12-44); MEAN CORPUSCULAR HEMOGLOBIN 30 PG (25-34); MEAN CORPUSCULAR HGB CONC 34 G/DL (32-36); MEAN CORPUSCULAR VOLUME 90 FL (80-99); MONOCYTES # (AUTO) 0.3 X 10^3 (0.0-1.0); MONOCYTES % (AUTO) 10 % (0-12); NEUTROPHILS # (AUTO) 1.3 X 10^3 (1.8-7.8); NEUTROPHILS % (AUTO) 49 % (42-75); PLATELET COUNT 145 10^3/uL (130-400); RED BLOOD COUNT 3.17 10^6/uL (4.35-5.85); WHITE BLOOD COUNT 2.6 10^3/uL (4.3-11.0)
[2018-01-07 07:16] LABS: ALANINE AMINOTRANSFERASE 22 U/L (0-55); ALBUMIN 3.1 GM/DL (3.2-4.5); ALKALINE PHOSPHATASE 39 U/L (40-136); BILIRUBIN,TOTAL 0.3 MG/DL (0.1-1.0); BUN/CREATININE RATIO 8; CALCIUM 7.8 MG/DL (8.5-10.1); CARBON DIOXIDE 23 MMOL/L (21-32); CHLORIDE 105 MMOL/L (98-107); GFR ESTIMATED > 60; GLUCOSE 136 MG/DL (70-105); MAGNESIUM 1.2 MG/DL (1.8-2.4); POTASSIUM 3.6 MMOL/L (3.6-5.0); SODIUM 137 MMOL/L (135-145); TOTAL PROTEIN 5.9 GM/DL (6.4-8.2)
[2018-01-07 08:15] VITALS: BP 106/74
--- NOTE | 2018-01-07 09:10 | Short Stay Summary ---
History of Present Illness History of Present Illness Reason for visit/HPI Patient presented to the ER with complaint of vomiting and abdominal pain. Patient states that she has a history of pancreatitis and DKA. She states that she has been out of her insulin for 1 month but thought that he blood sugars were being well controlled with diet. She states that she is in the process of getting a job and should be able to afford her insulin soon. Patient was informed that the clinic can provide her medications at a reduced cost. She voiced understanding. She is feeling better today and only complains of slight abdominal pain. She states she has not had a bowel movement yet. She has no difficulty with urination. Date of Admission Jan 06, 2018 at 09:15 Date of Discharge January 07, 2018 Time Seen by Provider: 09:00 Attending Physician Greer John MD Admitting Physician Aguila Sandhu MD Consult Allergies and Home Medications Allergies Coded Allergies: hydromorphone (Unverified Allergy, Intermediate, PT HAS TAKEN LORTAB & OXYCODONE IN THE PAST, 01/28/17) Itching Home Medications Insulin Aspart 100 Unit/1 Ml Susp, 15 UNIT SC ACHS, #10 Ref 2 Prescribed by: GREER JOHN on 01/06/18 1638 Insulin Determir 1,000 Units/10 Ml Soln, 40 UNIT SQ HS, #10 Ref 2 Prescribed by: GREER JOHN on 01/06/18 1638 Past Mydgelv-Emtwel-Ggbvdm Hx Patient Social History Alcohol Use: Denies Use Alcohol Beverage of Choice: Beer Recreational Drug Use: No Smoking Status: Never a Smoker 2nd Hand Smoke Exposure: No Physical Abuse Screen: No Sexual Abuse: No Recent Foreign Travel: No Contact w/other who traveled: No Recent Hopitalizations: No Recent Infectious Disease Expo: No Immunizations Up To Date Tetanus Booster (TDap): Unknown Pediatric: No Date of Pneumonia Vaccine: Oct 21, 2013 Date of Influenza Vaccine: Aug 10, 2017 Seasonal Allergies Seasonal Allergies: No Surgeries Yes (DENTAL SURGERY "teeth taken out") Tubal Ligation Respiratory No Cardiovascular Yes High Cholesterol Neurological No 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 System Hx 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 Disorders: No Sexually Transmitted Disease: No HIV/AIDS: No Female 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 Disorders: Denies 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 Genitourinary Yes Bladder Infection Gastrointestinal Yes (MULTIPLE ER VISITS AND ADMISSIONS FOR PANCREATITIS) Pancreatitis Musculoskeletal No Endocrine History of Endocrine Disorders: Yes Endocrine Disorders: Diabetes, Insulin dep HEENT History of HEENT Disorders: No Loss of Vision: Denies Hearing Impairment: Denies Cancer No Psychosocial History of Psychiatric Problem: No Integumentary History of Skin or Integumenta: Yes (rash/warts to elbows, knees, feet, boil on left abd) Skin/Integumentary Disorders: Recent Skin Changes Blood Transfusions History of Blood Disorders: No Adverse Reaction to a Blood Tr: No Family Medical History Significant Family History: Heart Disease, CAD Under 55 Years Old, Diabetes, GI Disease, Hypertension Family Hx: Cancer 03 MOTHER 09 BROTHER GRANDMOTHER Family history: Arthritis 03 MOTHER Family history: Breast disease 03 MOTHER Family history: Cardiovascular disease 03 MOTHER Family history: Diabetes mellitus 03 MOTHER 09 BROTHER GRANDMOTHER Constitutional: No chills, No dizziness, No fever, malaise EENTM: no symptoms reported Respiratory: No cough, No short of breath Cardiovascular: No chest pain, No edema, No palpitations Gastrointestinal: abdominal pain (Epigastric) Genitourinary: No dysuria, No frequency : No Musculoskeletal: No back pain, No muscle stiffness, No muscle cramps Skin: no symptoms reported Psychiatric/Neurological: No Symptoms Reported Physical Exam Vital Signs Vital Signs - First Documented 01/06/18 01/06/18 07:54 10:30 Temp 95.5 Pulse 135 Resp 18 B/P (MAP) 137/99 (112) Pulse Ox 97 O2 Delivery Room Air Capillary Refill : Less Than 3 Seconds General Appearance: No Apparent Distress Neck: Normal Inspection, Non Tender, Supple Respiratory: Lungs Clear, Normal Breath Sounds, No Accessory Muscle Use, No Respiratory Distress Cardiovascular: Regular Rate, Rhythm, No Edema, No Gallop, No Murmur Gastrointestinal: Normal Bowel Sounds, Soft, Tenderness (Mild Epigastric) Rectal: Deferred Back: No Vertebral Tenderness Extremity: Non Tender, No Pedal Edema Neurologic/Psychiatric: Alert, Oriented x3, Normal Mood/Affect Skin: Normal Color, Warm/Dry Lymphatic: No Adenopathy Clinical Quality Measures DVT/VTE Risk/Contraindication: RFS Level Per Nursing on Admit: 0=No Risk/No VTE PPX Short Stay Diagnosis Discharge Diagnosis-Short Stay Admission Diagnosis: DKA Final Discharge Diagnosis: DKA Conclusion Labs Laboratory Tests 01/06/18 11:20: Glucometer 275H 01/06/18 12:04: Glucometer 302H 01/06/18 12:55: Sodium Level 135, Potassium Level 3.7, Chloride Level 101, Carbon Dioxide Level 20L, Anion Gap 14, Blood Urea Nitrogen 8, Creatinine 0.64, Estimat Glomerular Filtration Rate > 60, BUN/Creatinine Ratio 13, Glucose Level 224H, Calcium Level 8.1L 01/06/18 14:15: Glucometer 199H 01/06/18 15:07: Glucometer 185H 01/06/18 15:29: Sodium Level 135, Potassium Level 3.6, Chloride Level 102, Carbon Dioxide Level 23, Anion Gap 10, Blood Urea Nitrogen 8, Creatinine 0.60, Estimat Glomerular Filtration Rate > 60, BUN/Creatinine Ratio 13, Glucose Level 154H, Calcium Level 7.8L 01/06/18 16:17: Glucometer 143H 01/06/18 17:17: Glucometer 129H 01/06/18 21:10: Glucometer 207H 01/07/18 05:55: White Blood Count 2.6L, Red Blood Count 3.17L, Hemoglobin 9.5#L, Hematocrit 28L , Mean Corpuscular Volume 90, Mean Corpuscular Hemoglobin 30, Mean Corpuscular Hemoglobin Concent 34, Red Cell Distribution Width 12.0, Platelet Count 145, Mean Platelet Volume 11.0H, Neutrophils (%) (Auto) 49, Lymphocytes (%) (Auto) 39 , Monocytes (%) (Auto) 10, Eosinophils (%) (Auto) 1, Basophils (%) (Auto) 0, Neutrophils # (Auto) 1.3L, Lymphocytes # (Auto) 1.0, Monocytes # (Auto) 0.3, Eosinophils # (Auto) 0.0, Basophils # (Auto) 0.0, Sodium Level 137, Potassium Level 3.6, Chloride Level 105, Carbon Dioxide Level 23, Anion Gap 9, Blood Urea Nitrogen 4L, Creatinine 0.50L, Estimat Glomerular Filtration Rate > 60, BUN/ Creatinine Ratio 8, Glucose Level 136H, Calcium Level 7.8L, Magnesium Level 1.2L , Total Bilirubin 0.3, Aspartate Amino Transf (AST/SGOT) 32, Alanine Aminotransferase (ALT/SGPT) 22, Alkaline Phosphatase 39L, Total Protein 5.9L, Albumin 3.1L 01/07/18 05:58: Glucometer 147H Conclusion/Plan Patient was admitted and DKA protocol was followed. 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 She should take 40 units of Levemir and 15 units of Novolog sliding scale. She was told to keep her appointment with Dr. Sandhu January 28. CORNELL JUAN MED STUDENT Jan 07, 2018 09:10
--- NOTE | 2018-01-07 10:43 | Discharge Instructions ---
Discharge [facility] Discharge Medications New, Converted or Re-Newed RX: Transmitted to Pharmacy New Medications: Insulin Aspart (Novolog) 100 Unit/1 Ml Susp 15 UNIT SC ACHS, #10 ML 2 Refills Insulin Determir (Levemir) 1,000 Units/10 Ml Soln 40 UNIT SQ HS, #10 ML 2 Refills Patient Instructions Goal/Follow Up Appt: January 28 9:[address] Ross Patient Instructions: Please take your insulin as prescribed. Return to The Hospital For: inability to keep liquids down, BS >500 with ketones in your urine Activity & Diet Discharge Diet: ADA Diet Activity as Tolerated: Yes Copy Copies To 1: [facility] ROSS MD, JULIE A MD Jan 07, 2018 10:43 am
== END 2018-01-07 11:15 | disposition home or self-care (01) | DRG 639 ==
LOC: EDUNIT# 07:51 → ER 07:53 → ICU 09:15 → 4TH 14:50 → WS 18:34
PROVIDERS: ADMIT Pediatrics; ATTEND Pediatrics
DX: E11.10 Type 2 diabetes mellitus with ketoacidosis without coma (principal); Z23 Encounter for immunization
CPT/HCPCS: 36415; 71045; 80048; 80053; 81000; 82962; 83605; 83690; 83735; 84703; 85025; 85610; 85730; 86141; 87040; 96361; 96365; 96375; 96376; 99285